=== PATIENT | female | born 1975 | race African-American/Black ===

== ENCOUNTER 2016-07-14 22:16 | Emergency (ER) | payer MEDICAID ==
[~2016-07-14] VITALS: Ht 185.4 cm; Wt 113.4 kg
[2016-07-14 22:31] VITALS: BP 139/88
[2016-07-15] MEDS ORDERED: KETOROLAC TROMETH 60MG/2ML VIAL IM ONE (03:30)
== END 2016-07-15 05:18 | disposition home or self-care (01) ==
LOC: ER 22:21
DX: S33.5XXA Sprain of ligaments of lumbar spine, initial encounter (principal); M54.16 Radiculopathy, lumbar region; G89.29 Other chronic pain; M54.5 Low back pain; W18.39XA Other fall on same level, initial encounter; Y93.89 Activity, other specified; Y92.89 Other specified places as the place of occurrence of the external cause; Y99.8 Other external cause status
CPT/HCPCS: 72131; 96372; 99284; J1885

== ENCOUNTER 2016-07-30 15:13 | Emergency (ER) | payer MEDICAID ==
[~2016-07-30] VITALS: Ht 185.4 cm; Wt 113.4 kg
[2016-07-30 15:25] VITALS: BP 137/88
[2016-07-30 16:59] LABS: Urine Bilirubin Negative (Negative); Urine Color Yellow (Yellow); Urine Glucose Normal (Normal); Urine Ketone Negative (Negative); Urine Nitrite Negative (Negative); Urine RBC 6 /hpf (0 - 4); Urine Squamous Epithelial Cell MOD /hpf (<5); Urine WBC Clumps PRESENT /hpf (None Seen)
[2016-07-30 17:39] LABS: Urine Blood 2+ /uL (Negative)
== END 2016-07-30 18:13 | disposition left against medical advice (07) ==
LOC: ER 15:20
DX: M54.5 Low back pain (principal); Z53.21 Procedure and treatment not carried out due to patient leaving prior to being seen by health care provider
CPT/HCPCS: 81001; 81025

== ENCOUNTER 2019-08-08 11:20 | Inpatient (IN) | payer MEDICAID ==
[~2019-08-08] VITALS: Ht 180.3 cm; Wt 127.0 kg
[2019-08-08 11:59] LABS: Urine Bacteria FEW /hpf (None Seen); Urine Blood 2+ /uL (Negative); Urine Mucus FEW (None Seen); Urine Specific Gravity 1.019 (1.001-1.035); Urine WBC 18 /hpf (0 - 5)
[2019-08-08] MEDS ORDERED: SODIUM CHLORIDE 0.9% 1,000 ML IVB ONE (12:38)
[2019-08-08] MEDS ORDERED: ONDANSETRON HCL 4 MG/2 ML VIAL IV ONE (12:45)
[2019-08-08 13:27] LABS: Basophils # (auto) 0.1 10 ^3/uL (0-0.2); Eosinophils # (auto) 0 10 ^3/uL (0-0.8); Eosinophils % (auto) 0.5 % (0.0-7.0); Neutrophils # (auto) 5.7 10 ^3/uL (1.6-8.6)
[2019-08-08 13:29] LABS: Basophils % (auto) 0.7 % (0.0-2.0); Hematocrit 45.3 % (36.0-46.0); Hemoglobin 15.1 g/dL (12.2-16.2); Lymphocytes # (auto) 1.9 10 ^3/uL (0.4-5.4); Lymphocytes % (auto) 22.2 % (10.0-50.0); Mean Corpuscular Hemoglobin 27.2 pg (28.0-32.0); Mean Corpuscular Hgb Conc. 33.3 g/dL (32.0-36.0); Mean Corpuscular Volume 81.7 fL (80.0-100.0); Monocytes # (auto) 0.7 10 ^3/uL (0-1.3); Monocytes % (auto) 8.6 % (0.0-12.0); Nucleated Red Blood Cells % 0.1 %; Platelet Count (auto) 511 10^3/uL (140-450); Red Blood Cells 5.54 10^6/uL (4.0-5.20); Red Cell Distribution Width 14.7 % (11.8-14.3); White Blood Cell 8.4 10^3/uL (4.4-10.8)
[2019-08-08 13:45] LABS: Albumin 3.4 g/dL (3.4-5.0)
[2019-08-08] MEDS ORDERED: MORPHINE SULF INJ 2 MG/ML SYRINGE 1ML IV ONE (13:45)
[2019-08-08 13:49] LABS: Bilirubin, Total 0.5 mg/dL (0.2-1.0); Total Protein 8.2 g/dL (6.4-8.2)
[2019-08-08 13:56] LABS: Magnesium 2.5 mg/dL (1.6-2.6)
[2019-08-08 14:08] LABS: Potassium 2.2 mmol/L (3.5-5.1)
[2019-08-08] MEDS ORDERED: POTASSIUM CHL 20MEQ/100ML 100 ML IV SCH (14:30)
[2019-08-08] MEDS ORDERED: cefTRIAXone 1GM/50ML D5W 50 ML IV ONE ×2 (14:30→15:30)
[2019-08-08] MEDS ORDERED: MORPHINE SULF INJ 2 MG/ML SYRINGE 1ML IV PRN (15:30)
[2019-08-08] MEDS ORDERED: ACETAMINOPHEN 500 MG TAB PO PRN (15:30)
[2019-08-08] MEDS ORDERED: traMADol HCL 50 MG TAB PO PRN (15:30)
[2019-08-08] MEDS: FAMOTIDINE (10MG/ML) 2ML VL IV SCH (15:30)
[2019-08-08] MEDS ORDERED: NITROGLYCERIN 0.4 MG SL TAB SL PRN (15:30)
[2019-08-08] MEDS ORDERED: POTASSIUM EFFERVESENT TAB 25 MEQ PO ONE (15:30)
[2019-08-08] MEDS ORDERED: TEMAZEPAM 15 MG CAP PO PRN (15:30)
[2019-08-08 17:00] VITALS: BP 135/73
[2019-08-08] MEDS: PROMETHAZINE HCL 25 MG/ML 1ML IV PRN (17:12)
[2019-08-08] MEDS: SOD CHL 0.9%/ KCL 40MEQ 1,000 ML IV SCH (17:30)
[2019-08-08] MEDS: POTASSIUM CHL 20MEQ/100ML 100 ML IV SCH ×3 (17:30→22:34)
--- NOTE | 2019-08-08 17:30 | NUR ---
Telemetry admit from DIANA GUARDADO,MAY WERNER admitted to Telemetry unit after SBAR received. Patient oriented to Janay Lewis, primary RN, unit, room, bed, and unit policies regarding patient care and visiting hours. Patient now on continuous telemetry monitoring, tele box #4 and telemetry reading on arrival to unit is SR. Patient placed on bedside oxygen, weighed by bedscale and encouraged to call if they need something. All questions and concerns addressed, patient verbalized understanding. Patient is vomitting. Patient is c/o abdominal pain, rates it 9/10.
[2019-08-08] MEDS ORDERED: HCTZ25T PO (18:17)
[2019-08-08] MEDS: MORPHINE SULF INJ 2 MG/ML SYRINGE 1ML IV PRN (18:20)
--- NOTE | 2019-08-08 18:36 | NUR ---
PAIN Pain medication administered per MD orders.
--- NOTE | 2019-08-08 19:00 | NUR ---
closing note Patient comfortably resting, no s/s of distress noted. Bed at lowest locked position and call light within reach. Care endorsed to NOC RN.
--- NOTE | 2019-08-08 19:45 | NUR ---
Opening Shift Note Assumed care of patient, resting in bed with breaths even and unlabored. No S/S of distress/SOB or pain noted. Bed is in lowest locked position with bed rails up x2 and call light is within reach. Instructed on POC and to call for assist PRN.
[2019-08-08 22:00] VITALS: BP 111/48
[2019-08-09] MEDS: FAMOTIDINE (10MG/ML) 2ML VL IV SCH ×2 (04:24→15:03)
[2019-08-09] MEDS: SOD CHL 0.9%/ KCL 40MEQ 1,000 ML IV SCH ×4 (04:28→20:33)
[2019-08-09 05:00] VITALS: BP 102/62
[2019-08-09 05:38] LABS: Basophils # (auto) 0 10 ^3/uL (0-0.2); Basophils % (auto) 0.7 % (0.0-2.0); Eosinophils # (auto) 0.2 10 ^3/uL (0-0.8); Eosinophils % (auto) 2.5 % (0.0-7.0); Hematocrit 39.9 % (36.0-46.0); Hemoglobin 13.2 g/dL (12.2-16.2); Lymphocytes # (auto) 1.3 10 ^3/uL (0.4-5.4); Lymphocytes % (auto) 19.6 % (10.0-50.0); Mean Corpuscular Hemoglobin 27.3 pg (28.0-32.0); Mean Corpuscular Hgb Conc. 33.1 g/dL (32.0-36.0); Mean Corpuscular Volume 82.3 fL (80.0-100.0); Monocytes # (auto) 0.7 10 ^3/uL (0-1.3); Monocytes % (auto) 11.3 % (0.0-12.0); Neutrophils # (auto) 4.2 10 ^3/uL (1.6-8.6); Neutrophils % (auto) 65.9 % (37.0-80.0); Nucleated Red Blood Cells % 0.1 %; Platelet Count (auto) 395 10^3/uL (140-450); Red Blood Cells 4.85 10^6/uL (4.0-5.20); Red Cell Distribution Width 14.6 % (11.8-14.3); White Blood Cell 6.4 10^3/uL (4.4-10.8)
[2019-08-09 05:52] LABS: Albumin 2.7 g/dL (3.4-5.0); Calcium 8.2 mg/dL (8.5-10.1)
[2019-08-09 05:57] LABS: BUN/Creatinine Ratio 11.7; Bilirubin, Total 0.5 mg/dL (0.2-1.0); Total Protein 6.6 g/dL (6.4-8.2)
--- NOTE | 2019-08-09 06:13 | NUR ---
Critical lab, Hospitalist paged: Critical potassium level of 2.6 received. Paged hospitalist regarding critical potassium level. Waiting for call back.
[2019-08-09 06:14] LABS: Potassium 2.6 mmol/L (3.5-5.1)
--- NOTE | 2019-08-09 06:17 | NUR ---
Hospitalist called back: Hospitalist Elke called back. Notified of critical potassium level. New orders received, to place orders.
[2019-08-09] MEDS ORDERED: POTASSIUM CHL 20MEQ/100ML 100 ML IV ONE ×2 (06:30→09:00)
--- NOTE | 2019-08-09 07:45 | NUR ---
CALLED PHARMACY: Called pharmacy to clarify and fix K rider order. 40 meq potassium k rider was ordered by the MD. One bag of 20 meq potassium was given, need one more to be scheduled. Pharmacy to correct order and schedule last bag of potassium k rider for total of 40 meq.
--- NOTE | 2019-08-09 08:00 | NUR ---
Opening Shift Note Assumed care of patient, awake, alert, and oriented. No S/S of distress/SOB or pain. Bed in lowest/locked position, bed rails up x2, call light within reach. Instructed on POC and to call for assist PRN. Will continue to monitor for changes Q1hr and PRN.
[2019-08-09] MEDS: cefTRIAXone 1GM/50ML D5W 50 ML IV SCH (08:51)
[2019-08-09 09:08] VITALS: BP 125/80
[2019-08-09 12:33] VITALS: BP 112/71
--- NOTE | 2019-08-09 14:16 | NUR ---
CRITICAL LAB RECEIVED CRITICAL POTASSIUM 2.9. DR GARRISON MADE AWARE. NEW ORDERS RECEIVED/WILL CARRY OUT. WILL CONTINUE TO MONITOR
[2019-08-09] MEDS ORDERED: POTASSIUM CHL 20 Meq TABLET PO ONE (14:30)
[2019-08-09] MEDS ORDERED: POTASSIUM CHLORIDE 40 MEQ, LIDOCAINE 1% (LOCAL ANESTH.) 4 ML in SODIUM CHL 0.9% 100 ML IV ONE (14:30)
[2019-08-09] MEDS: metroNIDAZOLE 500MG/100ML 100 ML IV SCH ×2 (15:03→21:30)
[2019-08-09 17:13] VITALS: BP 101/75
[2019-08-09 23:23] VITALS: BP 124/79
--- NOTE | 2019-08-10 03:25 | NUR ---
OPENING SHIFT NOTE: ARRIVED ON SHIFT REPORT RECEIVED. PATIENT RESTING IN BED, NO SIGNS OF DISTRESS. RESPIRATIONS EVEN AND UNLABORED. WILL CONTINUE TO MONITOR.
[2019-08-10] MEDS: FAMOTIDINE (10MG/ML) 2ML VL IV SCH ×3 (04:29→21:08)
[2019-08-10 05:00] VITALS: BP 112/80
[2019-08-10 06:23] LABS: INR 1.03 (0.9-1.15); Partial Thromboplastin Time 28.6 sec (23.64-32.05)
[2019-08-10 06:27] LABS: Potassium 3.2 mmol/L (3.5-5.1)
[2019-08-10] MEDS: metroNIDAZOLE 500MG/100ML 100 ML IV SCH ×3 (06:33→21:09)
[2019-08-10 06:35] LABS: BUN/Creatinine Ratio 12.9; Calcium 8.1 mg/dL (8.5-10.1)
--- NOTE | 2019-08-10 08:06 | NUR ---
PATIENT TAKEN DOWN TO HIDA SCAN.
[2019-08-10 08:57] VITALS: BP 103/69
--- NOTE | 2019-08-10 12:02 | NUR ---
PATIENT TAKEN DOWN TO OR.
--- NOTE | 2019-08-10 12:45 | NUR ---
CALL FROM PACU: PATIENT ADMITTED TO SIPPING COFFEE LEFT FROM NEIGHBORS TRAY AFTER HIDA SCAN. PATIENT TO BE BROUGHT BACK UP TO THE FLOOR.
--- NOTE | 2019-08-10 12:50 | NUR ---
PATIENT BACK FROM OR. NO PROCEDURE DONE AT THIS TIME. PATIENT RE-SCHEDULED FOR TOMORROW.
[2019-08-10 13:00] VITALS: BP 118/73
--- NOTE | 2019-08-10 15:20 | NUR ---
PATIENT GIVEN SANDWICH AND SNACKS.
[2019-08-10] MEDS: SOD CHL 0.9%/ KCL 40MEQ 1,000 ML IV SCH (15:33)
[2019-08-10] MEDS: cefTRIAXone 1GM/50ML D5W 50 ML IV SCH (15:33)
[2019-08-10] MEDS: PROMETHAZINE HCL 25 MG/ML 1ML IV PRN ×2 (17:03→20:58)
[2019-08-10 18:18] VITALS: BP 125/73
--- NOTE | 2019-08-10 19:26 | NUR ---
CARE ENDORSED TO MELISSA PÉREZ.
[2019-08-10] MEDS: MORPHINE SULF INJ 2 MG/ML SYRINGE 1ML IV PRN (20:59)
[2019-08-10 22:00] VITALS: BP 137/89
[2019-08-11] MEDS: SOD CHL 0.9%/ KCL 40MEQ 1,000 ML IV SCH ×2 (04:25→17:12)
[2019-08-11 05:00] VITALS: BP 108/60
[2019-08-11] MEDS: metroNIDAZOLE 500MG/100ML 100 ML IV SCH ×3 (05:31→21:48)
[2019-08-11 07:00] LABS: Potassium 3.2 mmol/L (3.5-5.1)
[2019-08-11 07:06] LABS: BUN/Creatinine Ratio 11.3; Calcium 8.1 mg/dL (8.5-10.1)
[2019-08-11] MEDS ORDERED: ceFAZolin 1GM/50ML 50 ML IV ONE (07:17)
[2019-08-11] MEDS ORDERED: LIDOCAINE 1% (LOCAL ANESTH.) PF 5ml SDV ONE (07:36)
[2019-08-11] MEDS ORDERED: SUCCINYLCHOLINE CHLORIDE 20 MG/ML 10ML VIAL IV ONE (07:37)
[2019-08-11] MEDS ORDERED: MIDAZOLAM HCL 1MG/1ML-2 ML VIAL ONE (07:39)
[2019-08-11] MEDS ORDERED: METOCLOPRAMIDE HCL 5MG/ml INJ 2ml VIAL ONE (07:41)
[2019-08-11] MEDS ORDERED: ROCURONIUM 10MG/ML 10ML VIAL IV ONE (07:41)
[2019-08-11] MEDS ORDERED: PROPOFOL 10 MG/ML 20 ML IV ONE (07:41)
[2019-08-11] MEDS ORDERED: fentaNYL CITRATE 100 MCG/2 ML VL ONE (07:50)
[2019-08-11] MEDS ORDERED: NALOXONE HCL 0.4 MG/ML VIAL IV PRN (08:00)
[2019-08-11] MEDS ORDERED: HYDROmorphone HCL 2 MG/ML VL IV PRN ×2 (08:00)
[2019-08-11] MEDS ORDERED: ONDANSETRON HCL 4 MG/2 ML VIAL IV PRN (08:00)
[2019-08-11] MEDS ORDERED: KETOROLAC TROMETH 30 MG/ML 1ML VIAL ONE (08:06)
[2019-08-11] MEDS ORDERED: ESMOLOL HCL 10 ML IV ONE (08:09)
[2019-08-11] MEDS ORDERED: GLYCOPYRROLATE 0.2 MG/ML 1ML VIAL ONE (08:42)
[2019-08-11] MEDS ORDERED: NEOSTIGMINE 1 MG/ML INJ (10mg/10ML VIAL) ONE (08:42)
--- NOTE | 2019-08-11 09:00 | NUR ---
Unable to obtain 0900 vitals. Pt is downstairs in OR at this time .
--- NOTE | 2019-08-11 09:50 | NUR ---
PT IS BACK TO HER ROOM VIA HOSPITAL BED TO HER ROOM 215B, ALERT ORIENTED X4, SLEEPY, AND OCCASIONALLY MOANING FROM PAIN AT THE SURGICAL SITE, HEAD OF BED ELEVATED, OXYGEN 2 L NC, BED ALARM ACTIVATED
--- NOTE | 2019-08-11 09:51 | NUR ---
PT HAS ABDOMINAL BINDER, 3 SMALL INCISION NOTED WITH RT LOWER ADDY DRAINAGE WITH 3 ML RED DRAINAGE
[2019-08-11] MEDS: cefTRIAXone 1GM/50ML D5W 50 ML IV SCH (10:04)
[2019-08-11] MEDS: FAMOTIDINE (10MG/ML) 2ML VL IV SCH ×2 (10:05→21:48)
[2019-08-11] MEDS: MORPHINE SULF INJ 2 MG/ML SYRINGE 1ML IV PRN (10:20)
--- NOTE | 2019-08-11 10:30 | NUR ---
BED SIDE COMMODE ASSISTED PT TO BSC TO URINATE, KEPT CLEAN AND DRY, PT WAS ABLE TO GO BACK IN BED WITHOUT ANY ASSISTANCE
--- NOTE | 2019-08-11 11:00 | NUR ---
DR GARRISON AT BED SIDE FOLLOWING UP ON PT
[2019-08-11 13:00] VITALS: BP 141/76
--- NOTE | 2019-08-11 13:40 | NUR ---
PAIN AT SURGICAL SITE PT IS VERY INCONSOLABLE, VERY UNCOMFORTABLY, PAIN 10/10 AT SURGICAL SITE, NEW ORDERS OF DILAUDID OBTAIN
[2019-08-11] MEDS: HYDROmorphone HCL 2 MG/ML VL IV PRN ×3 (13:50→21:00)
--- NOTE | 2019-08-11 14:47 | NUR ---
Nutrition Assessment Notes Please refer to link for full assessment notes. Est Energy needs: 1777-8740 kcals (14-18 kcal/kgBW) Est Protein needs: 106-141 gms/day (1.5-2.0 gm/kgIBW) d/t pt adiposity Will continue to monitor and reassess prn. Addendum: 08/11/19 at [address] Amended: Links added.
[2019-08-11 17:00] VITALS: BP 148/68
--- NOTE | 2019-08-11 18:25 | NUR ---
PT CONTINUE STABLE, TOLERATING DILAUDID WELL, ABLE TO USE BSC NEEDED, CONTINUE MONITORING
--- NOTE | 2019-08-11 20:00 | NUR ---
OPENING NOTE RECEIVED REPORT FROM BHARTI RN. ASSUMING ROLE OF CARE OF PATIENT AT THIS TIME. PATIENT SHOWING NO SIGNS OF PAIN, SHORTNESS OF BREATH, OR DISTRESS AT THIS TIME. DRESSING INSPECTED. DRIED BLOOD NOTED AROUND INCISION SITES. WILL CONTINUE TO MONITOR. PATIENT EDUCATED ON PLAN OF CARE FOR THE NIGHT AND PATIENT VERBALIZED UNDERSTANDING. BED LOWERED, CALL LIGHT WITHIN REACH AND PATIENT WILL BE ROUNDED ON EVERY HOUR AND NEEDED.
[2019-08-11 22:00] VITALS: BP 132/81
[2019-08-12] MEDS: HYDROmorphone HCL 2 MG/ML VL IV PRN ×5 (01:42→21:58)
[2019-08-12] MEDS: SOD CHL 0.9%/ KCL 40MEQ 1,000 ML IV SCH (03:15)
[2019-08-12 05:00] VITALS: BP 119/70
--- NOTE | 2019-08-12 05:20 | NUR ---
ADDY DRAIN EMPTIED OF APPROXIMATELY 50 ML OF SANGUINEOUS FLUID.
[2019-08-12] MEDS: metroNIDAZOLE 500MG/100ML 100 ML IV SCH ×3 (05:38→21:58)
[2019-08-12 07:42] LABS: BUN/Creatinine Ratio 9.9; Calcium 8.3 mg/dL (8.5-10.1); Potassium 3.5 mmol/L (3.5-5.1)
[2019-08-12 09:00] VITALS: BP 109/76
[2019-08-12] MEDS: cefTRIAXone 1GM/50ML D5W 50 ML IV SCH (11:15)
[2019-08-12 13:00] VITALS: BP 123/76
[2019-08-12 17:00] VITALS: BP 129/77
--- NOTE | 2019-08-12 19:54 | NUR ---
RECEIVED PATIENT FROM DAY SHIFT RN. PATIENT RESTING IN BED. NO S/S OF DISTRESS NOTED. C/O PAIN @ 5/10 AFTER PAIN MEDICATION GIVEN EARLIER. REINFORCED SCHEDULE OF PAIN MANAGEMENT. WILL COME BACK FOR PAIN MEDICATION LATER WHEN THE TIME IS DUE AND PER PATIENT REQUESTS. DRESSING ON ABD D/I WITH ABD BINDER ON. ADDY DRAIN IN PLACE. POC INSTRUCTED AND ENCOURAGED PATIENT TO CALL FOR YARDER OPERATOR IF NEEDED. BED IN LOWEST POSITION WITH SIDE RAILS UP X 2. CALL TATUM WITHIN REACH. CONTINUE TO MONITOR FOR CHANGES Q1H AND PRN.
[2019-08-12] MEDS: FAMOTIDINE 20 MG TAB PO SCH (21:58)
[2019-08-12 22:00] VITALS: BP 127/77
--- NOTE | 2019-08-12 22:10 | NUR ---
PATIENT C/O PAIN @ 09/19. MEDICATED PATIENT ORDERED. CONTINUE TO MONITOR.
--- NOTE | 2019-08-12 22:25 | NUR ---
REASSESSED PAIN 08/19. CONTINUE TO MONITOR.
[2019-08-13] MEDS: HYDROmorphone HCL 2 MG/ML VL IV PRN ×3 (01:17→09:22)
--- NOTE | 2019-08-13 01:18 | NUR ---
PATIENT C/O PAIN @ 10/20. MEDICATED PATIENT ORDERED. CONTINUE TO MONITOR.
--- NOTE | 2019-08-13 01:45 | NUR ---
REASSESSED PAIN 06/19. CONTINUE TO MONITOR.
--- NOTE | 2019-08-13 02:57 | NUR ---
PATIENT SLEEPING. NO S/S OF DISTRESS AND PAIN NOTED. CONTINUE TO MONITOR.
[2019-08-13 05:00] VITALS: BP_SYST 106; BP_SYST 122; BP_DIAS 52; BP_DIAS 67
[2019-08-13] MEDS: metroNIDAZOLE 500MG/100ML 100 ML IV SCH (06:13)
--- NOTE | 2019-08-13 06:14 | NUR ---
PATIENT C/O PAIN @ 09/19. MEDICATED PATIENT ORDERED. CONTINUE TO MONITOR.
[2019-08-13 07:18] LABS: Calcium 8.2 mg/dL (8.5-10.1); Potassium 3.3 mmol/L (3.5-5.1)
[2019-08-13] MEDS ORDERED: POTASSIUM CHL 20 Meq TABLET PO ONE (08:00)
--- NOTE | 2019-08-13 08:00 | NUR ---
ASSESSMENT NOTE PT IS ALERT ORIENTED X4, RESTING IN BED COMFORTABLY IN LOW BLANCHARD POSITION, DENIES PAIN AT THIS TIME 0/10, ABLE TO SELF REPOSITION AND VERBALIS HER NEEDS, AMBULATE NEEDED, PT CONTINUE TO HAVE ADDY DRAINAGE AT RT LOWER ABDOMEN, NO OUTPUT YET, 3 SMALL DRY DRESSING NOTED, ABDOMEN BINDER, CALL LIGHT WITHIN REACH
[2019-08-13] MEDS: cefTRIAXone 1GM/50ML D5W 50 ML IV SCH (08:48)
[2019-08-13] MEDS: FAMOTIDINE 20 MG TAB PO SCH (08:48)
[2019-08-13 09:00] VITALS: BP 109/63
--- NOTE | 2019-08-13 09:30 | NUR ---
DR GARRISON AT BED SIDE FOLLOWING UP ON PT, INFORM PT THAT SHE WILL ADVANCE HER DIET TO SOFT, AND PLANING TO DISCHARGE HOME TODAY AFTER LUNCH, IF TOLERATED DIET WELL
[2019-08-13] MEDS ORDERED: DOCUSATE SOD 100 MG CAP PO SCH (10:00)
[2019-08-13] MEDS ORDERED: levoFLOXacin 500 MG TAB PO SCH (10:00)
[2019-08-13] MEDS ORDERED: POTA-220 PO (11:55)
[2019-08-13] MEDS ORDERED: LEVO-28 PO (11:55)
[2019-08-13] MEDS ORDERED: FAMO20TA10 PO (11:55)
[2019-08-13] MEDS ORDERED: MET500T PO (11:55)
[2019-08-13 13:00] VITALS: BP 110/59
[2019-08-13] MEDS ORDERED: metroNIDAZOLE 500 MG TAB PO SCH (14:00)
--- NOTE | 2019-08-13 14:03 | NUR ---
PT TOLERATED DIET WELL, DR GARRISON MADE AWARE
--- NOTE | 2019-08-13 15:30 | NUR ---
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
--- NOTE | 2019-08-13 15:50 | NUR ---
SPOKE WITH DR GARRISON REGARDING RX OF [facility], RX IN THE CHART, GIVEN TO PT, SIGN RX COPY ON RECIEVING
--- NOTE | 2019-08-13 15:52 | NUR ---
[facility] HOME PT IS WAITING FOR HER MOM TO PICK HER UP, A NEW ABDOMINAL BINDER GIVEN TO PT
--- NOTE | 2019-08-13 16:31 | NUR ---
Discharge instructions given as ordered. Encourage to follow up with PMD as instructed. All questions and concerns addressed. Patient verbalized understanding. Medication reconciliation form completed and copy given to patient . IV removed with catheter intact, pressure dressing applied. Patient taken to vehicle via wheelchair with all personal belongings, accompanied by staff and family member. No distress noted at time of departure.
== END 2019-08-13 16:30 | disposition home or self-care (01) | DRG 263 ==
LOC: EDBD 11:20 → ER 11:20 → TELE 11:21 → TELE-CENTR 17:25 → CENTRAL 08-12 10:34
PROVIDERS: ADMIT Internal Medicine; ATTEND Internal Medicine
PROC: 0DNU4ZZ Release Omentum, Percutaneous Endoscopic Approach (ICD-10-PCS; 2019-08-11)
PROC: 3E013GC Introduction of Other Therapeutic Substance into Subcutaneous Tissue, Percutaneous Approach (ICD-10-PCS; 2019-08-11)
PROC: 0FT44ZZ Resection of Gallbladder, Percutaneous Endoscopic Approach (ICD-10-PCS; principal; 2019-08-11 07:36)
DX: K80.12 Calculus of gallbladder with acute and chronic cholecystitis without obstruction (principal); E66.01 Morbid (severe) obesity due to excess calories; N10 Acute pyelonephritis; N20.1 Calculus of ureter; E87.1 Hypo-osmolality and hyponatremia; E87.6 Hypokalemia; K66.0 Peritoneal adhesions (postprocedural) (postinfection); I10 Essential (primary) hypertension; Z82.49 Family history of ischemic heart disease and other diseases of the circulatory system; Z83.3 Family history of diabetes mellitus; Z68.39 Body mass index [BMI] 39.0-39.9, adult; D47.3 Essential (hemorrhagic) thrombocythemia
CPT/HCPCS: 36415; 71045; 74176; 76705; 78226; 80048; 80053; 81001; 81025; 82150; 82247; 83690; 83735; 84132; 85025; 85610; 85730; 86850; 86900; 86901; 87070; 87075; 87086; 87205; 96361; 96365; 96375; G0378; J0330; J0690; J0696; J1885; J2001; J2250; J2405; J2704; J3480; J3490

== ENCOUNTER 2021-06-20 23:21 | Emergency (ER) | payer MEDICAID ==
[~2021-06-20] VITALS: Ht 185.4 cm; Wt 122.0 kg
[~2021-06-20 23:21] MED LIST: FAMO20TA10 PO; HYDR25TA5 PO; LEVO-28 PO; MET500T PO; POTA-220 PO
[2021-06-21] MEDS ORDERED: SODIUM CHLORIDE 0.9% 1,000 ML IVB ONE (01:00)
[2021-06-21] MEDS ORDERED: MORPHINE SULFATE 4 MG/ML SYR/VIAL IV ONE (01:00)
[2021-06-21] MEDS ORDERED: DONNATAL 5ml ORAL Elix (BELLADONNA ALK-PHENOBARB) PO ONE (01:00)
[2021-06-21] MEDS ORDERED: ALUM & MAG HYDROX-SIMETH LIQ(MAALOX) 30 ML PO ONE (01:00)
[2021-06-21] MEDS ORDERED: IOHEXOL 300 MG/ML 100ML BOTTLE IJ ONE (01:01)
[2021-06-21 01:43] LABS: Basophils # (auto) 0.1 10 ^3/uL (0-0.2); Basophils % (auto) 1.1 % (0.0-2.0); Eosinophils # (auto) 0.2 10 ^3/uL (0-0.8); Eosinophils % (auto) 2.2 % (0.0-7.0); Hematocrit 40.4 % (36.0-46.0); Hemoglobin 13.6 g/dL (12.2-16.2); Lymphocytes # (auto) 2.1 10 ^3/uL (0.4-5.4); Lymphocytes % (auto) 23.8 % (10.0-50.0); Mean Corpuscular Hemoglobin 28.3 pg (28.0-32.0); Mean Corpuscular Hgb Conc. 33.6 g/dL (32.0-36.0); Mean Corpuscular Volume 84.2 fL (80.0-100.0); Monocytes # (auto) 0.7 10 ^3/uL (0-1.3); Monocytes % (auto) 7.5 % (0.0-12.0); Neutrophils # (auto) 5.8 10 ^3/uL (1.6-8.6); Neutrophils % (auto) 65.4 % (37.0-80.0); Red Blood Cells 4.79 10^6/uL (4.0-5.20); Red Cell Distribution Width 14.7 % (11.8-14.3); White Blood Cell 8.8 10^3/uL (4.4-10.8)
[2021-06-21 02:09] LABS: Albumin 3.4 g/dL (3.4-5.0); Calcium 8.8 mg/dL (8.5-10.1)
[2021-06-21 02:14] LABS: BUN/Creatinine Ratio 8.8; Bilirubin, Total 0.3 mg/dL (0.2-1.0); Total Protein 7.3 g/dL (6.4-8.2)
[2021-06-21 04:04] VITALS: BP 117/68
== END 2021-06-21 04:05 | disposition home or self-care (01) ==
LOC: ER 23:21
DX: D17.5 Benign lipomatous neoplasm of intra-abdominal organs (principal); I10 Essential (primary) hypertension; Z79.2 Long term (current) use of antibiotics; Z79.899 Other long term (current) drug therapy
CPT/HCPCS: 36415; 74177; 80053; 83605; 83690; 84484; 85025; 96361; 96374; 99285; J2270; J7030; Q9967; 93005

== ENCOUNTER 2023-04-20 15:27 | Emergency (ER) | payer MEDICAID ==
[~2023-04-20] VITALS: Ht 185.4 cm; Wt 128.8 kg
[~2023-04-20 15:27] MED LIST changes: +CEPH500C PO; -LEVO-28 PO; +LEVO500T91 PO
[2023-04-20] MEDS ORDERED: METOCLOPRAMIDE HCL 10 MG TAB PO ONE (15:45)
[2023-04-20] MEDS: METOCLOPRAMIDE HCL 5MG/ml INJ 2ml VIAL IV ONE (15:45)
[2023-04-20] MEDS: ENALAPRIL MALEATE 10 MG TAB PO ONE (15:55)
[2023-04-20 15:57] LABS: Basophils # (auto) 0 10 ^3/uL (0-0.2); Basophils % (auto) 0.7 % (0.0-2.0); Eosinophils # (auto) 0.2 10 ^3/uL (0-0.8); Eosinophils % (auto) 2.9 % (0.0-7.0); Hematocrit 46.1 % (36.0-46.0); Hemoglobin 14.8 g/dL (12.2-16.2); Lymphocytes # (auto) 2.1 10 ^3/uL (0.4-5.4); Lymphocytes % (auto) 34.2 % (10.0-50.0); Mean Corpuscular Hemoglobin 27.2 pg (28.0-32.0); Mean Corpuscular Hgb Conc. 32.1 g/dL (32.0-36.0); Mean Corpuscular Volume 84.8 fL (80.0-100.0); Monocytes # (auto) 0.4 10 ^3/uL (0-1.3); Monocytes % (auto) 6.1 % (0.0-12.0); Neutrophils # (auto) 3.5 10 ^3/uL (1.6-8.6); Neutrophils % (auto) 56.1 % (37.0-80.0); Nucleated Red Blood Cells % 0.3 %; Red Blood Cells 5.44 10^6/uL (4.0-5.20); White Blood Cell 6.3 10^3/uL (4.4-10.8)
[2023-04-20 16:12] LABS: Alanine Aminotransferase 17 U/L (7-40); Alkaline Phosphatase 127 U/L (46-116); Anion Gap 7 (5-15); Aspartate Aminotransferase 17 U/L (13-40); BUN/Creatinine Ratio 7.5 (10.0-20.0); Bilirubin, Total 0.2 mg/dL (0.2-1.0); Blood Urea Nitrogen 8 mg/dL (9-23); Calcium 9.6 mg/dL (8.7-10.4); Carbon Dioxide 26 mmol/L (20-30); Chloride 107 mmol/L (98-107); Glucose 103 mg/dL (74-106); Lipase 46 U/L (12-53); Potassium 3.5 mmol/L (3.5-5.1); Sodium 140 mmol/L (136-145); Total Protein 6.9 g/dL (5.7-8.2)
[2023-04-20 16:45] LABS: Bilirubin, Direct < 0.1 mg/dL (<0.3)
[2023-04-20] MEDS: IOHEXOL 300 MG/ML 100ML BOTTLE IJ ONE (17:15)
[2023-04-20] MEDS ORDERED: PANT40TA2 PO (18:11)
[2023-04-20 19:25] VITALS: BP 186/106; PULSE 75; RESP 16; TEMP 98.3; O2SAT 100
== END 2023-04-20 19:35 | disposition home or self-care (01) ==
LOC: ER 15:27
DX: K21.9 Gastro-esophageal reflux disease without esophagitis (principal); I10 Essential (primary) hypertension; F17.210 Nicotine dependence, cigarettes, uncomplicated
CPT/HCPCS: 36415; 71045; 74177; 76705; 80048; 80076; 83690; 84484; 85025; 99285; Q9967

== ENCOUNTER 2023-05-06 13:26 | Emergency (ER) | payer MEDICAID ==
[~2023-05-06] VITALS: Ht 185.4 cm; Wt 124.6 kg
[~2023-05-06 13:26] MED LIST changes: -CEPH500C PO; -FAMO20TA10 PO; -LEVO500T91 PO; -MET500T PO; +PANT40TA2 PO
[2023-05-06 16:25] LABS: Basophils # (auto) 0 10 ^3/uL (0-0.2); Basophils % (auto) 0.7 % (0.0-2.0); Eosinophils # (auto) 0.2 10 ^3/uL (0-0.8); Eosinophils % (auto) 2.7 % (0.0-7.0); Hematocrit 48.3 % (36.0-46.0); Hemoglobin 15.8 g/dL (12.2-16.2); Lymphocytes # (auto) 1.9 10 ^3/uL (0.4-5.4); Lymphocytes % (auto) 28.4 % (10.0-50.0); Mean Corpuscular Hemoglobin 27.4 pg (28.0-32.0); Mean Corpuscular Hgb Conc. 32.7 g/dL (32.0-36.0); Mean Corpuscular Volume 83.8 fL (80.0-100.0); Monocytes # (auto) 0.4 10 ^3/uL (0-1.3); Monocytes % (auto) 6.7 % (0.0-12.0); Neutrophils # (auto) 4.1 10 ^3/uL (1.6-8.6); Neutrophils % (auto) 61.5 % (37.0-80.0); Nucleated Red Blood Cells % 0.1 %; Red Blood Cells 5.76 10^6/uL (4.0-5.20); Red Cell Distribution Width 14.5 % (11.8-14.3); White Blood Cell 6.6 10^3/uL (4.4-10.8)
[2023-05-06 16:49] LABS: Urine Bacteria MANY /hpf (None Seen); Urine Blood 2+ /uL (Negative); Urine Budding Yeast OCCASIONAL /hpf (None Seen); Urine Clarity HAZY (Clear); Urine Color Yellow (Yellow); Urine Mucus FEW (None Seen); Urine Protein, UAD 1+ (Negative); Urine Specific Gravity 1.024 (1.001-1.035); Urine Urobilinogen Normal (Negative); Urine WBC 10 /hpf (0 - 5); Urine pH 6.5 (5.0-8.0)
[2023-05-06 17:28] LABS: Alanine Aminotransferase 17 U/L (7-40); Albumin 4.3 g/dL (3.2-4.8); Alkaline Phosphatase 131 U/L (46-116); Anion Gap 4 (5-15); Aspartate Aminotransferase 16 U/L (13-40); BUN/Creatinine Ratio 8.1 (10.0-20.0); Bilirubin, Total 0.3 mg/dL (0.2-1.0); Blood Urea Nitrogen 9 mg/dL (9-23); Calcium 9.8 mg/dL (8.7-10.4); Carbon Dioxide 28 mmol/L (20-30); Chloride 108 mmol/L (98-107); Glucose 103 mg/dL (74-106); Potassium 3.3 mmol/L (3.5-5.1); Sodium 140 mmol/L (136-145); Total Protein 7.6 g/dL (5.7-8.2)
[2023-05-06] MEDS ORDERED: TAMS0.4C36 PO (18:14)
[2023-05-06] MEDS ORDERED: HYDR-4798 PO (18:14)
[2023-05-06] MEDS ORDERED: BACDST PO (18:14)
[2023-05-06] MEDS: PROCHLORPERAZINE EDISYLATE 5 MG/ML 2ML VIAL IM ONE (18:58)
[2023-05-06] MEDS: DexAMETHasone SOD PHOS 10MG/1ML VIAL INJ IM ONE (18:58)
[2023-05-06] MEDS: diphenhdrAMINE HCL 50 MG/1 ML VL IM ONE (18:58)
[2023-05-06] MEDS: KETOROLAC TROMETH 60MG/2ML VIAL IM ONE (18:59)
[2023-05-06 19:05] VITALS: BP 173/105; PULSE 76; RESP 20; TEMP 98.9; O2SAT 98
== END 2023-05-06 19:06 | disposition home or self-care (01) ==
LOC: ER 13:26
DX: N20.0 Calculus of kidney (principal); N39.0 Urinary tract infection, site not specified; R42 Dizziness and giddiness; R51.9 Headache, unspecified; I10 Essential (primary) hypertension; Z90.49 Acquired absence of other specified parts of digestive tract; F17.210 Nicotine dependence, cigarettes, uncomplicated
CPT/HCPCS: 36415; 76775; 80053; 81001; 85025; 96372; 99284; J0780; J1100; J1200; J1885

== ENCOUNTER 2023-06-30 07:11 | Emergency (ER) | payer MEDICAID ==
[~2023-06-30] VITALS: Ht 185.4 cm; Wt 126.6 kg
[~2023-06-30 07:11] MED LIST changes: +BACDST PO; +HYDR-4798 PO; +TAMS0.4C36 PO
[2023-06-30 07:52] LABS: Urine Bacteria FEW /hpf (None Seen); Urine Blood 2+ /uL (Negative); Urine Clarity Clear (Clear); Urine Color Light-Yellow (Yellow); Urine Protein, UAD Negative (Negative); Urine Specific Gravity 1.017 (1.001-1.035); Urine Urobilinogen Normal (Negative); Urine WBC 5 /hpf (0 - 5); Urine pH 6.5 (5.0-9.0)
[2023-06-30] MEDS ORDERED: TRAM50TA2 PO (08:40)
[2023-06-30] MEDS ORDERED: CIPR-173 PO (08:41)
[2023-06-30 09:01] VITALS: BP 165/103; PULSE 77; RESP 16; TEMP 98.8; O2SAT 100
[2023-06-30] MEDS ORDERED: HYDR-4902 PO (10:07)
== END 2023-06-30 09:08 | disposition home or self-care (01) ==
LOC: ER 07:11
DX: N39.0 Urinary tract infection, site not specified (principal); I10 Essential (primary) hypertension; F17.210 Nicotine dependence, cigarettes, uncomplicated; F12.10 Cannabis abuse, uncomplicated
CPT/HCPCS: 74176; 81001

== ENCOUNTER 2023-10-08 12:59 | Emergency (ER) | payer MEDICAID ==
[~2023-10-08] VITALS: Ht 185.4 cm; Wt 124.6 kg
[~2023-10-08 12:59] MED LIST changes: +CIPR-173 PO; +HYDR-4902 PO; -TAMS0.4C36 PO; +TAMS0.4C39 PO; +TRAM50TA2 PO
[2023-10-08 13:38] LABS: Basophils # (auto) 0.1 10 ^3/uL (0-0.2); Basophils % (auto) 0.8 % (0.0-2.0); Eosinophils # (auto) 0.3 10 ^3/uL (0-0.8); Eosinophils % (auto) 4.5 % (0.0-7.0); Hematocrit 48.7 % (36.0-46.0); Hemoglobin 16.1 g/dL (12.2-16.2); Lymphocytes % (auto) 32.7 % (10.0-50.0); Mean Corpuscular Hgb Conc. 33.1 g/dL (32.0-36.0); Mean Corpuscular Volume 84.7 fL (80.0-100.0); Monocytes # (auto) 0.3 10 ^3/uL (0-1.3); Monocytes % (auto) 4.8 % (0.0-12.0); Neutrophils # (auto) 3.5 10 ^3/uL (1.6-8.6); Neutrophils % (auto) 57.2 % (37.0-80.0); Nucleated Red Blood Cells % 0.1 %; Platelet Count (auto) 266 10^3/uL (140-450); Red Blood Cells 5.75 10^6/uL (4.0-5.20); Red Cell Distribution Width 15.1 % (11.8-14.3); White Blood Cell 6.1 10^3/uL (4.4-10.8)
[2023-10-08 14:05] LABS: Alanine Aminotransferase 16 U/L (7-40); Albumin 3.8 g/dL (3.2-4.8); Alkaline Phosphatase 134 U/L (46-116); Anion Gap 5 (5-15); Aspartate Aminotransferase 14 U/L (13-40); BUN/Creatinine Ratio 7.5 (10.0-20.0); Blood Urea Nitrogen 8 mg/dL (9-23); Calcium 9.6 mg/dL (8.7-10.4); Carbon Dioxide 29 mmol/L (20-30); Chloride 106 mmol/L (98-107); Glucose 148 mg/dL (74-106); Potassium 3.3 mmol/L (3.5-5.1); Sodium 140 mmol/L (136-145)
[2023-10-08 14:06] LABS: Bilirubin, Total 0.3 mg/dL (0.2-1.0); Total Protein 6.6 g/dL (5.7-8.2)
[2023-10-08 15:54] LABS: Urine Bacteria MANY /hpf (None Seen); Urine Blood 2+ /uL (Negative); Urine Clarity Ex.Turbid (Clear); Urine Color Light-Orange (Yellow); Urine Mucus FEW (None Seen); Urine Protein, UAD 1+ (Negative); Urine Specific Gravity 1.024 (1.001-1.035); Urine Urobilinogen 2 mg/dL (Negative); Urine WBC 372 /hpf (0 - 5); Urine WBC Clumps PRESENT /hpf (None Seen); Urine pH 6.5 (5.0-9.0)
[2023-10-08 16:00] LABS: Lactic Acid w/Reflex 2.2 mmol/L (0.4-2.0)
[2023-10-08 16:02] VITALS: PULSE 89; RESP 16; TEMP 98.3; O2SAT 97
[2023-10-08 16:08] LABS: Amphetamine Screen, Urine Pos (NEGATIVE); Barbiturate Scree,Urine Neg (NEGATIVE); Benzodiazephine Screen, Urine Pos (NEGATIVE); Cocaine Screen, Urine Neg (NEGATIVE); Opiate Scree,Urine Neg (NEGATIVE)
[2023-10-08 16:09] LABS: Cannabinoid Screen, Urine Pos (NEGATIVE); Phencyclidine Screen, Urine Neg (NEGATIVE)
[2023-10-08] MEDS: NITROGLYCERIN 0.4 MG SL TAB SL ONE (16:17)
[2023-10-08] MEDS: SODIUM CHLORIDE 0.9% 1,000 ML IV ONE (16:18)
[2023-10-08] MEDS: HYDROcodone-ACET 5/325MG TAB PO ONE (16:28)
[2023-10-08 18:30] VITALS: BP 146/88; PULSE 83; RESP 16; O2SAT 97
[2023-10-08] MEDS: POTASSIUM CHL 20 Meq TABLET PO ONE (19:59)
[2023-10-08] MEDS ORDERED: ENAL1TAB48 PO (20:57)
[2023-10-08] MEDS ORDERED: TAMS0.4C39 PO (20:57)
== END 2023-10-08 20:18 | disposition home or self-care (01) ==
LOC: ER 12:59
DX: R07.89 Other chest pain (principal); M79.661 Pain in right lower leg; G89.29 Other chronic pain; R22.41 Localized swelling, mass and lump, right lower limb; I10 Essential (primary) hypertension; F17.210 Nicotine dependence, cigarettes, uncomplicated; F15.90 Other stimulant use, unspecified, uncomplicated; Z76.0 Encounter for issue of repeat prescription; Z98.890 Other specified postprocedural states; Z88.8 Allergy status to other drugs, medicaments and biological substances; Z79.899 Other long term (current) drug therapy
CPT/HCPCS: 36415; 71045; 80053; 80307; 81001; 83605; 83735; 83880; 84484; 85025; 93005; 93971; 96360; 99285; J7030

== ENCOUNTER 2024-07-10 14:45 | Inpatient (IN) | payer MEDICAID ==
[~2024-07-10] VITALS: Ht 185.4 cm; Wt 117.7 kg
[~2024-07-10 14:45] MED LIST changes: +ENAL1TAB48 PO
[2024-07-10 16:22] LABS: Basophils % (auto) 0.2 % (0.0-2.0); Eosinophils # (auto) 0 10 ^3/uL (0-0.8); Lymphocytes # (auto) 1.2 10 ^3/uL (0.4-5.4); Mean Corpuscular Hemoglobin 26.9 pg (28.0-32.0)
[2024-07-10 16:24] LABS: Basophils # (auto) 0 10 ^3/uL (0-0.2); Hematocrit 46.1 % (36.0-46.0); Hemoglobin 14.6 g/dL (12.2-16.2); Lymphocytes % (auto) 5.1 % (10.0-50.0); Mean Corpuscular Hgb Conc. 31.7 g/dL (32.0-36.0); Mean Corpuscular Volume 84.9 fL (80.0-100.0); Monocytes # (auto) 0.9 10 ^3/uL (0-1.3); Monocytes % (auto) 3.8 % (0.0-12.0); Neutrophils # (auto) 21.6 10 ^3/uL (1.6-8.6); Neutrophils % (auto) 90.9 % (37.0-80.0); Nucleated Red Blood Cells % 0.1 %; Platelet Count (auto) 333 10^3/uL (140-450); Red Blood Cells 5.43 10^6/uL (4.0-5.20); Red Cell Distribution Width 15.2 % (11.8-14.3); White Blood Cell 23.8 10^3/uL (4.4-10.8)
[2024-07-10 16:31] LABS: Chloride 106 mmol/L (98-107); Potassium 3.6 mmol/L (3.5-5.1); Sodium 142 mmol/L (136-145)
[2024-07-10 16:32] LABS: Anion Gap 10 (5-15); Carbon Dioxide 26 mmol/L (20-31)
[2024-07-10 16:33] LABS: Calcium 9.6 mg/dL (8.7-10.4)
[2024-07-10 16:38] LABS: BUN/Creatinine Ratio 7.7 (10.0-20.0); Blood Urea Nitrogen 11 mg/dL (9-23); Lipase 31 U/L (12-53); Magnesium 1.8 mg/dL (1.6-2.6)
[2024-07-10 16:39] LABS: Glucose 118 mg/dL (74-106)
--- NOTE | 2024-07-10 16:49 | ED.PDOC ---
GI ASSESSMENT HPI Comments 49F presents to the ER w/ prior MHx of HTN, DM, MA, Kidney Stones, Kidney Cyst;SHx of Cholecystectomy and the c/c of ABD pain. Pt reports on having upper ABD pain which started this morning and is associated w/ N/V as well as right flank pain. Pt notes that she had a UTI which subsided last week.Social Hx of tobacco use, rare alcohol use, and marijuana use. Denies chills, fever, N/V/D, SOB, CP. Denies any other associated symptom's, modifiers, or recent injuries or sick contact at this time. Chief Complaint: Abdominal Pain Time Seen by MD: 15:30 Primary Care Provider: MICHELLE Reviewed Notes: Nurses Notes, Medications, Allergies Allergies: Coded Allergies: Amlodipine (Verified Allergy, Severe, 10/08/23) Gabapentin (Verified Allergy, Severe, 10/08/23) Tramadol (Verified Allergy, Severe, 10/08/23) Home Meds Active Scripts Tamsulosin Hcl (Tamsulosin Hcl) 0.4 Mg Cap, 1 CAP PO DAILY, #30 CAP 5 Refills Prov:GABO BUNDY DO 10/08/23 Enalapril Maleate (Enalapril Maleate) 20 Mg Tab, 1 TAB PO DAILY, #30 TAB 1 Refill Prov:GABO BUNDY DO 10/08/23 Hydrocodone-Acetaminophen (Hydrocodone Bitartrate/AC 5-325 mg) 1 Tab Tab, 1 TAB PO Q8HP PRN for 7 Days, #21 TAB Prov:MARLEN DEWEY MD 06/30/23 Ciprofloxacin Hcl (Cipro) 500 Mg Tab, 1 TAB PO BID, #14 TAB Prov:MARLEN DEWEY MD 06/30/23 Tramadol Hcl (Tramadol Hcl) 50 Mg Tab, 50 MG PO Q8HP PRN for 5 Days, #15 TAB Prov:MARLEN DEWEY MD 06/30/23 Tamsulosin Hcl (Tamsulosin Hcl) 0.4 Mg Cap, 1 CAP PO DAILY, #30 CAP 5 Refills Prov:CARMELLA GARRISON 05/06/23 Hydrocodone-Acetaminophen (Hydrocodone Bitartrate/AC 10-325 mg) 1 Tab Tab, 1 TAB PO Q6HPRN PRN, #15 TAB Prov:CARMELLA GARRISON 05/06/23 Sulfamethoxazole W/Trimethopri (Bactrim Ds Tablet) 1 Tab Tb, 1 TAB PO BID for 5 Days, #10 TAB Prov:CARMELLA GARRISON [facility] 05/06/23 Pantoprazole Sodium Sesquihydr (Protonix) 40 Mg Tab, 40 MG PO DAILY for 20 Days, #20 TAB Prov:MARK FIGUEROA MD 04/20/23 Potassium Chloride (Klor-Con M20) 20 Meq Tab, 20 MEQ PO DAILY for 30 Days, #30 TAB 0 Refills Prov:TOREY GARRISON MD 08/13/19 Reported Medications Hctz (Hydrochlorothiazide) 25 Mg Tab, 25 MG PO DAILY, TAB 08/08/19 Information Source: Patient Mode of Arrival: Ambulatory Timing: Hours Duration: Since onset, Hours Prehospital treatment: None Quality: Aching Vomitus: Bilious Stool: Other (constipated) Severity: Moderate Recent: None Recent Hx of: Diabetes Pain Location: Epigastric Associated sign and symptoms: Nausea, Vomiting, Abdominal Pain Past Medical History PAST MEDICAL HISTORY: DM, HTN, Kidney Stones, MA Past Medical History (Other): Kidney cyst Surgical History: Cholecystectomy DIGITAL MEDIA SPECIALIST History: No Pertinent DIGITAL MEDIA SPECIALIST History, Other Family History Family History: Reviewed,noncontributory to illness, Unknown Social History Smoker: Cigarettes Alcohol: Rarely Drugs: Marijuana Lives In: Home Constitutional: denies: chills, diaphoresis, fatigue, fever, malaise, sweats, w eakness, others EENTM: denies: blurred vision, double vision, ear bleeding, ear discharge, ear drainage, ear pain, ear ringing, eye pain, eye redness, hearing loss, mouth pain, mouth swelling, nasal discharge, nose bleeding, nose congestion, nose pain, photophobia, tearing, throat pain, throat swelling, voice changes, others Respiratory: denies: cough, hemoptysis, orthopnea, SOB at rest, shortness of breath, SOB with excertion, stridor, wheezing, others Cardiovascular: denies: chest pain, dizzy spells, diaphoresis, Dyspnea on exertion, edema, irregular heart beat, left arm pain, lightheadedness, palpitations, PND, syncope, others Gastrointestinal: reports: abdominal pain, nausea, vomiting; denies: abdomen distended, blood streaked bowels, constipated, diarrhea, dysphagia, difficulty swallowing, hematemesis, melena, poor appetite, poor fluid intake, rectal bleed ing, rectal pain, others Genitourinary: reports: flank pain; denies: abnormal vagina bleeding, burning, dyspareunia, dysuria, frequency, hematuria, incontinence, pain, , vagina discharge, urgency, others Neurological: denies: dizziness, fainting, headache, left sided numbness, left sided weakness, numbness, paresthesia, pre-existing deficit, right sided numbness, right sided weakness, seizure, speech problems, tingling, tremors, weakness, others Musculoskeletal: denies: back pain, gout, joint pain, joint swelling, muscle pain, muscle stiffness, neck pain, others Integumetry: denies: bruises, change in color, change in hair/nails, dryness, laceration, lesions, lumps, rash, wounds, others Allergic/Immunocompromised: denies: Difficulty Healing, Frequent Infections, Hives, Itching, others Hematologic/Lymphatic: denies: anemia, blood clots, easy bleeding, easy bruising, swollen glands, others Endocrine: denies: excessive hunger, excessive sweating, excessive thirst, excessive urination, flushing, intolerance to cold, intolerance to heat, unexplained weight gain, unexplained weight loss, others Psychiatric: denies: anxiety, bipolar disorder, depression, hopeless, panic disorder, schizophrenia, sleepless, suicidal, others All Other Systems: Reviewed and Negative Physical Exam General Appearance: Moderate Distress, Obese HEENT: Normal ENT Inspection, PERRL/EOMI, Pharynx Normal, TMs Normal Neck: Full Range of Motion, Non-Tender, Normal, Normal Inspection Respiratory: Chest Non-Tender, Lungs Clear, No Accessory Muscle Use, No Respiratory Distress, Normal Breath Sounds Cardiovascular: No Edema, No JVD, No Murmur, No Gallop, Normal Peripheral Pulses, Regular Rate/Rhythm Breast Exam: Deferred Gastrointestinal: Diffuse, Epigastric, No Organomegaly, Non Tender, No Pul satile Mass, Normal Bowel Sounds, Soft, Tenderness Genitalia: Deferred Pelvic: Deferred Rectal: Deferred Extremities: No calf tenderness, Normal capillary refill, Normal inspection, Normal range of motion, Non-tender, No pedal edema Musculoskeletal : Apperance: Normal Neurologic: Alert, stitch bonding machine tender helper II-XII nml as Tested, No Motor Deficits, Normal Affect, Normal Mood, No Sensory Deficits Cerebellar Function: Normal Reflexes: Normal Skin: Dry, Normal Color, Warm Peripheral Pulses: 1+ carotid (R), 1+ carotid (L) Lymphatic: No Adenopathy Was a procedure done? Was a procedure done?: No GI differential Dx Differential Diagnosis: Gastritis/PUD, Gastroenteritis, Inflammatory BD, Pancreatitis, Dehydration, Electrolyte Imbalance X-Ray, Labs, Meds, VS Vital Signs Date Time Temp Pulse Resp B/P (MAP) Pulse Ox O2 Delivery O2 Flow Rate FiO2 07/10/24 18:09 98.2 78 20 184/90 (121) 96 98.2 07/10/24 17:14 97.7 90 14 147/91 (109) 99 97.7 07/10/24 17:14 Room Air* 0 21 Lab Test 07/10/24 17:15 07/10/24 16:10 Range/Units Urine Color Light-yellow Yellow Urine Clarity Clear Clear Urine pH 6.0 5.0-9.0 Urine Specific [place] 1.013 1.001-1.035 Urine Protein 1+ H Negative Urine Ketones Negative Negative Urine Blood 2+ H Negative /uL Urine Nitrite Negative Negative Urine Bilirubin Negative Negative Urine Urobilinogen Normal Negative mg/dL Urine Leukocyte Esterase 3+ Negative /uL Urine RBC 8 0 - 4 /hpf Urine Microscopic WBC 123 H 0-5 /HPF Urine Squamous Epithelial Cells Few <5 /hpf Urine Bacteria Few H None Seen /hpf Urine Glucose 4+ H Normal mg/dL White Blood Count 23.8 H 4.4-10.8 10^3/uL Red Blood Count 5.43 H 4.0-5.20 10^6/uL Hemoglobin 14.6 12.2-16.2 g/dL Hematocrit 46.1 H 36.0-46.0 % Mean Corpuscular Volume 84.9 80.0-100.0 fL Mean Corpuscular Hemoglobin 26.9 L 28.0-32.0 pg Mean Corpuscular Hemoglobin Concent 31.7 L 32.0-36.0 g/dL Red Cell Distribution Width 15.2 H 11.8-14.3 % Platelet Count 333 140-450 10^3/uL Mean Platelet Volume 8.1 6.9-10.8 fL Neutrophils (%) (Auto) 90.9 H 37.0-80.0 % Lymphocytes (%) (Auto) 5.1 L 10.0-50.0 % Monocytes (%) (Auto) 3.8 0.0-12.0 % Eosinophils (%) (Auto) 0.0 0.0-7.0 % Basophils (%) (Auto) 0.2 0.0-2.0 % Neutrophils # (Auto) 21.6 H 1.6-8.6 10 ^3/uL Lymphocytes # (Auto) 1.2 0.4-5.4 10 ^3/uL Monocytes # (Auto) 0.9 0-1.3 10 ^3/uL Eosinophils # (Auto) 0 0-0.8 10 ^3/uL Basophils # (Auto) 0 0-0.2 10 ^3/uL Nucleated Red Blood Cells 0.1 % Sodium Level 142 136-145 mmol/L Potassium Level 3.6 3.5-5.1 mmol/L Chloride Level 106 98-107 mmol/L Carbon Dioxide Level 26 20-31 mmol/L Anion Gap 10 5-15 Blood Urea Nitrogen 11 9-23 mg/dL Creatinine 1.43 H 0.550-1.02 mg/dL Glomerular Filtration Rate Calc 44 >90 mL/min BUN/Creatinine Ratio 7.7 L 10.0-20.0 Serum Glucose 118 H 74-106 mg/dL Calcium Level 9.6 8.7-10.4 mg/dL Magnesium Level 1.8 1.6-2.6 mg/dL Lipase 31 12-53 U/L Current Medications Medications (Trade) Dose Ordered Sig/Yarelis Route Start Time Stop Time Status Last Admin Sodium Chloride 1,000 ml @ 1,000 mls/hr Q1H ONCE IVB 07/10/24 16:00 07/10/24 16:59 DC 07/10/24 17:14 Ketorolac Tromethamine (Toradol Injection) 30 mg ONCE ONCE IV 07/10/24 18:15 07/10/24 18:16 DC 07/10/24 18:23 X-Ray, Labs, Meds, VS Comment Course in the emergency department patient came in complaining of abdominal pain diffuse and vomiting patient has a history of kidney stones and diabetes and [place] [address] 90.9% neutrophils and normal H&H CMP negative Magnesium 1.[address] abdomen and pelvis pending Chest x-ray normal dr carrington to follow Time of 1ST Reevaluation: 16:00 Reevaluation 1ST: Unchanged Time of 2ND Reevaluation: 19:12 Reevaluation 2ND: Improved Patient Education/Counseling: Diagnosis, Treatment, Prognosis, Need For Follow Up Family Education/Counseling: Diagnosis, Treatment, Prognosis, Need For Follow Up, No Family Present Assigned to Dr. DR CARRINGTON Change of Shift?: Yes Departure 1 Departure Time of Disposition: 19:12 Impression: Primary Impression: Gastroenteritis Additional Impressions: Cannabinoid hyperemesis syndrome Nonspecific abdominal pain Disposition: 30 STILL A PATIENT Condition: Fair Discharged With: Self Critical Care Note Critical Care Time?: No Stability Stability form required: No Heart Score Heart Score: Heart Score Response (Comments) Value History N/A 0 EKG N/A 0 Age 45-64 1 Risk Factors 1 or 2 risk factors 1 Troponin N/A 0 Total 2 I personally scribed for GEO COWART MD ([email or web address]) on 07/10/24 at 16:49. Electronically submitted by Jose Thomas ([email or web address]). GEO COWART MD July 10, 2024 16:49
[2024-07-10] MEDS: METOCLOPRAMIDE HCL 5MG/ml INJ 2ml VIAL IV ONE (17:10)
[2024-07-10] MEDS: SODIUM CHLORIDE 0.9% 1,000 ML IVB ONE (17:14)
[2024-07-10 17:40] LABS: Urine Bacteria FEW /hpf (None Seen); Urine Blood 2+ /uL (Negative); Urine Clarity Clear (Clear); Urine Color Light-Yellow (Yellow); Urine Protein, UAD 1+ (Negative); Urine Specific Gravity 1.013 (1.001-1.035); Urine Squamous Epithelial Cell FEW /hpf (<5); Urine Urobilinogen Normal (Negative); Urine WBC 123 /HPF (0-5)
--- NOTE | 2024-07-10 18:19 | DVH ---
CHEST RADIOGRAPH Indication: Diffuse abdominal pain Technique: Frontal and lateral view of the chest was obtained Comparison: None FINDINGS: Lines and Tubes: None Lungs: Clear Pleura: No effusion. No pneumothorax. Cardiomediastinal contours: Unremarkable Bones: Unremarkable IMPRESSION: No evidence of acute disease.
[2024-07-10] MEDS: KETOROLAC TROMETH 30 MG/ML 1ML VIAL IV ONE (18:23)
[2024-07-10] MEDS: IOHEXOL 300 MG/ML 100ML BOTTLE IJ ONE (20:51)
[2024-07-10] MEDS: SODIUM CHLORIDE 0.9% 1,000 ML IV ONE ×2 (21:45→22:00)
[2024-07-10] MEDS: VANCOMYCIN 1GM/200ML PM 200 ML IV ONE (21:46)
--- NOTE | 2024-07-10 21:56 | DVH ---
Exam: CT CT AB PEL WITH IV CON ONLY History: Reason for exam abdominal pain high white count and vomiting Comparison Study: CT CT AB PEL WITH IV CON ONLY on DOS: 04/20/23, CT AB PEL WITH IV CON ONLY on DOS: Contrast: Type of contrast: Omni 300: 80 mL Contrast injected:80 mL Contrast wasted: 0 TECHNIQUE: A digital hearing officer image was obtained. During the uneventful, intravenous administration of c ontrast material, multislice data acquisition was obtained through the abdomen and pelvis. The data s et was subsequently reconstructed into axial images. Images were reviewed on a work station using a c ombination of axial and multiplanar using a variety of window levels and settings. Radiation Dose Information: CT Dose: CTDI volume is 27.42 mGy. Dose-length product is 1439.03 mGy*cm FINDINGS: Lung Bases: No acute or significant lung base finding. Normal heart size. No pleural or pericardial effusion. Liver: The liver is normal in size. No focal lesions. Normal hepatic vascular enhancement. Gallbladder and Biliary Tree: Unremarkable Spleen: Unremarkable Pancreas: The pancreas is normal in appearance without focal lesions or abnormal enhancement. Adrenal Glands: Unremarkable Kidneys: There is a 7-8 mm calculus in the proximal right ureter with hydronephrosis of the right kid nadine Bladder: Unremarkable Bowel: The stomach is grossly normal in appearance. Small bowel and colon are normal in caliber and d istribution. The appendix is not visualized; however, no secondary findings of acute appendicitis fredis ntified. Ascites: Absent Lymphadenopathy: No mesenteric, retroperitoneal or periportal lymphadenopathy. Abdominal Wall and Mesentery: Unremarkable. Vasculature: The visualized abdominal aorta is normal in size and caliber. Abdominal and pelvic vess els demonstrate normal enhancement. Pelvic Organs: Unremarkable Musculoskeletal: No aggressive focal bony lesions, acute fractures or dislocation. Soft tissues: Unremarkable. IMPRESSION: 1. 7 mm calculus in the proximal right ureter with right hydronephrosis. 2. All CT scans at this medical facility are performed using dose modulation techniques as appropriat e to a performed exam including the following: Automated exposure control was utilized; adjustment of the MA and/or KV according to patient size; and use of iterative reconstruction technique.
[2024-07-10] MEDS: ONDANSETRON HCL 4 MG/2 ML VIAL IV ONE (22:02)
[2024-07-10] MEDS: MORPHINE SULFATE 4 MG/ML SYR/VIAL IV ONE (22:03)
--- NOTE | 2024-07-10 22:12 | ED.PDOC ---
Departure 1 Departure Time of Disposition: 22:11 (Patient presented with abdominal pain that was concerning for possible appendicits, gastritis, cholecystitis, colitis, gastroenteritis, sbo, or orther possible surgical emergency. Data: 1. I ordered and reviewed the result of at least 3 labs including a CBC, BMP, and Urinalysis. 2. I independently interpreted the following tests: CT Abdoment and Pelvis is concerning for infected kidney stone .Risk:This patient has a high risk of morbidity due to further diagnostic testing or treatment and may suffer from an acute abdominal process disorder. Workup reveals right ureteral colic and infection and patient should be admitted for further workup. and possible expert consultation. ) Impression: Primary Impression: Renal colic on right side Additional Impressions: Gastroenteritis Nonspecific abdominal pain Cannabinoid hyperemesis syndrome Disposition: 09 ADMITTED INPATIENT Admit to: Med Surg Condition: Guarded Discharged With: Self Critical Care Note Critical Care Time?: Yes Critical care comment: Intractable abdominal pain Authorized and Performed by: Bridget Barlow MD Total critical care time: Approximately 38 minutes Due to a high probability of clinically significant, life threatening deterioration, the patient required my highest level of preparedness to intervene emergently and I personally spent this critical care time directly and personally managing the patient. This critical care time included obtaining a history; examining the patient; pulse oximetry; ordering and review of studies; arranging urgent treatment with development of a management plan; evaluation of patient's response to treatment; frequent reassessment; and, discussions with other providers. This critical care time was performed to assess and manage the high probability of imminent, life-threatening deterioration that could result in multi-organ failure. It was exclusive of separately billable procedures and treating other patients and teaching time. Please see my other sections and the rest of the note for further information on patient assessment and treatment. BRIDGET BARLOW MD July 10, 2024 22:12
[2024-07-10 23:05] VITALS: O2SAT 98
[2024-07-10] MEDS ORDERED: NITROGLYCERIN 0.4 MG SL TAB SL PRN (23:15)
[2024-07-10] MEDS ORDERED: ONDANSETRON HCL 4 MG/2 ML VIAL IV PRN (23:15)
[2024-07-10] MEDS ORDERED: DOCUSATE SOD 100 MG CAP PO PRN (23:15)
[2024-07-10] MEDS ORDERED: MORPHINE SULFATE INJ 2 MG/ml SYRG IV PRN ×2 (23:15)
[2024-07-10] MEDS ORDERED: DEXTROSE (50%) 50ML SYRG IV PRN (23:15)
[2024-07-10] MEDS ORDERED: VANCOMYCIN PER PHARMACY 0 MG IV SCH (23:15)
--- NOTE | 2024-07-10 23:15 | DVHHP2 ---
History of Present Illness Reason for Visit: Gastroenteritis History of Present Illness The patient is a 49-year-old female with past medical history of DM, kidney stones, OH, kidney cysts, and hypertension who presented to [facility] ED with complaint of abdominal pain. Patient reports she has been experiencing upper abdominal pain rating 7/10 numeric scale, associated nausea, vomiting, right flank pain, getting worse that prompted this visit. Patient was seen and evaluated in the ED, laboratory data shows elevated WBC 23.8, platelets 333, sodium 142, potassium 3.6, BUN 11, creatinine 1.43, glucose 118, lipase 31, urinalysis positive for urinary tract infection. Abdomen/pelvis CT revealing 7 mm calculus in the proximal right ureter with right hydronephrosis. Patient was started on IV antibiotic regimen vancomycin, please see medication orders section in the computer. On my assessment, patient denied chest pain, no headache, no dizziness, no shortness of breath, no abdominal pain, no nausea, no vomiting at this moment, no fever, no chills. Past Medical History DM, HTN, Kidney Stones, OH, Kidney cyst Past Surgical History Cholecystectomy Family History Reviewed, noncontributory to the management of this case. Past Social History The patient lives at home, smokes cigarettes, drinks alcohol rarely, uses marijuana. Review of Systems Constitutional: Yes: Weakness; No: Fever, Chills, Sweats, Malaise, Other Eyes: No: Pain, Vision change, Conjunctivae inflammation, Eyelid inflammation, Other, Redness ENT: No: Ear pain, Ear discharge, Nose pain, Nose discharge, Nose congestion, Mouth pain, Mouth swelling, Throat pain, Throat swelling, Other Respiratory: No: Cough, Dry, Shortness of breath, SOB with excertion, Wheezing, Hemoptysis, Pleuritic Pain, Sputum, Wheezing, Other Cardiovascular: No: Chest Pain, Palpitations, Orthopnea, Paroxysmal Noc. Dyspnea, Edema, Lt Headedness, Other Gastrointestinal: Nausea, Vomiting, Abdominal Pain; No: Diarrhea, Constipation, Melena, Hematochezia, Other Genitourinary: No Dysuria, No Frequency, No Incontinence, No Hematuria, No Retention; Other (Right flank pain) Musculoskeletal: No: other, neck pain, shoulder pain, arm pain, back pain, hand pain, leg pain, foot pain Skin: No: Rash, Lesions, Jaundice, Bruising, Other Neurological: No: Weakness, Numbness, Incoordination, Change in speech, Confusion, Seizures, Other Allergies: Coded Allergies: Amlodipine (Verified Allergy, Severe, 10/08/23) Gabapentin (Verified Allergy, Severe, 10/08/23) Tramadol (Verified Allergy, Severe, 10/08/23) Exam Vital Signs Vital Signs Date Time Temp Pulse Resp B/P (MAP) Pulse Ox O2 Delivery O2 Flow Rate FiO2 07/10/24 22:59 90 16 162/80 07/10/24 20:22 99.2 99 99.2 07/10/24 17:14 Room Air* 0 21 General Appearance: Alert, Oriented X3, Cooperative, No acute distress HEENT: Atraumatic, PERRLA, EOMI, Mucous membr. moist/pink Respiratory: Clear to auscultation, Normal air movement Cardiovascular: Regular rate, Normal S1, Normal S2, No murmurs Abdominal: Normal bowel sounds, Soft, No tenderness, No hepatospenomegaly, No masses Extremities: No clubbing, No cyanosis, No edema, Normal pulses, No tenderness/swelling Skin: No rashes, No breakdown, No significant lesion Neuro: Normal speech, Normal tone, Sensation intact, Cranial nerves 3-12 NL, Reflexes 2+, Other (Generalized weakness) Psych/Mental Status: Mental status NL, Mood NL Labs/Xrays Labs Test 07/10/24 17:15 07/10/24 16:10 Range/Units Urine Color Light-yellow Yellow Urine Clarity Clear Clear Urine pH 6.0 5.0-9.0 Urine Specific [place] 1.013 1.001-1.035 Urine Protein 1+ H Negative Urine Ketones Negative Negative Urine Blood 2+ H Negative /uL Urine Nitrite Negative Negative Urine Bilirubin Negative Negative Urine Urobilinogen Normal Negative mg/dL Urine Leukocyte Esterase 3+ Negative /uL Urine RBC 8 0 - 4 /hpf Urine Microscopic WBC 123 H 0-5 /HPF Urine Squamous Epithelial Cells Few <5 /hpf Urine Bacteria Few H None Seen /hpf Urine Glucose 4+ H Normal mg/dL White Blood Count 23.8 H 4.4-10.8 10^3/uL Red Blood Count 5.43 H 4.0-5.20 10^6/uL Hemoglobin 14.6 12.2-16.2 g/dL Hematocrit 46.1 H 36.0-46.0 % Mean Corpuscular Volume 84.9 80.0-100.0 fL Mean Corpuscular Hemoglobin 26.9 L 28.0-32.0 pg Mean Corpuscular Hemoglobin Concent 31.7 L 32.0-36.0 g/dL Red Cell Distribution Width 15.2 H 11.8-14.3 % Platelet Count 333 140-450 10^3/uL Mean Platelet Volume 8.1 6.9-10.8 fL Neutrophils (%) (Auto) 90.9 H 37.0-80.0 % Lymphocytes (%) (Auto) 5.1 L 10.0-50.0 % Monocytes (%) (Auto) 3.8 0.0-12.0 % Eosinophils (%) (Auto) 0.0 0.0-7.0 % Basophils (%) (Auto) 0.2 0.0-2.0 % Neutrophils # (Auto) 21.6 H 1.6-8.6 10 ^3/uL Lymphocytes # (Auto) 1.2 0.4-5.4 10 ^3/uL Monocytes # (Auto) 0.9 0-1.3 10 ^3/uL Eosinophils # (Auto) 0 0-0.8 10 ^3/uL Basophils # (Auto) 0 0-0.2 10 ^3/uL Nucleated Red Blood Cells 0.1 % Sodium Level 142 136-145 mmol/L Potassium Level 3.6 3.5-5.1 mmol/L Chloride Level 106 98-107 mmol/L Carbon Dioxide Level 26 20-31 mmol/L Anion Gap 10 5-15 Blood Urea Nitrogen 11 9-23 mg/dL Creatinine 1.43 H 0.550-1.02 mg/dL Glomerular Filtration Rate Calc 44 >90 mL/min BUN/Creatinine Ratio 7.7 L 10.0-20.0 Serum Glucose 118 H 74-106 mg/dL Calcium Level 9.6 8.7-10.4 mg/dL Magnesium Level 1.8 1.6-2.6 mg/dL Lipase 31 12-53 U/L PATIENT: GEO ACCT: [id number] UNIT: [id number] : 1975 LOC: ER ROOM / BED: / AGE / SEX: 49 / F ADM STATUS: REG ER SERVICE 11 ORDERING PHYSICIAN: GEO COWART MD PROCEDURE(s): ABPLIV - CT AB PEL WITH IV CON ONLY REASON: Reason for exam abdominal pain high white count and vomiting ORDER NUMBER(s): [id number], ACCESSION NUMBER(s): [id number] Exam: CT CT AB PEL WITH IV CON ONLY History: Reason for exam abdominal pain high white count and vomiting Comparison Study: CT CT AB PEL WITH IV CON ONLY on DOS: 04/20/23, CT AB PEL WITH IV CON ONLY on DOS: 06/21/21 Contrast: Type of contrast: Omni 300: 80 mL Contrast injected:80 mL Contrast wasted: 0 TECHNIQUE: A digital sliver former image was obtained. During the uneventful, intravenous administration of contrast material, multislice data acquisition was obtained through the abdomen and pelvis. The data set was subsequently reconstructed into axial images. Images were reviewed on a work station using a combination of axial and multiplanar using a variety of window levels and settings. Radiation Dose Information: CT Dose: CTDI volume is 27.42 mGy. Dose-length product is 1439.03 mGy*cm FINDINGS: Lung Bases: No acute or significant lung base finding. Normal heart size. No pleural or pericardial effusion. Liver: The liver is normal in size. No focal lesions. Normal hepatic vascular enhancement. Gallbladder and Biliary Tree: Unremarkable Spleen: Unremarkable Pancreas: The pancreas is normal in appearance without focal lesions or abnormal enhancement. Adrenal Glands: Unremarkable Kidneys: There is a 7-8 mm calculus in the proximal right ureter with hydronephrosis of the right kidney Bladder: Unremarkable Bowel: The stomach is grossly normal in appearance. Small bowel and colon are normal in caliber and distribution. The appendix is not visualized; however, no secondary findings of acute appendicitis identified. Ascites: Absent Lymphadenopathy: No mesenteric, retroperitoneal or periportal lymphadenopathy. Abdominal Wall and Mesentery: Unremarkable. Vasculature: The visualized abdominal aorta is normal in size and caliber. Abdominal and pelvic vessels demonstrate normal enhancement. Pelvic Organs: Unremarkable Musculoskeletal: No aggressive focal bony lesions, acute fractures or dislocation. Soft tissues: Unremarkable. IMPRESSION: 1. 7 mm calculus in the proximal right ureter with right hydronephrosis. ORDERING PHYSICIAN: GEO COWART MD PROCEDURE(s): CXR2 - CHEST TWO VIEWS ROUTINE REASON: Diffuse abdominal pain ORDER NUMBER(s): [id number], ACCESSION NUMBER(s): [id number] CHEST RADIOGRAPH Indication: Diffuse abdominal pain Technique: Frontal and lateral view of the chest was obtained Comparison: None FINDINGS: Lines and Tubes: None Lungs: Clear Pleura: No effusion. No pneumothorax. Cardiomediastinal contours: Unremarkable Bones: Unremarkable IMPRESSION: No evidence of acute disease. Assessment/Plan Assessment/Plan Gastroenteritis Hydronephrosis Leukocytosis, unspecified Urinary tract infection Nonspecific abdominal pain Kidney stones Generalized weakness Plan 1. Admit to med surge unit 2. Breathing treatment 3. Pain control management 4. IV antibiotic management 5. Management of fluids and electrolytes 6. Consultation for hospitalist 7. Diagnostic test abdomen/pelvis CT 8. DVT prophylaxis-on SCDs 9. Repeat labs CBC, CMP in a.m. 10. Home medication reviewed and reconciled 11. Continue with current medical management 12. Treatment plan discussed with patient and RN. Patient verbalized understanding. Plan discussed with: Patient, Other (RN) My Orders Orders - RAND BRYAN DNP Procedure Category Date Status Time Urine Bacterial JUSTIN 07/10/24 Transmitted Culture 23:05 Ceftriaxone Ivpb PHA 07/11/24 Transmitted Rocephin 09:00 Consistent DIET 07/11/24 Transmitted Carb(Ccho)Diabetes Breakfast Hydralazine Injection PHA 07/10/24 Transmitted (Apresoline Inject 23:15 Pantoprazole PHA 07/10/24 Transmitted (Protonix) 23:15 Pantoprazole PHA 07/11/24 Transmitted (Protonix) 10:00 Hydrochlorothiazide PHA 07/11/24 Transmitted Tablet (Hydrochlorot 10:00 Vancomycin Per PHA 07/10/24 Transmitted Pharmacy 23:15 Glucose Blood PHA 07/11/24 Transmitted (Accu-Chek Comfort 07:00 Mild Sliding Scale PHA 07/11/24 Transmitted 07:00 Dextrose 50% Syringe PHA 07/10/24 Transmitted 23:15 Admit ADMIT 07/10/24 Transmitted 23:05 Allergies LILY 07/10/24 Transmitted 23:05 Code Status CODE 07/10/24 Transmitted 23:05 Sodium Chloride Lock PHA 07/11/24 Transmitted (Saline Lock Ns) 06:00 Oxygen Per Hour RT 07/10/24 Transmitted 23:05 Hydrocodone-Acet PHA 07/10/24 Transmitted 5/325mg Tab (Whiteside 23:15 Ondansetron Hcl PHA 07/10/24 Transmitted (Zofran) 23:15 Docusate Sodium PHA 07/10/24 Transmitted Capsule (Colace 23:15 Complete Blood Count LAB 07/11/24 Verified 04:00 Comprehensive LAB 07/11/24 Verified Metabolic Panel 04:00 Condition: Serious [facility] 07/10/24 Transmitted 23:05 Acetaminophen Tablet [facility] 07/10/24 Transmitted (Tylenol Tablet) 23:15 Clear Liq Diet DIET 07/11/24 Transmitted Breakfast Bedrest With Bathroom [facility] 07/10/24 Transmitted Privileg 23:05 Morphine Sulfate [facility] 07/10/24 Transmitted Injection 23:15 Sequential [facility] 07/10/24 Transmitted Compression Device Nitroglycerin [facility] 07/10/24 Transmitted Sublingual (Ntrostat 23:15 Morphine Sulfate PHA 07/10/24 Transmitted Injection 23:15 Notify Md Of Changes [facility] 07/10/24 Transmitted From Base 23:05 Emergency Dysrhythmia [facility] 07/10/24 Transmitted Protocol 23:05 Oxygen By Nasal 07/10/24 Transmitted Cannula 23:05 Problem List: (1) Gastroenteritis (2) Leukocytosis, unspecified (3) Urinary tract infection (4) Nonspecific abdominal pain (5) Hydronephrosis (6) Kidney stones (7) Generalized weakness Date of Service: July 10, 2024 Billing Provider: RAND BRYAN DNP Common Visit Codes: [id number] INP/OBS CARE (HIGH) RAND BRYAN DNP July 10, 2024 23:15
[2024-07-11] VITALS (8 sets, daily range): BP systolic 107–163; BP diastolic 61–102; PULSE 94–119; RESP 14–20; TEMP 97–101.8; O2SAT 94–98
[2024-07-11] MEDS: VANCOMYCIN 1GM/200ML PM 200 ML IV ONE (00:40)
[2024-07-11] MEDS: PANTOPRAZOLE 40 MG/10 ML VIAL INJ IV ONE (00:41)
[2024-07-11] MEDS: hydrALAZINE HCL 20 MG/ML VL IV PRN (01:52)
[2024-07-11] MEDS: CEFEPIME 2GM/50ML NS 50 ML IV ONE (02:34)
[2024-07-11] MEDS: ACETAMINOPHEN 325 MG TAB PO PRN (04:35)
[2024-07-11] MEDS: ACCU-CHEK COMFORT CURVE STRIP VI SCH (06:30)
[2024-07-11] MEDS: SODIUM CHLOR 0.9% PF (SALINE LOCK) 10ML VIAL/SYR IV SCH (06:30)
[2024-07-11] MEDS: InsuLIN REG 1unit/0.01ml Soln (100units/ml) SC SCH (06:35)
[2024-07-11] MEDS: metroNIDAZOLE 500MG/100ML 100 ML IV SCH (06:39)
[2024-07-11] MEDS ORDERED: cefTRIAXone 1GM/50ML D5W 50 ML IV SCH (09:00)
[2024-07-11 09:07] LABS: Basophils # (auto) 0 10 ^3/uL (0-0.2); Basophils % (auto) 0.1 % (0.0-2.0); Eosinophils # (auto) 0 10 ^3/uL (0-0.8); Eosinophils % (auto) 0.1 % (0.0-7.0)
[2024-07-11 09:10] LABS: Hematocrit 39.7 % (36.0-46.0); Hemoglobin 13.1 g/dL (12.2-16.2); Lymphocytes # (auto) 1.5 10 ^3/uL (0.4-5.4); Lymphocytes % (auto) 7.1 % (10.0-50.0); Mean Corpuscular Hemoglobin 27.4 pg (28.0-32.0); Mean Corpuscular Volume 82.9 fL (80.0-100.0); Monocytes # (auto) 0.9 10 ^3/uL (0-1.3); Monocytes % (auto) 4.3 % (0.0-12.0); Neutrophils % (auto) 88.4 % (37.0-80.0); Platelet Count (auto) 262 10^3/uL (140-450); Red Blood Cells 4.79 10^6/uL (4.0-5.20); White Blood Cell 21.5 10^3/uL (4.4-10.8)
[2024-07-11 09:25] LABS: Alanine Aminotransferase 24 U/L (7-40); Albumin 3.5 g/dL (3.2-4.8); Anion Gap 9 (5-15); Aspartate Aminotransferase 25 U/L (13-40); BUN/Creatinine Ratio 7.9 (10.0-20.0); Blood Urea Nitrogen 11 mg/dL (9-23); Carbon Dioxide 23 mmol/L (20-31); Glucose 98 mg/dL (74-106); Sodium 143 mmol/L (136-145)
[2024-07-11 09:26] LABS: Bilirubin, Total 0.6 mg/dL (0.2-1.0)
[2024-07-11 09:28] LABS: Alkaline Phosphatase 125 U/L (46-116); Chloride 111 mmol/L (98-107); Potassium 3.3 mmol/L (3.5-5.1)
--- NOTE | 2024-07-11 09:43 | DVHINCON2 ---
Date of service: Jul 11, 2024 Referring Physician Hospitalist Reason for Consultation ureteral stone History of Present Illness History Source: Patient, RN Notes, MD Notes, Old Records Exam Limitations: No limitations HPI 49F presents to the ER w/ prior MHx of HTN, DM, OR, Kidney Stones, Kidney Cyst;SHx of Cholecystectomy and the c/c of ABD pain. Pt reports on having upper ABD pain which started this morning and is associated w/ N/V as well as right flank pain. Pt notes that she had a UTI which subsided last week.Social Hx of tobacco use, rare alcohol use, and marijuana use. Denies chills, fever, N/V/D, SOB, CP. Denies any other associated symptom's, modifiers, or recent injuries or sick contact at this time. CT shows a 7 mm stone in the right proximal ureter with hydronephrosis. She is tachycardic, febrile and has elevated WBC. MEWS RR: 1 HR: 2 SBP: 0 TEMP: 2 LOC: 0 = 5 Meets SIRS criteria Home Meds Active Scripts Tamsulosin Hcl (Tamsulosin Hcl) 0.4 Mg Cap, 1 CAP PO DAILY, #30 CAP 5 Refills Prov:GABO BUNDY DO 10/08/23 Enalapril Maleate (Enalapril Maleate) 20 Mg Tab, 1 TAB PO DAILY, #30 TAB 1 Refill Prov:GABO BUNDY DO 10/08/23 Hydrocodone-Acetaminophen (Hydrocodone Bitartrate/AC 5-325 mg) 1 Tab Tab, 1 TAB PO Q8HP PRN for 7 Days, #21 TAB Prov:MARLEN DEWEY MD 06/30/23 Ciprofloxacin Hcl (Cipro) 500 Mg Tab, 1 TAB PO BID, #14 TAB Prov:MARLEN DEWEY MD 06/30/23 Tramadol Hcl (Tramadol Hcl) 50 Mg Tab, 50 MG PO Q8HP PRN for 5 Days, #15 TAB Prov:MARLEN DEWEY MD 06/30/23 Tamsulosin Hcl (Tamsulosin Hcl) 0.4 Mg Cap, 1 CAP PO DAILY, #30 CAP 5 Refills Prov:CARMELLA GARRISON PAC 05/06/23 Hydrocodone-Acetaminophen (Hydrocodone Bitartrate/AC 10-325 mg) 1 Tab Tab, 1 TAB PO Q6HPRN PRN, #15 TAB Prov:CARMELLA GARRISON PAC 05/06/23 Sulfamethoxazole W/Trimethopri (Bactrim Ds Tablet) 1 Tab Tb, 1 TAB PO BID for 5 Days, #10 TAB Prov:CARMELLA GARRISON PAC 05/06/23 Pantoprazole Sodium Sesquihydr (Protonix) 40 Mg Tab, 40 MG PO DAILY for 20 Days, #20 TAB Prov:MARK FIGUEROA MD 04/20/23 Potassium Chloride (Klor-Con M20) 20 Meq Tab, 20 MEQ PO DAILY for 30 Days, #30 TAB 0 Refills Prov:TOREY GARRISON MD 08/13/19 Reported Medications Hctz (Hydrochlorothiazide) 25 Mg Tab, 25 MG PO DAILY, TAB 08/08/19 Past Medical History Renal/: UTI, Other (kidney stone) Endocrine: NIDDM Patient Family History: Diabetes mellitus G8 MOTHER G8 FATHER Smoker: Positive Alocohol: Occassional Drugs: Marijuana Domestic Violence: Neg Review of Systems Constitutional: Fever Gastrointestinal: Abdominal Pain H&P Exam Vital Signs Vital Signs Date Time Temp Pulse Resp B/P (MAP) Pulse Ox O2 Delivery O2 Flow Rate FiO2 07/11/24 09:04 97.0 108 14 107/64 (78) 96 97.0 07/11/24 00:59 Room Air* 0 21 General Appeara: Well developed, Well nourished, Normal Appearance, Obese Neuro/Mental St: Alert, Oriented Appearance: Appropriate appearance, Appropriate insight Skin Exam: Normal inspection, Normal color, Warm/dry Labs/Xrays [place] [id number] Ph: [phone] DIAGNOSTIC IMAGING Diagnostic Imaging Report : [id number] Signed PATIENT: GEO ACCT: [id number] UNIT: [id number] : 1975 LOC: ER ROOM / BED: / AGE / SEX: 49 / F ADM STATUS: REG ER SERVICE 11 ORDERING PHYSICIAN: GEO COWART MD PROCEDURE(s): ABPLIV - CT AB PEL WITH IV CON ONLY REASON: Reason for exam abdominal pain high white count and vomiting ORDER NUMBER(s): [id number], ACCESSION NUMBER(s): [id number] Exam: CT CT AB PEL WITH IV CON ONLY History: Reason for exam abdominal pain high white count and vomiting Comparison Study: CT CT AB PEL WITH IV CON ONLY on DOS: 04/20/23, CT AB PEL WITH IV CON ONLY on DOS: 06/21/21 Contrast: Type of contrast: Omni 300: 80 mL Contrast injected:80 mL Contrast wasted: 0 TECHNIQUE: A digital machine tool dresser image was obtained. During the uneventful, intravenous administration of contrast material, multislice data acquisition was obtained through the abdomen and pelvis. The data set was subsequently reconstructed into axial images. Images were reviewed on a work station using a combination of axial and multiplanar using a variety of window levels and settings. Radiation Dose Information: CT Dose: CTDI volume is 27.42 mGy. Dose-length product is 1439.03 mGy*cm FINDINGS: Lung Bases: No acute or significant lung base finding. Normal heart size. No pleural or pericardial effusion. Liver: The liver is normal in size. No focal lesions. Normal hepatic vascular enhancement. Gallbladder and Biliary Tree: Unremarkable Spleen: Unremarkable Pancreas: The pancreas is normal in appearance without focal lesions or abnormal enhancement. Adrenal Glands: Unremarkable Kidneys: There is a 7-8 mm calculus in the proximal right ureter with hydronephrosis of the right kidney Bladder: Unremarkable Bowel: The stomach is grossly normal in appearance. Small bowel and colon are normal in caliber and distribution. The appendix is not visualized; however, no secondary findings of acute appendicitis identified. Ascites: Absent Lymphadenopathy: No mesenteric, retroperitoneal or periportal lymphadenopathy. Abdominal Wall and Mesentery: Unremarkable. Vasculature: The visualized abdominal aorta is normal in size and caliber. Abdominal and pelvic vessels demonstrate normal enhancement. Pelvic Organs: Unremarkable Musculoskeletal: No aggressive focal bony lesions, acute fractures or dislocation. Soft tissues: Unremarkable. IMPRESSION: 1. 7 mm calculus in the proximal right ureter with right hydronephrosis. 2. All CT scans at this medical facility are performed using dose modulation techniques as appropriate to a performed exam including the following: Automated exposure control was utilized; adjustment of the MA and/or KV according to patient size; and use of iterative reconstruction technique. ATED BY: GELA MULTANI Jr., DO DICTATED DATE/TIME: 07/10/242153 SIGNED BY: GELA MULTANI Jr., DO SIGNED DATE/TIME: 07/10/242153 CC: Labs Test 07/11/24 08:41 07/11/24 06:32 07/10/24 17:15 07/10/24 16:10 Range/Units White Blood Count 21.5 H 4.4-10.8 10^3/uL Red Blood Count 4.79 4.0-5.20 10^6/uL Hemoglobin 13.1 12.2-16.2 g/dL Hematocrit 39.7 # 36.0-46.0 % Mean Corpuscular Volume 82.9 80.0-100.0 fL Mean Corpuscular Hemoglobin 27.4 L 28.0-32.0 pg Mean Corpuscular Hemoglobin Concent 33.0 32.0-36.0 g/dL Red Cell Distribution Width 15.0 H 11.8-14.3 % Platelet Count 262 140-450 10^3/uL Mean Platelet Volume 8.4 6.9-10.8 fL Neutrophils (%) (Auto) 88.4 H 37.0-80.0 % Lymphocytes (%) (Auto) 7.1 L 10.0-50.0 % Monocytes (%) (Auto) 4.3 0.0-12.0 % Eosinophils (%) (Auto) 0.1 0.0-7.0 % Basophils (%) (Auto) 0.1 0.0-2.0 % Neutrophils # (Auto) 19.0 H 1.6-8.6 10 ^3/uL Lymphocytes # (Auto) 1.5 0.4-5.4 10 ^3/uL Monocytes # (Auto) 0.9 0-1.3 10 ^3/uL Eosinophils # (Auto) 0 0-0.8 10 ^3/uL Basophils # (Auto) 0 0-0.2 10 ^3/uL Nucleated Red Blood Cells 0.0 % POC Glucose 109 H 70-106 mg/dl Urine Color Light-yellow Yellow Urine Clarity Clear Clear Urine pH 6.0 5.0-9.0 Urine Specific [place] 1.013 1.001-1.035 Urine Protein 1+ H Negative Urine Ketones Negative Negative Urine Blood 2+ H Negative /uL Urine Nitrite Negative Negative Urine Bilirubin Negative Negative Urine Urobilinogen Normal Negative mg/dL Urine Leukocyte Esterase 3+ Negative /uL Urine RBC 8 0 - 4 /hpf Urine Microscopic WBC 123 H 0-5 /HPF Urine Squamous Epithelial Cells Few <5 /hpf Urine Bacteria Few H None Seen /hpf Urine Glucose 4+ H Normal mg/dL Magnesium Level 1.8 1.6-2.6 mg/dL Lipase 31 12-53 U/L Assessment/Plan Problem List: (1) Hydronephrosis concurrent with and due to calculi of kidney and ureter (2) Sepsis (3) UTI (urinary tract infection) (4) Kidney stones Plan 49 yo female with obstructive right proximal stone with signs of sepsis. Pt needs urgent decompression of right collecting system with nephrostomy placement. Eventually (after resolution of sepsis) pt will require right URSLL and stent placement TBA outpt vs inpt. Recommend pro placement to promote clearance of UTI/pyelonephritis. broad spectrum abx pending culture results. continue with cefepime. vanco d/c aggressive fluids pain meds prn medical management per primary team. Plan discussed with: Patient, Other KEATON FAJARDO NP Jul 11, 2024 09:43
[2024-07-11] MEDS ORDERED: MORPHINE SULFATE 4 MG/ML SYR/VIAL IV PRN (09:45)
[2024-07-11 09:47] LABS: INR 1.21 (0.9-1.15); Prothrombin Time 12.6 sec (9.3-11.8)
[2024-07-11] MEDS: PANTOPRAZOLE 40 MG/10 ML VIAL INJ IV SCH (10:00)
[2024-07-11] MEDS: HYDROcodone-ACET 5/325MG TAB PO PRN (11:12)
[2024-07-11] MEDS: hydroCHLOROthiazide 25 MG TAB PO SCH (11:12)
[2024-07-11] MEDS: SODIUM CHLORIDE 0.9% 1,000 ML IV SCH (12:00)
[2024-07-11] MEDS: POTASSIUM CHL 20 Meq TABLET PO ONE (14:00)
[2024-07-11] MEDS: CEFEPIME 2GM/50ML NS 50 ML IV SCH (14:00)
--- NOTE | 2024-07-11 17:36 | DVHPN2 ---
Subjective in bed resting Reviewed: H&P, Labs Changes from previous H/P or p: No Changes Eyes: No Pain, No Vision change, No Conjunctivae inflammation, No Eyelid inflammation, No Other, No Redness ENT: No Ear pain, No Ear discharge, No Nose pain, No Nose discharge, No Nose congestion, No Mouth pain, No Mouth swelling, No Throat pain, No Throat swelling, No Other Cardiovascular: No Chest Pain, No Palpitations, No Orthopnea, No Paroxysmal Noc. Dyspnea, No Edema, No Lt Headedness, No Other Respiratory: No Cough, No Dry, No Shortness of breath, No SOB with excertion, No Wheezing, No Hemoptysis, No Pleuritic Pain, No Sputum, No Other Gastrointestinal: Nausea, Vomiting, Abdominal Pain; No Diarrhea, No Constipation, No Melena, No Hematochezia, No Other Genitourinary: No Dysuria, No Frequency, No Incontinence, No Hematuria, No Retention; Other (Right flank pain) Musculoskeletal: No other, No neck pain, No shoulder pain, No arm pain, No back pain, No hand pain, No leg pain, No foot pain Skin: No Rash, No Lesions, No Jaundice, No Bruising, No Other Objective Vitals Vital Signs Date Time Temp Pulse Resp B/P (MAP) Pulse Ox O2 Delivery O2 Flow Rate FiO2 07/11/24 16:30 98.0 95 14 139/90 (106) 97 98.0 07/11/24 08:00 Room Air* 0 21 Intake/Output Intake and Output 07/11/24 07:00 Intake Total 1550 ml Balance 1550 ml Intake Oral 100 ml IV Total 1450 ml # Voids 1 General Appearance: Alert, Oriented X3 HEENT: Atraumatic Cardiovascular: Regular rate, Normal S1, Normal S2 Abdomen: Normal bowel sounds Medications Current Medications Medications Dose Ordered Sig/Yarelis Route Start Time Stop Time Status Last Admin Dose Admin Hydralazine HCl 10 mg Q6HP PRN IV 07/10/24 23:15 07/11/24 01:52 10 MG Pantoprazole Sodium 40 mg DAILY IV 07/11/24 10:00 07/11/24 10:00 40 MG Hydrochlorothiazide 25 mg DAILY PO 07/11/24 10:00 07/11/24 11:12 25 MG Diagnostic Test (Pha) 1 strip ACHS 07/11/24 07:00 07/11/24 11:50 1 STRIP Insulin Human Regular ACHS SC 07/11/24 07:00 07/11/24 11:30 2 UNITS Dextrose 50 ml UD PRN IV 07/10/24 23:15 Sodium Chloride 10 ml Q8HR IV 07/11/24 06:00 07/11/24 14:00 10 ML Acetaminophen/ Hydrocodone Bitart 1 tab Q4HP PRN PO 07/10/24 23:15 07/11/24 11:12 1 TAB Ondansetron HCl 4 mg Q4HP PRN IV 07/10/24 23:15 Docusate Sodium 100 mg BIDPRN PRN PO 07/10/24 23:15 Acetaminophen 650 mg Q6HP PRN PO 07/10/24 23:15 07/11/24 04:35 650 MG Morphine Sulfate 2 mg Q4HPRN PRN IV 07/10/24 23:15 Cancel Nitroglycerin 0.4 mg Q5MINP PRN SL 07/10/24 23:15 Morphine Sulfate 2 mg Q30M PRN IV 07/10/24 23:15 Cancel Morphine Sulfate 2 mg Q4HPRN PRN IV 07/11/24 09:45 Morphine Sulfate 2 mg Q30M PRN IV 07/11/24 09:45 Cefepime HCl 50 ml @ 12.5 mls/hr Q8HR IV 07/11/24 14:00 07/11/24 14:00 12.5 MLS/HR Sodium Chloride 1,000 ml @ 125 mls/hr Q8H IV 07/11/24 12:00 07/11/24 12:00 125 MLS/HR Laboratory Results Laboratory Tests 07/11/24 08:41 Chemistry Test 07/11/24 08:41 Albumin 3.5 g/dL (3.2-4.8) Calcium Level 9.0 mg/dL (8.7-10.4) Total Protein 6.0 g/dL (5.7-8.2) Coagulation Test 07/11/24 08:41 Prothrombin Time 12.6 sec (9.3-11.8) H Prothrombin Time INR 1.21 (0.9-1.15) H LFT Test 07/11/24 08:41 Alanine Aminotransferase (ALT) 24 U/L (7-40) Alkaline Phosphatase 125 U/L (46-116) H Aspartate Amino Transferase (AST) 25 U/L (13-40) Total Bilirubin 0.6 mg/dL (0.2-1.0) Urinalysis Test 07/10/24 17:15 Urine Color Light-yellow (Yellow) Urine Clarity Clear (Clear) Urine pH 6.0 (5.0-9.0) Urine Specific [place] 1.013 (1.001-1.035) Urine Protein 1+ (Negative) H Urine Ketones Negative (Negative) Urine Blood 2+ /uL (Negative) H Urine Nitrite Negative (Negative) Urine Bilirubin Negative (Negative) Urine Urobilinogen Normal mg/dL (Negative) Urine Leukocyte Esterase 3+ /uL (Negative) Urine RBC 8 /hpf (0 - 4) Urine Microscopic WBC 123 /HPF (0-5) H Urine Squamous Epithelial Cells Few /hpf (<5) Urine Bacteria Few /hpf (None Seen) H Urine Glucose 4+ mg/dL (Normal) H Assessment/Plan Assessment/Plan Gastroenteritis Hydronephrosis sepsis due to UTI Urinary tract infection Nonspecific abdominal pain Kidney stones Generalized weakness Acute kidney injury due to ATN Continue IV abx cefepime IVF Per urology needs nephrostomy tube once sepsis controlled Monitor daily BMP Plan discussed with: Patient My Orders Orders - DEMETRIUS HUI MD Procedure Category Date Status Time Sodium Chloride 0.9% PHA 07/11/24 In Process 12:00 Date of Service: Jul 11, 2024 Billing Provider: DEMETRIUS HUI MD Common Visit Codes: [id number] INP/OBS CARE(HIGH) DEMETRIUS HUI MD Jul 11, 2024 17:36
[2024-07-11] MEDS: KETOROLAC TROMETH 30 MG/ML 1ML VIAL IM ONE (18:59)
[2024-07-12] VITALS (12 sets, daily range): BP systolic 119–172; BP diastolic 72–99; PULSE 76–101; RESP 14–24; TEMP 99.2–101.3; O2SAT 93–97
[2024-07-12] MEDS: IODIXANOL 320MG/ML 100ML BTL IV ONE (10:53)
[2024-07-12] MEDS: MIDAZOLAM HCL 2MG/2ML 2ml VIAL (1mg/ml) ONE (11:04)
[2024-07-12] MEDS: fentaNYL CITRATE 100 MCG/2 ML VL ONE (11:04)
[2024-07-12] MEDS: LIDOCAINE 2%HCL (LOCAL ANESTH.) INJ 20ML MDV ONE (11:04)
[2024-07-12] MEDS ORDERED: VANCOMYCIN PER PHARMACY 0 MG IV SCH (12:15)
--- NOTE | 2024-07-12 12:23 | DVHPN2 ---
Progress Note Date Seen: Jul 12, 2024 Medical Necessity Reason Pt with a Central, PICC or Fol: Yes The following are medically ne: Pro Catheter Reason for pro catheter: Strict I&O Subjective Patient reports: No new complaints Review of Systems: HEENT:Normal, CVS:Normal, RESPIRATORY:Normal, GI:Normal, :Normal, MSK:Normal, NEURO:Normal Objective vital signs Vital Sign Date Time Temp Pulse Resp B/P (MAP) Pulse Ox O2 Delivery O2 Flow Rate FiO2 07/12/24 09:36 137/87 07/12/24 08:28 99.2 100 16 97 99.2 07/12/24 08:00 Room Air* 0 21 Total Intake and Output 07/11/24 07/11/24 07/12/24 15:00 23:00 07:00 Intake Total 1700 ml 610 ml Output Total 1075 ml 1375 ml Balance 625 ml -765 ml medications Current Medications Medications Dose Ordered Sig/Yarelis Route Start Time Stop Time Status Last Admin Dose Admin Hydralazine HCl 10 mg Q6HP PRN IV 07/10/24 23:15 07/11/24 01:52 10 MG Pantoprazole Sodium 40 mg DAILY IV 07/11/24 10:00 07/11/24 10:00 40 MG Diagnostic Test (Pha) 1 strip ACHS 07/11/24 07:00 07/12/24 06:34 1 STRIP Insulin Human Regular ACHS SC 07/11/24 07:00 07/11/24 11:30 2 UNITS Dextrose 50 ml UD PRN IV 07/10/24 23:15 Sodium Chloride 10 ml Q8HR IV 07/11/24 06:00 07/12/24 06:22 10 ML Acetaminophen/ Hydrocodone Bitart 1 tab Q4HP PRN PO 07/10/24 23:15 07/11/24 11:12 1 TAB Ondansetron HCl 4 mg Q4HP PRN IV 07/10/24 23:15 Docusate Sodium 100 mg BIDPRN PRN PO 07/10/24 23:15 Acetaminophen 650 mg Q6HP PRN PO 07/10/24 23:15 07/12/24 01:15 650 MG Morphine Sulfate 2 mg Q4HPRN PRN IV 07/10/24 23:15 Cancel Nitroglycerin 0.4 mg Q5MINP PRN SL 07/10/24 23:15 Morphine Sulfate 2 mg Q30M PRN IV 07/10/24 23:15 Cancel Morphine Sulfate 2 mg Q4HPRN PRN IV 07/11/24 09:45 Morphine Sulfate 2 mg Q30M PRN IV 07/11/24 09:45 Cefepime HCl 50 ml @ 12.5 mls/hr Q8HR IV 07/11/24 14:00 07/12/24 06:27 12.5 MLS/HR Sodium Chloride 1,000 ml @ 125 mls/hr Q8H IV 07/11/24 12:00 07/12/24 07:12 125 MLS/HR Vancomycin HCl 0 ml @ 0 mls/hr UD IV 07/12/24 12:15 UNV Examination: GENERAL:Normal, HEENT:Normal, NECK:Normal, LUNGS:Normal, CVS:Normal, ABDOMEN:Normal, MSK:Normal, SKIN:Normal, NEURO:Normal, :Normal laboratory and microbiology Laboratory Tests 07/11/24 08:41 Test 07/11/24 08:41 Range/Units Serum Glucose 98 74-106 mg/dL Microbiology Date/Time Source Procedure Growth Status 07/10/24 17:15 Voided Urine Urine Culture - Preliminary Resulted Problem List/Assessment/Plan Problem List/Assessment/Plan #1 sepsis with uti: add vanc, cultures #2 right renal stone with hydronephrosis: nephrostomy tube today #3 dm: ssi #4 htn #5 obesity #6 acute renal failure ?vasomotor nephropathy: ivf Plan discussed with: Other (rn) My Orders My Orders Orders - KAYKAY MARINA MD Procedure Category Date Status Time Blood Culture JUSTIN 07/12/24 Logged 12:11 Vancomycin Per PHA 07/12/24 Logged Pharmacy 12:15 Complete Blood Count LAB 07/12/24 Logged 12:11 Comprehensive LAB 07/12/24 Logged Metabolic Panel 12:11 Basic Metabolic Panel LAB 07/13/24 Verified 06:00 Complete Blood Count LAB 07/13/24 Verified 06:00 Hemoglobin A1c LAB 07/13/24 Verified 06:00 Date of Service: Jul 12, 2024 Billing Provider: KAYKAY MARINA MD Common Visit Codes: [id number] INP/OBS CARE(HIGH) KAYKAY MARINA MD Jul 12, 2024 12:23
--- NOTE | 2024-07-12 13:00 | DVHPN2 ---
Progress Note - Dictate Date Seen: Jul 12, 2024 Medical Necessity Reason Pt with a Central, PICC or Fol: Yes The following are medically ne: Pro Catheter Reason for pro catheter: Bladder Retention/Obstruc, Strict I&O vital signs Vital Sign Date Time Temp Pulse Resp B/P (MAP) Pulse Ox O2 Delivery O2 Flow Rate FiO2 07/12/24 09:36 137/87 07/12/24 08:28 99.2 100 16 97 99.2 07/12/24 08:00 Room Air* 0 21 Total Intake and Output 07/11/24 07/11/24 07/12/24 15:00 23:00 07:00 Intake Total 1700 ml 610 ml Output Total 1075 ml 1375 ml Balance 625 ml -765 ml medications Current Medications Medications Dose Ordered Sig/Yarelis Route Start Time Stop Time Status Last Admin Dose Admin Hydralazine HCl 10 mg Q6HP PRN IV 07/10/24 23:15 07/11/24 01:52 10 MG Pantoprazole Sodium 40 mg DAILY IV 07/11/24 10:00 07/11/24 10:00 40 MG Diagnostic Test (Pha) 1 strip ACHS 07/11/24 07:00 07/12/24 06:34 1 STRIP Insulin Human Regular ACHS SC 07/11/24 07:00 07/11/24 11:30 2 UNITS Dextrose 50 ml UD PRN IV 07/10/24 23:15 Sodium Chloride 10 ml Q8HR IV 07/11/24 06:00 07/12/24 06:22 10 ML Acetaminophen/ Hydrocodone Bitart 1 tab Q4HP PRN PO 07/10/24 23:15 07/11/24 11:12 1 TAB Ondansetron HCl 4 mg Q4HP PRN IV 07/10/24 23:15 Docusate Sodium 100 mg BIDPRN PRN PO 07/10/24 23:15 Acetaminophen 650 mg Q6HP PRN PO 07/10/24 23:15 07/12/24 01:15 650 MG Morphine Sulfate 2 mg Q4HPRN PRN IV 07/10/24 23:15 Cancel Nitroglycerin 0.4 mg Q5MINP PRN SL 07/10/24 23:15 Morphine Sulfate 2 mg Q30M PRN IV 07/10/24 23:15 Cancel Morphine Sulfate 2 mg Q4HPRN PRN IV 07/11/24 09:45 Morphine Sulfate 2 mg Q30M PRN IV 07/11/24 09:45 Cefepime HCl 50 ml @ 12.5 mls/hr Q8HR IV 07/11/24 14:00 07/12/24 06:27 12.5 MLS/HR Sodium Chloride 1,000 ml @ 125 mls/hr Q8H IV 07/11/24 12:00 07/12/24 07:12 125 MLS/HR Vancomycin HCl 0 ml @ 0 mls/hr UD IV 07/12/24 12:15 UNV laboratory and microbiology Laboratory Tests 07/11/24 08:41 Test 07/11/24 08:41 Range/Units Serum Glucose 98 74-106 mg/dL Assessment/Plan pt off unit for PCN placement Problems(with codes): (1) Hydronephrosis concurrent with and due to calculi of kidney and ureter (2) Sepsis Prognosis fair Plan discussed with: KEATON Rock PLANE TABLEMAN Jul 12, 2024 13:00
--- NOTE | 2024-07-12 13:05 | DVH ---
XY PERCUTANEOUS NEPHROSTOMY, HISTORY: Septic right kidney stone with hydronephrosis. PROCEDURE: Informed consent was obtained. The patient was placed on the fluoroscopic table in a prone position and IV sedation administered. The right flank was prepped with chlorhexidine which was allo wed to dry and draped in the usual sterile fashion. Time out was performed. and the soft tissues infi ltrated with 1% lidocaine local anesthetic. Utilizing ultrasound guidance, a 21 gauge Accustick needl e was advanced from a posterolateral approach into an lower pole infundibulum, and a small amount of contrast was injected under fluoroscopy to confirm positioning. Over a mandril wire, exchange was mad e to a non-vascular access set, through which was advanced an 0.035 wire. Following serial dilation, an 8.5 M[place]ese multipurpose nephrostomy catheter was placed with tip pigtailed within the renal pelvis . Position was confirmed with antegrade nephrostogram. The catheter was secured in place and connecte d to gravity drainage. A sterile dressing was applied. No immediate complication was identified. DAP 1257 FLUOROSCOPY TIME: 6.1 minutes. CONTRAST USED: 20 mL . SEDATION: Dr. Vanessa Reyes was personally responsible for the administration of moderate sedation during the procedure performed, including the use of an independent trained observer who had no other duties during the procedure. The drugs utilized were IV fentanyl and versed (see nursing log for details). The total time of supervision by the attending physician was approximately 60 minutes. FINDINGS: Mildly dilated right renal collecting system involving the calyces/renal pelvis/ureter to t he level of the mid ureter. New 8.5 [place] nephrostomy tube via a posterior lower pole infundib ulum access, with loop coiled within the renal pelvis. IMPRESSION: Right hydronephrosis due to septic right kidney stone at the proximal ureter, status post successful placement of 8.5 Maltese right percutaneous nephrostomy catheter. PLAN: Routine catheter care.
--- NOTE | 2024-07-12 13:09 | DVH ---
US US GUIDANCE FOR NEEDLE PLACEME, HISTORY: Septic right kidney stone with hydronephrosis. PROCEDURE: Informed consent was obtained. The patient was placed on the fluoroscopic table in a prone position and IV sedation administered. The right flank was prepped with chlorhexidine which was allo wed to dry and draped in the usual sterile fashion. Time out was performed. and the soft tissues infi ltrated with 1% lidocaine local anesthetic. Utilizing ultrasound guidance, a 21 gauge Accustick needl e was advanced from a posterolateral approach into an lower pole infundibulum, and a small amount of contrast was injected under fluoroscopy to confirm positioning. Over a mandril wire, exchange was mad e to a non-vascular access set, through which was advanced an 0.035 wire. Following serial dilation, an 8.5 [place] multipurpose nephrostomy catheter was placed with tip pigtailed within the renal pelvis . Position was confirmed with antegrade nephrostogram. The catheter was secured in place and connecte d to gravity drainage. A sterile dressing was applied. No immediate complication was identified. DAP 1257 FLUOROSCOPY TIME: 6.1 minutes. CONTRAST USED: 20 mL . SEDATION: Dr. Vanessa Reyes was personally responsible for the administration of moderate sedation during the procedure performed, including the use of an independent trained observer who had no other duties during the procedure. The drugs utilized were IV fentanyl and versed (see nursing log for details). The total time of supervision by the attending physician was approximately 60 minutes. FINDINGS: Mildly dilated right renal collecting system involving the calyces/renal pelvis/ureter to t he level of the mid ureter. New 8.5 new [place] nephrostomy tube via a posterior lower pole infundibulum a ccess, with loop coiled within the renal pelvis. IMPRESSION: Right hydronephrosis due to septic right kidney stone at the proximal ureter, status post successful placement of 8.5 [place] right percutaneous nephrostomy catheter. PLAN: Routine catheter care.
--- NOTE | 2024-07-12 14:39 | ECG ---
[facility] Test Date: 2024-07-12 Test Time: 10:52:28 Pat Name: VIET GUARDADO Department: Room: [address] [place] [address] 2 Gender: F General Education Instructor: GIOVANNA : 1975 Requested By: ORLANDO MEJIA Order Number: [id number] Reading MD: Jack Silva Measurements Intervals [place] Rate: 79 P: 65 MN: 144 QRS: 42 QRSD: 92 T: 47 QT: 348 QTc: 399 Interpretive Statements Normal sinus rhythm Nonspecific ST and T wave abnormality Electronically Signed On 07-14-2024 14:40:15 PDT by Jack Silva Please click the below link to view image of tracing.
[2024-07-12 15:17] LABS: Basophils # (auto) 0 10 ^3/uL (0-0.2); Basophils % (auto) 0.2 % (0.0-2.0); Eosinophils # (auto) 0.1 10 ^3/uL (0-0.8); Eosinophils % (auto) 0.6 % (0.0-7.0); Hematocrit 42.3 % (36.0-46.0); Hemoglobin 13.9 g/dL (12.2-16.2); Lymphocytes # (auto) 0.9 10 ^3/uL (0.4-5.4); Lymphocytes % (auto) 6.4 % (10.0-50.0); Mean Corpuscular Hgb Conc. 32.9 g/dL (32.0-36.0); Mean Corpuscular Volume 82.1 fL (80.0-100.0); Monocytes # (auto) 0.7 10 ^3/uL (0-1.3); Monocytes % (auto) 5.3 % (0.0-12.0); Neutrophils # (auto) 11.7 10 ^3/uL (1.6-8.6); Neutrophils % (auto) 87.5 % (37.0-80.0); Platelet Count (auto) 257 10^3/uL (140-450); Red Blood Cells 5.15 10^6/uL (4.0-5.20); Red Cell Distribution Width 15.2 % (11.8-14.3); White Blood Cell 13.3 10^3/uL (4.4-10.8)
[2024-07-12 15:32] LABS: Alanine Aminotransferase 35 U/L (7-40); Albumin 3.7 g/dL (3.2-4.8); Anion Gap 8 (5-15); Aspartate Aminotransferase 35 U/L (13-40); BUN/Creatinine Ratio 10.5 (10.0-20.0); Bilirubin, Total 0.7 mg/dL (0.2-1.0); Blood Urea Nitrogen 14 mg/dL (9-23); Calcium 9.5 mg/dL (8.7-10.4); Carbon Dioxide 25 mmol/L (20-31); Glucose 85 mg/dL (74-106); Sodium 141 mmol/L (136-145); Total Protein 6.7 g/dL (5.7-8.2)
[2024-07-12 15:33] LABS: Alkaline Phosphatase 181 U/L (46-116); Chloride 108 mmol/L (98-107); Potassium 3.1 mmol/L (3.5-5.1)
[2024-07-12] MEDS: VANCOMYCIN 1.5GM/300ML 300 ML IV SCH (18:00)
[2024-07-12] MEDS: MORPHINE SULFATE 4 MG/ML SYR/VIAL IV PRN (20:11)
[2024-07-12] MEDS: POTASSIUM EFFERVESENT TAB 25 MEQ PO ONE (22:46)
[2024-07-13] VITALS (8 sets, daily range): BP systolic 134–153; BP diastolic 74–107; PULSE 78–95; RESP 17–19; TEMP 97.4–101; O2SAT 94–98
[2024-07-13 06:07] LABS: Basophils # (auto) 0 10 ^3/uL (0-0.2); Basophils % (auto) 0.3 % (0.0-2.0); Eosinophils # (auto) 0.2 10 ^3/uL (0-0.8); Eosinophils % (auto) 1.7 % (0.0-7.0); Hematocrit 38.3 % (36.0-46.0); Lymphocytes # (auto) 1.3 10 ^3/uL (0.4-5.4); Mean Corpuscular Hemoglobin 27.5 pg (28.0-32.0); Mean Corpuscular Hgb Conc. 33.9 g/dL (32.0-36.0); Mean Corpuscular Volume 81.1 fL (80.0-100.0); Monocytes # (auto) 0.9 10 ^3/uL (0-1.3); Monocytes % (auto) 8.5 % (0.0-12.0); Neutrophils # (auto) 7.9 10 ^3/uL (1.6-8.6); Neutrophils % (auto) 76.5 % (37.0-80.0); Platelet Count (auto) 254 10^3/uL (140-450); Red Blood Cells 4.72 10^6/uL (4.0-5.20); Red Cell Distribution Width 14.6 % (11.8-14.3); White Blood Cell 10.3 10^3/uL (4.4-10.8)
[2024-07-13 06:08] LABS: Sodium 140 mmol/L (136-145)
[2024-07-13 06:09] LABS: Anion Gap 10 (5-15); Carbon Dioxide 23 mmol/L (20-31)
[2024-07-13 06:14] LABS: Glucose 98 mg/dL (74-106)
[2024-07-13 06:15] LABS: BUN/Creatinine Ratio 10.5 (10.0-20.0); Blood Urea Nitrogen 12 mg/dL (9-23)
[2024-07-13 06:19] LABS: Calcium 8.5 mg/dL (8.7-10.4); Chloride 107 mmol/L (98-107)
--- NOTE | 2024-07-13 11:33 | DVHPN2 ---
Progress Note Date Seen: Jul 13, 2024 Medical Necessity Reason Pt with a Central, PICC or Fol: Yes The following are medically ne: Pro Catheter Reason for pro catheter: Bladder Retention/Obstruc, Strict I&O Subjective Patient reports: No new complaints Review of Systems: HEENT:Normal, CVS:Normal, RESPIRATORY:Normal, GI:Normal, :Normal, MSK:Normal, NEURO:Normal Objective vital signs Vital Sign Date Time Temp Pulse Resp B/P (MAP) Pulse Ox O2 Delivery O2 Flow Rate FiO2 07/13/24 09:00 98.5 82 18 135/86 (102) 98 98.5 07/13/24 08:00 Room Air* 0 21 Total Intake and Output 07/12/24 07/12/24 07/13/24 15:00 23:00 07:00 Intake Total 50 ml 1350 ml Output Total 1050 ml 1690 ml Balance 50 ml -1050 ml -340 ml medications Current Medications Medications Dose Ordered Sig/Yarelis Route Start Time Stop Time Status Last Admin Dose Admin Hydralazine HCl 10 mg Q6HP PRN IV 07/10/24 23:15 07/12/24 13:59 10 MG Pantoprazole Sodium 40 mg DAILY IV 07/11/24 10:00 07/11/24 10:00 40 MG Diagnostic Test (Pha) 1 strip ACHS 07/11/24 07:00 07/13/24 06:40 1 STRIP Insulin Human Regular ACHS SC 07/11/24 07:00 07/11/24 11:30 2 UNITS Dextrose 50 ml UD PRN IV 07/10/24 23:15 Sodium Chloride 10 ml Q8HR IV 07/11/24 06:00 07/13/24 05:31 10 ML Acetaminophen/ Hydrocodone Bitart 1 tab Q4HP PRN PO 07/10/24 23:15 07/13/24 03:06 1 TAB Ondansetron HCl 4 mg Q4HP PRN IV 07/10/24 23:15 Docusate Sodium 100 mg BIDPRN PRN PO 07/10/24 23:15 Acetaminophen 650 mg Q6HP PRN PO 07/10/24 23:15 07/12/24 16:12 650 MG Morphine Sulfate 2 mg Q4HPRN PRN IV 07/10/24 23:15 Cancel Nitroglycerin 0.4 mg Q5MINP PRN SL 07/10/24 23:15 Morphine Sulfate 2 mg Q30M PRN IV 07/10/24 23:15 Cancel Morphine Sulfate 2 mg Q4HPRN PRN IV 07/11/24 09:45 07/13/24 04:10 2 MG Morphine Sulfate 2 mg Q30M PRN IV 07/11/24 09:45 Cefepime HCl 50 ml @ 12.5 mls/hr Q8HR IV 07/11/24 14:00 07/13/24 05:31 12.5 MLS/HR Sodium Chloride 1,000 ml @ 125 mls/hr Q8H IV 07/11/24 12:00 07/13/24 00:00 125 MLS/HR Vancomycin HCl 0 ml @ 0 mls/hr UD IV 07/12/24 12:15 Vancomycin HCl 300 ml @ 200 mls/hr Q16H IV 07/12/24 18:00 Examination: GENERAL:Normal, HEENT:Normal, NECK:Normal, LUNGS:Normal, CVS:Normal, ABDOMEN:Normal, MSK:Normal, SKIN:Normal, NEURO:Normal, :Normal, :Abnormal (nephrostomy+) laboratory and microbiology Laboratory Tests 07/13/24 05:28 Test 07/13/24 05:28 Range/Units Serum Glucose 98 74-106 mg/dL Microbiology Date/Time Source Procedure Growth Status 07/10/24 17:15 Voided Urine Urine Culture - Final Complete Problem List/Assessment/Plan Problem List/Assessment/Plan #1 sepsis with uti: add vanc, cultures #2 right renal stone with hydronephrosis: s/p nephrostomy tube #3 dm: ssi #4 htn #5 obesity #6 acute renal failure ?vasomotor nephropathy: ivf #7 hypokalemia: replace Plan discussed with: Patient My Orders My Orders Orders - KAYKAY MARINA MD Procedure Category Date Status Time Blood Culture JUSTIN 07/12/24 In Process 12:11 Vancomycin Per PHA 07/12/24 In Process Pharmacy 12:15 Percutaneous XY 07/12/24 Resulted Nephrostomy 12:47 Vancomycin 1.5gm/300ml PHA 07/12/24 In Process 18:00 Vancomycin,Trough LAB 07/14/24 Verified 17:00 Vancomycin Per LILY 07/12/24 In Process Pharmacy Protoc 14:18 Consistent DIET 07/12/24 Transmitted Carb([facility])Diabetes Dinner Date of Service: Jul 13, 2024 Billing Provider: KAYKAY MARINA MD Common Visit Codes: [id number] INP/OBS CARE(HIGH) KAYKAY MARINA MD Jul 13, 2024 11:33
[2024-07-13] MEDS: POTASSIUM CHLORIDE 40 MEQ, LIDOCAINE 1% (LOCAL ANESTH.) 4 ML in SODIUM CHL 0.9% 250 ML IV ONE (11:45)
--- NOTE | 2024-07-13 12:33 | DVHPN2 ---
Progress Note - Dictate Date Seen: Jul 13, 2024 Medical Necessity Reason Pt with a Central, PICC or Fol: Yes The following are medically ne: Pro Catheter Reason for pro catheter: Bladder Retention/Obstruc, Strict I&O vital signs Vital Sign Date Time Temp Pulse Resp B/P (MAP) Pulse Ox O2 Delivery O2 Flow Rate FiO2 07/13/24 09:00 98.5 82 18 135/86 (102) 98 98.5 07/13/24 08:00 Room Air* 0 21 Total Intake and Output 07/12/24 07/12/24 07/13/24 15:00 23:00 07:00 Intake Total 50 ml 1350 ml Output Total 1050 ml 1690 ml Balance 50 ml -1050 ml -340 ml medications Current Medications Medications Dose Ordered Sig/Yarelis Route Start Time Stop Time Status Last Admin Dose Admin Hydralazine HCl 10 mg Q6HP PRN IV 07/10/24 23:15 07/12/24 13:59 10 MG Pantoprazole Sodium 40 mg DAILY IV 07/11/24 10:00 07/13/24 10:00 40 MG Diagnostic Test (Pha) 1 strip ACHS 07/11/24 07:00 07/13/24 11:30 1 STRIP Insulin Human Regular ACHS SC 07/11/24 07:00 07/11/24 11:30 2 UNITS Dextrose 50 ml UD PRN IV 07/10/24 23:15 Sodium Chloride 10 ml Q8HR IV 07/11/24 06:00 07/13/24 05:31 10 ML Acetaminophen/ Hydrocodone Bitart 1 tab Q4HP PRN PO 07/10/24 23:15 07/13/24 03:06 1 TAB Ondansetron HCl 4 mg Q4HP PRN IV 07/10/24 23:15 Docusate Sodium 100 mg BIDPRN PRN PO 07/10/24 23:15 Acetaminophen 650 mg Q6HP PRN PO 07/10/24 23:15 07/12/24 16:12 650 MG Morphine Sulfate 2 mg Q4HPRN PRN IV 07/10/24 23:15 Cancel Nitroglycerin 0.4 mg Q5MINP PRN SL 07/10/24 23:15 Morphine Sulfate 2 mg Q30M PRN IV 07/10/24 23:15 Cancel Morphine Sulfate 2 mg Q4HPRN PRN IV 07/11/24 09:45 07/13/24 04:10 2 MG Morphine Sulfate 2 mg Q30M PRN IV 07/11/24 09:45 Sodium Chloride 1,000 ml @ 125 mls/hr Q8H IV 07/11/24 12:00 07/13/24 12:09 125 MLS/HR Vancomycin HCl 0 ml @ 0 mls/hr UD IV 07/12/24 12:15 Vancomycin HCl 300 ml @ 200 mls/hr Q16H IV 07/12/24 18:00 07/13/24 10:00 200 MLS/HR Ceftriaxone Sodium 50 ml @ 100 mls/hr DAILY@09 IV 07/14/24 09:00 laboratory and microbiology Laboratory Tests 07/13/24 05:28 Test 07/13/24 05:28 Range/Units Serum Glucose 98 74-106 mg/dL Assessment/Plan pt s/p PCN, good output. outpt lithotripsy TBA HHN for twice weekly dressing changes Problems(with codes): (1) Hydronephrosis concurrent with and due to calculi of kidney and ureter (2) Sepsis (3) UTI (urinary tract infection) (4) Kidney stones (5) Hydronephrosis Plan discussed with: Patient, Other KEATON FAJARDO NP Jul 13, 2024 12:33
[2024-07-14] VITALS (7 sets, daily range): BP systolic 149–161; BP diastolic 84–128; PULSE 67–84; RESP 17–18; TEMP 97.4–99.2; O2SAT 97–99
[2024-07-14 05:55] LABS: Basophils # (auto) 0 10 ^3/uL (0-0.2); Basophils % (auto) 0.4 % (0.0-2.0); Eosinophils # (auto) 0.3 10 ^3/uL (0-0.8); Eosinophils % (auto) 2.8 % (0.0-7.0); Hematocrit 39.1 % (36.0-46.0); Lymphocytes # (auto) 1.6 10 ^3/uL (0.4-5.4); Lymphocytes % (auto) 17.9 % (10.0-50.0); Mean Corpuscular Hgb Conc. 33.3 g/dL (32.0-36.0); Mean Corpuscular Volume 81.1 fL (80.0-100.0); Monocytes # (auto) 1.1 10 ^3/uL (0-1.3); Monocytes % (auto) 11.9 % (0.0-12.0); Neutrophils # (auto) 6.1 10 ^3/uL (1.6-8.6); Nucleated Red Blood Cells % 0.1 %; Platelet Count (auto) 302 10^3/uL (140-450); Red Blood Cells 4.82 10^6/uL (4.0-5.20); White Blood Cell 9.1 10^3/uL (4.4-10.8)
[2024-07-14 06:10] LABS: Anion Gap 11 (5-15); Carbon Dioxide 24 mmol/L (20-31); Sodium 143 mmol/L (136-145)
[2024-07-14 06:12] LABS: Calcium 8.9 mg/dL (8.7-10.4); Chloride 108 mmol/L (98-107); Potassium 2.9 mmol/L (3.5-5.1)
[2024-07-14 06:16] LABS: BUN/Creatinine Ratio 10.5 (10.0-20.0); Blood Urea Nitrogen 10 mg/dL (9-23); Glucose 87 mg/dL (74-106)
[2024-07-14 06:17] LABS: Magnesium 1.8 mg/dL (1.6-2.6)
[2024-07-14] MEDS: cefTRIAXone 1GM/50ML D5W 50 ML IV SCH (09:56)
[2024-07-14] MEDS: SODIUM CHLORIDE 0.9% 1,000 ML IV SCH (11:00)
[2024-07-14] MEDS: POTASSIUM CHLORIDE 40 MEQ, LIDOCAINE 1% (LOCAL ANESTH.) 4 ML in SODIUM CHL 0.9% 250 ML IV ONE (11:00)
--- NOTE | 2024-07-14 11:01 | DVHPN2 ---
Progress Note Date Seen: Jul 14, 2024 Medical Necessity Reason Pt with a Central, PICC or Fol: Yes Subjective Patient reports: No new complaints Review of Systems: HEENT:Normal, CVS:Normal, RESPIRATORY:Normal, GI:Normal, :Normal, MSK:Normal, NEURO:Normal Objective vital signs Vital Sign Date Time Temp Pulse Resp B/P (MAP) Pulse Ox O2 Delivery O2 Flow Rate FiO2 07/14/24 08:48 99.0 68 18 158/91 (113) 99 99.0 07/14/24 08:05 Room Air* 0 21 Total Intake and Output 07/13/24 07/13/24 07/14/24 15:00 23:00 07:00 Intake Total 950 ml 1160 ml 1500 ml Output Total 1050 ml 1375 ml Balance 950 ml 110 ml 125 ml medications Current Medications Medications Dose Ordered Sig/Yarelis Route Start Time Stop Time Status Last Admin Dose Admin Hydralazine HCl 10 mg Q6HP PRN IV 07/10/24 23:15 07/12/24 13:59 10 MG Pantoprazole Sodium 40 mg DAILY IV 07/11/24 10:00 07/14/24 09:55 40 MG Diagnostic Test (Pha) 1 strip ACHS 07/11/24 07:00 07/14/24 06:57 1 STRIP Insulin Human Regular ACHS SC 07/11/24 07:00 07/13/24 20:48 2 UNITS Dextrose 50 ml UD PRN IV 07/10/24 23:15 Sodium Chloride 10 ml Q8HR IV 07/11/24 06:00 07/14/24 05:12 10 ML Acetaminophen/ Hydrocodone Bitart 1 tab Q4HP PRN PO 07/10/24 23:15 07/13/24 23:27 1 TAB Ondansetron HCl 4 mg Q4HP PRN IV 07/10/24 23:15 Docusate Sodium 100 mg BIDPRN PRN PO 07/10/24 23:15 Acetaminophen 650 mg Q6HP PRN PO 07/10/24 23:15 07/12/24 16:12 650 MG Morphine Sulfate 2 mg Q4HPRN PRN IV 07/10/24 23:15 Cancel Nitroglycerin 0.4 mg Q5MINP PRN SL 07/10/24 23:15 Morphine Sulfate 2 mg Q30M PRN IV 07/10/24 23:15 Cancel Morphine Sulfate 2 mg Q4HPRN PRN IV 07/11/24 09:45 07/14/24 05:03 2 MG Morphine Sulfate 2 mg Q30M PRN IV 07/11/24 09:45 Sodium Chloride 1,000 ml @ 125 mls/hr Q8H IV 07/11/24 12:00 07/14/24 05:12 125 MLS/HR Vancomycin HCl 0 ml @ 0 mls/hr UD IV 07/12/24 12:15 Vancomycin HCl 300 ml @ 200 mls/hr Q16H IV 07/12/24 18:00 07/14/24 02:26 200 MLS/HR Ceftriaxone Sodium 50 ml @ 100 mls/hr DAILY@09 IV 07/14/24 09:00 07/14/24 09:56 100 MLS/HR Examination: GENERAL:Normal, HEENT:Normal, NECK:Normal, LUNGS:Normal, CVS:Normal, ABDOMEN:Normal, MSK:Normal, SKIN:Normal, NEURO:Normal, :Normal, :Abnormal (NEPHROSTOMY) laboratory and microbiology Laboratory Tests 07/14/24 05:07 Test 07/14/24 05:07 Range/Units Serum Glucose 87 74-106 mg/dL Microbiology Date/Time Source Procedure Growth Status 07/12/24 15:01 Blood Blood Culture - Preliminary NO GROWTH AFTER 24 HOURS OF INCUBATION. Resulted 07/10/24 17:15 Voided Urine Urine Culture - Final Complete Problem List/Assessment/Plan Problem List/Assessment/Plan #1 sepsis with uti: iv rocephin #2 right renal stone with hydronephrosis: s/p nephrostomy tube #3 dm: ssi #4 htn #5 obesity #6 acute renal failure ?vasomotor nephropathy: ivf #7 hypokalemia: replace Plan discussed with: Patient My Orders My Orders Orders - KAYKAY MARINA MD Procedure Category Date Status Time Ceftriaxone 1gm/50ml PHA 07/14/24 In Process D5w (Rocephin) 09:00 Vancomycin Per LILY 07/13/24 In Process Pharmacy Protoc 13:53 Date of Service: Jul 14, 2024 Billing Provider: KAYKAY MARINA MD Common Visit Codes: [id number] INP/OBS CARE(HIGH) KAYKAY MARINA MD Jul 14, 2024 11:00
[2024-07-14] MEDS: MAGNESIUM SULFATE 1GM/100ML 100 ML IV SCH (12:00)
[2024-07-14] MEDS: POTASSIUM CHL 20 Meq TABLET PO ONE (13:09)
[2024-07-15 01:00] VITALS: BP 131/79; PULSE 67; RESP 18; TEMP 97.9; O2SAT 97
[2024-07-15 05:00] VITALS: BP 156/96; PULSE 70; RESP 18; TEMP 97.5; O2SAT 99
[2024-07-15 06:18] LABS: Anion Gap 9 (5-15); Carbon Dioxide 25 mmol/L (20-31); Potassium 3.6 mmol/L (3.5-5.1); Sodium 144 mmol/L (136-145)
[2024-07-15 06:20] LABS: Calcium 9.6 mg/dL (8.7-10.4)
[2024-07-15 06:24] LABS: BUN/Creatinine Ratio 9.2 (10.0-20.0); Blood Urea Nitrogen 9 mg/dL (9-23); Chloride 110 mmol/L (98-107); Glucose 92 mg/dL (74-106)
[2024-07-15 06:25] LABS: Magnesium 2.1 mg/dL (1.6-2.6)
[2024-07-15 08:00] VITALS: PULSE 71; RESP 19; O2SAT 96
[2024-07-15 08:36] VITALS: BP 148/90; PULSE 71; RESP 19; TEMP 97.2; O2SAT 96
[2024-07-15 12:22] VITALS: BP 160/92; PULSE 59; RESP 21; TEMP 96.8; O2SAT 98
--- NOTE | 2024-07-15 15:22 | DVHDS2 ---
Discharge Summary Date of Admission July 10, 2024 at 23:05 Date of Discharge: Jul 15, 2024 Labs/Diagnostic Data: Laboratory Results Test 07/15/24 11:06 07/15/24 04:59 07/14/24 05:07 07/13/24 05:28 POC Glucose 105 mg/dl (70-106) Sodium Level 144 mmol/L (136-145) Potassium Level 3.6 mmol/L (3.5-5.1) Chloride Level 110 mmol/L (98-107) Carbon Dioxide Level 25 mmol/L (20-31) Anion Gap 9 (5-15) Blood Urea Nitrogen 9 mg/dL (9-23) Creatinine 0.98 mg/dL (0.550-1.02) Glomerular Filtration Rate Calc 70 mL/min (>90) BUN/Creatinine Ratio 9.2 (10.0-20.0) Serum Glucose 92 mg/dL (74-106) Calcium Level 9.6 mg/dL (8.7-10.4) Magnesium Level 2.1 mg/dL (1.6-2.6) White Blood Count 9.1 10^3/uL (4.4-10.8) Red Blood Count 4.82 10^6/uL (4.0-5.20) Hemoglobin 13.0 g/dL (12.2-16.2) Hematocrit 39.1 % (36.0-46.0) Mean Corpuscular Volume 81.1 fL (80.0-100.0) Mean Corpuscular Hemoglobin 27.0 pg (28.0-32.0) Mean Corpuscular Hemoglobin Concent 33.3 g/dL (32.0-36.0) Red Cell Distribution Width 15.0 % (11.8-14.3) Platelet Count 302 10^3/uL (140-450) Mean Platelet Volume 8.8 fL (6.9-10.8) Neutrophils (%) (Auto) 67.0 % (37.0-80.0) Lymphocytes (%) (Auto) 17.9 % (10.0-50.0) Monocytes (%) (Auto) 11.9 % (0.0-12.0) Eosinophils (%) (Auto) 2.8 % (0.0-7.0) Basophils (%) (Auto) 0.4 % (0.0-2.0) Neutrophils # (Auto) 6.1 10 ^3/uL (1.6-8.6) Lymphocytes # (Auto) 1.6 10 ^3/uL (0.4-5.4) Monocytes # (Auto) 1.1 10 ^3/uL (0-1.3) Eosinophils # (Auto) 0.3 10 ^3/uL (0-0.8) Basophils # (Auto) 0 10 ^3/uL (0-0.2) Nucleated Red Blood Cells 0.1 % Hemoglobin A1c 5.8 % A1C (<5.7) Test 07/12/24 15:01 07/11/24 10:06 07/11/24 08:41 07/10/24 17:15 Total Bilirubin 0.7 mg/dL (0.2-1.0) Aspartate Amino Transferase (AST) 35 U/L (13-40) Alanine Aminotransferase (ALT) 35 U/L (7-40) Alkaline Phosphatase 181 U/L (46-116) Total Protein 6.7 g/dL (5.7-8.2) Albumin 3.7 g/dL (3.2-4.8) Lactic Acid Level 1.9 mmol/L (0.4-2.0) Prothrombin Time 12.6 sec (9.3-11.8) Prothrombin Time INR 1.21 (0.9-1.15) Urine Color Light-yellow (Yellow) Urine Clarity Clear (Clear) Urine pH 6.0 (5.0-9.0) Urine Specific [place] 1.013 (1.001-1.035) Urine Protein 1+ (Negative) Urine Ketones Negative (Negative) Urine Blood 2+ /uL (Negative) Urine Nitrite Negative (Negative) Urine Bilirubin Negative (Negative) Urine Urobilinogen Normal mg/dL (Negative) Urine Leukocyte Esterase 3+ /uL (Negative) Urine RBC 8 /hpf (0 - 4) Urine Microscopic WBC 123 /HPF (0-5) Urine Squamous Epithelial Cells Few /hpf (<5) Urine Bacteria Few /hpf (None Seen) Urine Glucose 4+ mg/dL (Normal) Test 07/10/24 16:10 Lipase 31 U/L (12-53) Other Laboratory Tests 07/15/24 04:59 07/14/24 05:07 Brief Hx & Hospital Course: SEE DICTATED NOTE Condition at Discharge: Fair Final Diagnosis/Problems List RENAL STONE Discharge Disposition: Home Discharge Instruct/Medications Diet: Cardiac 2g Na,low cholest Activity: No Restrictions, As Tolerated Follow Up/Referral: [facility] Medications: RESUME HOME MEDS SCRIPT TO PHARMACY Discharge Statement: "Patient was advised to return to the ER or call 911 if any headaches, dizziness, shortness of breath, chest pain, abdominal pain, bleeding, fevers, or worsening of medical condition. Patient was counseled about treatment plan, medications, possible side effects, patientverbalized understanding. All questions were answered to the best of my ability. This discharge took greater then 30 minutes in planning, reviewing documentation, counseling the patient, and discussing with other team members." ASSESSMENT ASSESSMENT Assessment RENAL STONE Date of Service: Jul 15, 2024 Billing Provider: KAYKAY MARINA MD Common Visit Codes: [id number] DISCH DAY >30min KAYKAY MARINA MD Jul 15, 2024 15:22
[2024-07-15] MEDS ORDERED: HYDR1TAB97 PO (15:32)
[2024-07-15] MEDS ORDERED: CEFD300C2 PO (15:32)
[2024-07-15] MEDS ORDERED: DOCU-94 PO (15:32)
[2024-07-15 16:19] VITALS: BP 153/85; PULSE 67; RESP 20; TEMP 97.7; O2SAT 97
--- NOTE | 2024-07-15 17:04 | DVHDS ---
DATE OF DISCHARGE: 07/15/2024 HISTORY OF PRESENT ILLNESS: The patient is a 49-year-old lady who was admitted after she had upper abdominal pain and has previous history of kidney stones, diabetes, hypertension, and kidney cyst. HOSPITAL COURSE: The patient had CT of abdomen and pelvis that showed evidence of 7 mm calculus in the proximal right ureter with right hydronephrosis. The patient was septic with an elevated white count of 23,000. The patient was also in acute renal failure with a creatinine of 1.4. The patient was seen in Urology consult by Dr. Munoz. Blood cultures were negative. The patient had a nephrostomy tube placed by Interventional Radiology. The patient is now improved in her symptoms and has been cleared for discharge. She will be discharged with a nephrostomy tube with outpatient follow up for lithotripsy. The patient will be discharged to be on [place] p.r.n. for pain, Colace p.r.n. for constipation, and Ceftin 300 mg p.o. b.i.d. for seven days. FINAL DIAGNOSES: * Sepsis with UTI. * Right renal stone with hydronephrosis, status post nephrostomy tube placement. * Diabetes mellitus. * Hypertension. * Obesity. * Hypokalemia. * Acute renal failure, questionable vasomotor nephropathy. Time spent in discharge planning and review of plan with the patient and nursing was 39 minutes. MD VERONICA Granados/SCOTT/JOLENE TID: [id number] RECEIPT: [id number]
== END 2024-07-15 18:06 | disposition home health service (06) | DRG 720 ==
LOC: EDBD 14:45 → EDUNIT# 14:45 → ER 14:50 → OVERFLOW 23:05 → EAST 23:14
PROVIDERS: ADMIT Internal Medicine; ATTEND Internal Medicine
PROC: 0T9030Z Drainage of Right Kidney with Drainage Device, Percutaneous Approach (ICD-10-PCS; principal; 2024-07-12)
DX: A41.9 Sepsis, unspecified organism (principal); N17.0 Acute kidney failure with tubular necrosis; E11.9 Type 2 diabetes mellitus without complications; E66.9 Obesity, unspecified; Z68.35 Body mass index [BMI] 35.0-35.9, adult; E87.6 Hypokalemia; N13.6 Pyonephrosis; F12.90 Cannabis use, unspecified, uncomplicated; A04.9 Bacterial intestinal infection, unspecified; F17.210 Nicotine dependence, cigarettes, uncomplicated; I10 Essential (primary) hypertension; K59.00 Constipation, unspecified; Z79.84 Long term (current) use of oral hypoglycemic drugs; Z79.899 Other long term (current) drug therapy; Z87.442 Personal history of urinary calculi; Z93.6 Other artificial openings of urinary tract status; Z88.6 Allergy status to analgesic agent; Z88.8 Allergy status to other drugs, medicaments and biological substances; Z90.49 Acquired absence of other specified parts of digestive tract
CPT/HCPCS: 36415; 71046; 74177; 74425; 76942; 80048; 80053; 81001; 82962; 83036; 83605; 83690; 83735; 85025; 85610; 87040; 87086; 93005; 96365; 96375; 99152; G0378; J0692; J1815; J1885; J2003; J2250; J2405; J2470; J3490; Q9967

== ENCOUNTER 2024-07-23 22:43 | Emergency (ER) | payer MEDICAID ==
[~2024-07-23] VITALS: Ht 185.4 cm; Wt 114.2 kg
[~2024-07-23 22:43] MED LIST changes: +CEFD300C2 PO; +DOCU-94 PO; +HYDR1TAB97 PO
[2024-07-24] VITALS: BP 145/96; PULSE 88; RESP 18; TEMP 98.4; O2SAT 95
--- NOTE | 2024-07-24 01:04 | ED.PDOC ---
History of Present Illness(SKN HPI Comments Pt presents to the ER due to wound check. Pt reports nephrostomy tube placed on July 15 and states home health nurses have been coming to her home to do dressing changes. Pt states that yesterday home health nurse did dressing change and she nows feels a "pulling and burning sensation deep inside" Pt dressing noted to not be intact. Chief Complaint: Wound Check Time Seen by MD: 22:57 Primary Care Provider: Dr. Heart History of Present Illness: Nurses Notes, Medications, Allergies Allergies: Coded Allergies: Amlodipine (Verified Allergy, Severe, 10/08/23) Gabapentin (Verified Allergy, Severe, 10/08/23) Tramadol (Verified Allergy, Severe, 10/08/23) Home Meds Active Scripts Cefdinir (Cefdinir) 300 Mg Cap, 300 MG PO BID for 7 Days, #14 CAP Prov:KAYKAY MARINA MD 07/15/24 Docusate Sodium (Colace) 100 Mg Cap, 100 MG PO BIDPRN PRN for 30 Days, #50 CAP Prov:KAYKAY MARINA MD 07/15/24 Hydrocodone-Acetaminophen (Hydrocodone/Acetaminophen 5-325 mg) 1 Tab Tab, 1 TAB PO TIDP PRN for 8 Days, #24 TAB Prov:KAYKAY MARINA MD 07/15/24 Tamsulosin Hcl (Tamsulosin Hcl) 0.4 Mg Cap, 1 CAP PO DAILY, #30 CAP 5 Refills Prov:GABO BUNDY DO 10/08/23 Enalapril Maleate (Enalapril Maleate) 20 Mg Tab, 1 TAB PO DAILY, #30 TAB 1 Refill Prov:GABO BUNDY DO 10/08/23 Hydrocodone-Acetaminophen (Hydrocodone Bitartrate/AC 5-325 mg) 1 Tab Tab, 1 TAB PO Q8HP PRN for 7 Days, #21 TAB Prov:MARLEN DEWEY MD 06/30/23 Ciprofloxacin Hcl (Cipro) 500 Mg Tab, 1 TAB PO BID, #14 TAB Prov:MARLEN DEWEY MD 06/30/23 Tramadol Hcl (Tramadol Hcl) 50 Mg Tab, 50 MG PO Q8HP PRN for 5 Days, #15 TAB Prov:MARLEN DEWEY MD 06/30/23 Tamsulosin Hcl (Tamsulosin Hcl) 0.4 Mg Cap, 1 CAP PO DAILY, #30 CAP 5 Refills Prov:CARMELLA GARRISON 05/06/23 Hydrocodone-Acetaminophen (Hydrocodone Bitartrate/AC 10-325 mg) 1 Tab Tab, 1 TAB PO Q6HPRN PRN, #15 TAB Prov:CARMELLA GARRISON 05/06/23 Sulfamethoxazole W/Trimethopri (Bactrim Ds Tablet) 1 Tab Tb, 1 TAB PO BID for 5 Days, #10 TAB Prov:CARMELLA GARRISON 05/06/23 Pantoprazole Sodium Sesquihydr (Protonix) 40 Mg Tab, 40 MG PO DAILY for 20 Days, #20 TAB Prov:MARK FIGUEROA MD 04/20/23 Potassium Chloride (Klor-Con M20) 20 Meq Tab, 20 MEQ PO DAILY for 30 Days, #30 TAB 0 Refills Prov:TOREY GARRISON MD 08/13/19 Reported Medications Hctz (Hydrochlorothiazide) 25 Mg Tab, 25 MG PO DAILY, TAB 08/08/19 Mode of Arrival: Ambulatory Past Medical History PAST MEDICAL HISTORY: DM, HTN, Kidney Stones, MS Surgical History: Cholecystectomy AMPLIFIER MECHANIC History: No Pertinent AMPLIFIER MECHANIC History, Other Family History Family History: Reviewed,noncontributory to illness, Unknown Social History Smoker: Cigarettes Alcohol: Rarely Drugs: Marijuana Lives In: Home Constitutional: denies: chills, diaphoresis, fatigue, fever, malaise, sweats, weakness, others EENTM: denies: blurred vision, double vision, ear bleeding, ear discharge, ear drainage, ear pain, ear ringing, eye pain, eye redness, hearing loss, mouth p ain, mouth swelling, nasal discharge, nose bleeding, nose congestion, nose pain, photophobia, tearing, throat pain, throat swelling, voice changes, others Respiratory: denies: cough, hemoptysis, orthopnea, SOB at rest, shortness of br eath, SOB with excertion, stridor, wheezing, others Cardiovascular: denies: chest pain, dizzy spells, diaphoresis, Dyspnea on exertion, edema, irregular heart beat, left arm pain, lightheadedness, palpitations, PND, syncope, others Gastrointestinal: denies: abdomen distended, abdominal pain, blood streaked bowels, constipated, diarrhea, dysphagia, difficulty swallowing, hematemesis, melena, nausea, poor appetite, poor fluid intake, rectal bleeding, rectal pain, vomiting, others Genitourinary: reports: others (Nephrostomy tube concerns); denies: abnormal vagina bleeding, burning, dyspareunia, dysuria, flank pain, frequency, hematuria, incontinence, pain, , vagina discharge, urgency Neurological: denies: dizziness, fainting, headache, left sided numbness, left sided weakness, numbness, paresthesia, pre-existing deficit, right sided numbness, right sided weakness, seizure, speech problems, tingling, tremors, weakness, others Musculoskeletal: denies: back pain, gout, joint pain, joint swelling, muscle pain, muscle stiffness, neck pain, others Integumetry: denies: bruises, change in color, change in hair/nails, dryness, laceration, lesions, lumps, rash, wounds, others Allergic/Immunocompromised: denies: Difficulty Healing, Frequent Infections, Hives, Itching, others Hematologic/Lymphatic: denies: anemia, blood clots, easy bleeding, easy bruising, swollen glands, others Endocrine: denies: excessive hunger, excessive sweating, excessive thirst, excessive urination, flushing, intolerance to cold, intolerance to heat, unexplained weight gain, unexplained weight loss, others Psychiatric: denies: anxiety, bipolar disorder, depression, hopeless, panic dis order, schizophrenia, sleepless, suicidal, others Physical Exam General Appearance: No Apparent Distress, Normal HEENT: Pharynx Normal Neck: Full Range of Motion, Non-Tender Respiratory: Lungs Clear, No Respiratory Distress, Normal Breath Sounds Cardiovascular: No Murmur, Normal Peripheral Pulses, Regular Rate/Rhythm Breast Exam: Deferred Gastrointestinal: No Organomegaly, Non Tender, No Pulsatile Mass, Normal Bowel Sounds, Soft, Other (Nephrostomy tube in place no noted erythema edema or drainage around opening mild tenderness palpated) Genitalia: Deferred Pelvic: Deferred Rectal: Deferred Extremities: No calf tenderness, Normal range of motion Musculoskeletal : Apperance: Normal Neurologic: Alert, kitchen utility associate II-XII nml as Tested, No Motor Deficits, Normal Affect, Normal Mood, No Sensory Deficits Cerebellar Function: Normal Reflexes: Normal Skin: Dry, Normal Color, Warm Lymphatic: No Adenopathy Was a procedure done? Was a procedure done?: No Differential Diagnosis (INTG) Differential Diagnosis: Cellulitis, Hematoma X-Ray, Labs, Meds, VS Vital Signs Date Time Temp Pulse Resp B/P (MAP) Pulse Ox O2 Delivery O2 Flow Rate FiO2 07/24/24 00:00 98.4 88 18 145/96 (112) 95 98.4 X-Ray, Labs, Meds, VS Comment CT IMPRESSION: 1. A 4.8 mm calculus in the right proximal ureter causes mild right-sided hydronephrosis and proximal hydroureter. Percutaneous right nephrostomy is in place. A punctate nonobstructive calculus measuring about 2 to 3 mm is present in the left kidney interpolar and lower pole calyx. 2. Mild hepatomegaly with fatty infiltration of the liver is noted. Post cholecystectomy status is present. 3. Moderate fluid-filled distension of the stomach is seen. Moderate fecal residue is present in the large bowel loops, especially in the ascending and transverse colon. Scattered diverticulosis of the descending and sigmoid colon is present without diverticulitis. The appendix is normal measuring approximately 3 mm. 4. Degenerative changes are noted in the sacroiliac joints, superolateral hip joints, and there are [id number] degenerative changes in the lumbar spine at L5-S1 including a circumferential 5.5 mm disc osteophyte complex bulge with bilateral hypertrophic facet arthropathy and bqlzrwmn-[id number] narrowing of the neural foramina. Electronically Signed 07/24/2024 03:45 Sonya Murdock NEPHROSTOMY TUBE IN PLACE NO NOTED OBSTRUCTED RENAL CALCULI. PATIENT PAGED X3 IN THE LOBBY AND OUTSIDE NO ANSWER PATIENT ELOPED PRIOR TO CT RESULTS AND DRESSING CHANGE. Time of 1ST Reevaluation: 22:57 Reevaluation 1ST: Unchanged Patient Education/Counseling: Diagnosis, Treatment, Prognosis, Need For Follow Up Family Education/Counseling: No Family Present Departure 1 Departure Time of Disposition: 04:20 Impression: Primary Impression: Hydronephrosis concurrent with and due to calculi of kidney and ureter Additional Impression: H/O insertion of nephrostomy tube Disposition: 07 LEFT AWOL/ELOPED Condition: Stable Discharged With: Self Critical Care Note Critical Care Time?: No Stability Stability form required: CHADD Eller Jul 24, 2024 01:04
--- NOTE | 2024-07-24 03:46 | DVH ---
Examination: ABPL CLINICAL INDICATION: Nephrostomy tube complication/pain DIREAS;Reason for Exam: Ambulatory;Ambulatory ;Modes of Transportation DITRANS;How is patient transported? ;07/15/2024 ITS.LMP;Last menstrual perio d: N;No;Yes/No/Unknown ITS.PREG;? COMPARISON: None. CONTRAST USED: None. TECHNIQUE: A plain CT study of the abdomen and pelvis was performed using 5 mm thin slices. The exami nation was conducted according to ALARA (As Low as Reasonably Achievable) principles. Multiplanar rec onstructions were obtained. FINDINGS: CT Abdomen: Lung Base: The evaluation of lung bases demonstrates no focal infiltrates or pleural effusion. Unenhanced Liver: Mild hepatomegaly is noted with fatty infiltration of the liver. No discrete focal lesion is seen. Gallbladder: Post cholecystectomy status is noted. The common bile duct is not dilated. Unenhanced Pancreas: The pancreas is normal in size and shape. No focal lesion is seen within. The pe ripancreatic fat-planes are normal. Unenhanced Spleen: The spleen is normal in size and does not show any focal abnormality. Retroperitoneum: Both adrenal glands are normal in size and morphology on this unenhanced CT scan. Th ere is no significant retroperitoneal lymphadenopathy. Kidneys: The kidneys are normal in size. A punctate nonobstructive calculus measuring approximately 2 �3 mm is noted in the interpolar and lower pole calyx of the left kidney. There is a 4.8 mm calculu s in the right proximal ureter causing mild right-sided hydronephrosis and proximal hydroureter. Perc utaneous right nephrostomy is in place. Perinephric spaces are clear. Vessels: The aorta, inferior vena cava, and mesenteric vessels cannot be adequately assessed in this unenhanced CT scan. Stomach and Small Bowel: Moderate fluid-filled distension of the stomach is present. The small bowel loops appear unremarkable. No ascites is identified. Skeletal System: Degenerative changes are noted in the sacroiliac joints and superolateral hip joints . Ajqqumlt-kx-wivmlt degenerative changes are seen in the lumbar spine at the L5-S1 level with vacuum phenomena and subchondral sclerosis. There is a circumferential 5.5 mm disc osteophyte complex bulge with bilateral hypertrophic facet arthropathy. Qqftakre-nx-iezemo narrowing of the neural foramina i s present. CT Pelvis: Appendix: The appendix is visualized and appears unremarkable, measuring approximately 3 mm in diamet er. Colon and Large Bowel: Moderate amount of fecal residue is present in the large bowel loops, particul [place] within the ascending and transverse colon. Scattered diverticulosis of the descending and sigmoi d colon is noted without evidence of diverticulitis. Bladder: The urinary bladder is unremarkable. Uterus and Ovaries: The uterus and ovaries are unremarkable. No adnexal mass is identified. Lymph Nodes: No pelvic lymphadenopathy is identified. Fluid Collections: No abnormal fluid collection is seen. Hernia: An omental fat containing umbilical hernia measuring approximately 14 x 8 mm is present. IMPRESSION: 1. A 4.8 mm calculus in the right proximal ureter causes mild right-sided hydronephrosis and proxima l hydroureter. Percutaneous right nephrostomy is in place. A punctate nonobstructive calculus measuri ng about 2 to 3 mm is present in the left kidney interpolar and lower pole calyx. 2. Mild hepatomegaly with fatty infiltration of the liver is noted. Post cholecystectomy status is p resent. 3. Moderate fluid-filled distension of the stomach is seen. Moderate fecal residue is present in the large bowel loops, especially in the ascending and transverse colon. Scattered diverticulosis of the descending and sigmoid colon is present without diverticulitis. The appendix is normal measuring sharan roximately 3 mm. 4. Degenerative changes are noted in the sacroiliac joints, superolateral hip joints, and there are guleibkw-cz-apomke degenerative changes in the lumbar spine at L5-S1 including a circumferential 5.5 mm disc osteophyte complex bulge with bilateral hypertrophic facet arthropathy and mcgukmbp-mf-zzacbl narrowing of the neural foramina. Electronically Signed 07/24/2024 03:45 Sonya Murdock
== END 2024-07-24 04:13 | disposition left against medical advice (07) ==
LOC: ER 22:43
DX: N13.2 Hydronephrosis with renal and ureteral calculous obstruction (principal); E11.9 Type 2 diabetes mellitus without complications; I10 Essential (primary) hypertension; F17.210 Nicotine dependence, cigarettes, uncomplicated; Z93.6 Other artificial openings of urinary tract status; Z79.899 Other long term (current) drug therapy; Z90.49 Acquired absence of other specified parts of digestive tract; Z88.5 Allergy status to narcotic agent
CPT/HCPCS: 74176

== ENCOUNTER 2024-07-30 11:37 | Inpatient (IN) | payer MEDICAID ==
[~2024-07-30] VITALS: Ht 185.4 cm; Wt 111.0 kg
--- NOTE | 2024-07-30 12:11 | ED.PDOC ---
General HPI Comments FINAL DIAGNOSES from 07/15/24: * Sepsis with UTI. * Right renal stone with hydronephrosis, status post nephrostomy tube placement. * Diabetes mellitus. * Hypertension. * Obesity. * Hypokalemia. * Acute renal failure, questionable vasomotor nephropathy. HPI: 49-year-old female presents to the emergency department via EMS with a chief complaint of RT flank pain onset 2 days. Patient states she was discharged from [facility] on 07/15/[address] with neph[address] tube in place, was told she will have kidney stent placed on 08/06/24. She was discharged with Cromwell p.r.n. for pain, Colace p.r.n. for constipation, and Ceftin 300 mg p.o. b.i.d. for seven days.For the past 2 days, patient has been experiencing a pulling sensation around nephrostomy tube, concerned for possible infection. Denies fever, chills, nausea, vomiting, diarrhea, headache, dizziness. No other symptoms or modifying factors present at this time. Initial Vitals BP: 146/90 HR: 114 RR: 20 O2 Sat: 97% Temp: 98.4 F Past Medical history: DM, HTN, kidney stones, IN, GERD Past Surgical history: cholecystectomy, nephrostomy Medications: metformin, Ozempic, Enalapril Social History: Marijuana Allergies: NKDA HPI: Poor Historian. REVIEW OF SYSTEMS: CONSTITUTIONAL: Denies acute: fever, diaphoresis, chills, HEAD: Denies acute: headache, photophobia Eyes: Denies acute: Double vision, vision loss, eye pain, eye discharge. EARS: Denies acute: tinnitus, hearing loss, ear discharge, ear pain, THROAT: Denies acute: sore throat, swelling, difficulty swallowing , pain with swallowing, change in voice. NECK: Denies acute: neck pain, neck swelling, stiff neck. HEART: Denies acute : chest pain, palpitations, LUNGS: Denies acute: SOB, wheezing, cough, hemoptysis ABDOMEN: Denies acute: abdominal pain, Nausea, Vomiting, diarrhea, melena , hematemesis, hematochezia SKIN: Denies acute: rash, redness, lesions, itchiness. EXTREMITIES: Denies acute: calf pain, numbness, tingling, weakness, denies pain in extremity. Denies acute: Low back pain. Neuro: Denies acute: focal neurological deficit, motor or sensory focal neurological deficit, tremors, seizure like activity, confusion, dizziness, change in mental status, loss of bowel or bladder function, cauda equina like symptoms. : Denies acute: dysuria, hematuria, increase in urinary frequency. PSYCH: Denies acute: hallucination, suicidal ideation, homicidal ideation. FEMALE: Denies acute: abnormal vaginal bleeding, foul odor, unusual discharge. PHYSICAL EXAM: General: ---iirs-hy-azlbgelh----acute distress, awake and alert. Head: normocephalic, atraumatic. Neck: supple, trachea is midline, no swelling. Throat: Normal phonation. Eyes:, no erythema, no purulent discharge, no proptosis, no icterus. Heart: regular tachycardia, no significant murmur appreciated. Lungs: no apparent respiratory distress, Able to speak in full sentences. No wheezing, no rhonchi, no crackles. No stridors Clear to auscultation bilaterally. Abdomen: non tender to palpation, non distended, soft, no guarding, no rebound, + bowel sounds. Neuro: Awake, Alert, oriented to name, self, situation, follows commands GCS=15. Speech is normal. Skin: no petechia, no purpura, no cyanosis, non-pale, not jaundice. Lower extremities: --no - Pitting edema no deformity, no focal swelling, no calf TTP. Makes eye contact. moves all four extremities. Face: no apparent facial droop. Right CVA tenderness to percussion noted right nephrostomy tube in place. No erythema surrounding the insertion site. No swelling. Urine is normal in color in the nephrostomy bag. ED COURSE: DISCLAIMER: This medical document was created using an electronic medical record system with voice recognition software and computerized dictation system. Although this document has been carefully reviewed, there might still be some phonetic and typographical errors. Occasional wrong-word or "sound-alike" substitutions may have occurred due to the inherent limitations of voice recognition software. These areas are purely typographical due to imperfections of the software programs and do not reflect any compromise in the patient's medical care. Please read the chart carefully and recognize, using context, where these substitutions have occurred. Chief Complaint: Flank Pain Time Seen by MD: 11:20 Primary Care Provider: Dr. Heart Reviewed notes: Medications, Allergies Allergies: Coded Allergies: Amlodipine (Verified Allergy, Severe, 10/08/23) Gabapentin (Verified Allergy, Severe, 10/08/23) Tramadol (Verified Allergy, Severe, 10/08/23) Home Meds Active Scripts Cefdinir (Cefdinir) 300 Mg Cap, 300 MG PO BID for 7 Days, #14 CAP Prov:KAYKAY MARINA MD 07/15/24 Docusate Sodium (Colace) 100 Mg Cap, 100 MG PO BIDPRN PRN for 30 Days, #50 CAP Prov:KAYKAY MARINA MD 07/15/24 Hydrocodone-Acetaminophen (Hydrocodone/Acetaminophen 5-325 mg) 1 Tab Tab, 1 TAB PO TIDP PRN for 8 Days, #24 TAB Prov:KAYKAY MARINA MD 07/15/24 Tamsulosin Hcl (Tamsulosin Hcl) 0.4 Mg Cap, 1 CAP PO DAILY, #30 CAP 5 Refills Prov:GABO BUNDY DO 10/08/23 Enalapril Maleate (Enalapril Maleate) 20 Mg Tab, 1 TAB PO DAILY, #30 TAB 1 Refill Prov:GABO BUNDY DO 10/08/23 Hydrocodone-Acetaminophen (Hydrocodone Bitartrate/AC 5-325 mg) 1 Tab Tab, 1 TAB PO Q8HP PRN for 7 Days, #21 TAB Prov:MARLEN DEWEY MD 06/30/23 Ciprofloxacin Hcl (Cipro) 500 Mg Tab, 1 TAB PO BID, #14 TAB Prov:MARLEN DEWEY MD 06/30/23 Tramadol Hcl (Tramadol Hcl) 50 Mg Tab, 50 MG PO Q8HP PRN for 5 Days, #15 TAB Prov:MARLEN DEWEY MD 06/30/23 Tamsulosin Hcl (Tamsulosin Hcl) 0.4 Mg Cap, 1 CAP PO DAILY, #30 CAP 5 Refills Prov:CARMELLA GARRISON 05/06/23 Hydrocodone-Acetaminophen (Hydrocodone Bitartrate/AC 10-325 mg) 1 Tab Tab, 1 TAB PO Q6HPRN PRN, #15 TAB Prov:CARMELLA GARRISON JOÃO PAC 05/06/23 Sulfamethoxazole W/Trimethopri (Bactrim Ds Tablet) 1 Tab Tb, 1 TAB PO BID for 5 Days, #10 TAB Prov:CARMELLA GARRISON JOÃO PAC 05/06/23 Pantoprazole Sodium Sesquihydr (Protonix) 40 Mg Tab, 40 MG PO DAILY for 20 Days, #20 TAB Prov:MARK FIGUEROA MD 04/20/23 Potassium Chloride (Klor-Con M20) 20 Meq Tab, 20 MEQ PO DAILY for 30 Days, #30 TAB 0 Refills Prov:TOREY GARRISON MD 08/13/19 Reported Medications Empagliflozin (Jardiance) 25 Mg Tab, 1 TAB PO 07/30/24 Furosemide (Furosemide) 20 Mg Tab, 1 TAB PO DAILY 07/30/24 Hctz (Hydrochlorothiazide) 25 Mg Tab, 25 MG PO DAILY, TAB 08/08/19 Information Source: Patient, Emergency Med Personnel Mode of Arrival: EMS Severity: Moderate Timing: Days Duration: Since onset Prehospital treatment: None Onset: Spontaneous Symptoms: Other Location: (R) Flank Modifying factors: None associated signs and symptoms: Flank Pain Past Medical History PAST MEDICAL HISTORY: DM, GERD, HTN, Kidney Stones, IN Surgical History: Cholecystectomy HOSPITAL EDUCATOR History: No Pertinent HOSPITAL EDUCATOR History, Other Family History Family History: Reviewed,noncontributory to illness, Unknown Social History Smoker: Cigarettes Alcohol: Rarely Drugs: Marijuana Lives In: Home Was a procedure done? Was a procedure done?: No Differential Diagnosis Kidney stone (Female): Musculoskeletal pain, Pyelonephritis, Renal failure, Urolithiasis, Other (Flank Pain;DDX include Nephrolethiasis, obstructive uropathy, kidney cancer, renal infarct, intraabdominal neoplasm, lower lobe pneumonia, retroperitoneal hemorrhage, pancreatitis, aneurysm, dissection, musculoskeletal, rib contusion/trauma, hematoma, PYLONEPHRITIS, muscle strain, spinal disease. ), N/A X-Ray, Labs, Meds, VS Vital Signs Date Time Temp Pulse Resp B/P (MAP) Pulse Ox O2 Delivery O2 Flow Rate FiO2 07/30/24 12:45 104 18 98 Room Air 07/30/24 12:45 98.7 104 16 185/111 (135) 98 98.7 07/30/24 11:44 98.4 114 20 146/90 (108) 97 98.4 Lab Test 07/30/24 13:07 Range/Units White Blood Count 6.4 4.4-10.8 10^3/uL Red Blood Count 5.80 H 4.0-5.20 10^6/uL Hemoglobin 15.7 12.2-16.2 g/dL Hematocrit 47.2 H 36.0-46.0 % Mean Corpuscular Volume 81.4 80.0-100.0 fL Mean Corpuscular Hemoglobin 27.0 L 28.0-32.0 pg Mean Corpuscular Hemoglobin Concent 33.2 32.0-36.0 g/dL Red Cell Distribution Width 15.4 H 11.8-14.3 % Platelet Count 353 140-450 10^3/uL Mean Platelet Volume 9.2 6.9-10.8 fL Neutrophils (%) (Auto) 56.1 37.0-80.0 % Lymphocytes (%) (Auto) 33.7 10.0-50.0 % Monocytes (%) (Auto) 7.2 0.0-12.0 % Eosinophils (%) (Auto) 2.0 0.0-7.0 % Basophils (%) (Auto) 1.0 0.0-2.0 % Neutrophils # (Auto) 3.6 1.6-8.6 10 ^3/uL Lymphocytes # (Auto) 2.2 0.4-5.4 10 ^3/uL Monocytes # (Auto) 0.5 0-1.3 10 ^3/uL Eosinophils # (Auto) 0.1 0-0.8 10 ^3/uL Basophils # (Auto) 0.1 0-0.2 10 ^3/uL Nucleated Red Blood Cells 0.1 % Prothrombin Time 11.1 9.3-11.8 sec Prothrombin Time INR 1.05 0.9-1.15 Activated Partial Thromboplast Time 29.2 24.5-34.5 SEC Sodium Level 141 136-145 mmol/L Potassium Level 3.4 L 3.5-5.1 mmol/L Chloride Level 104 98-107 mmol/L Carbon Dioxide Level 26 20-31 mmol/L Anion Gap 11 5-15 Blood Urea Nitrogen 8 L 9-23 mg/dL Creatinine 1.11 H 0.550-1.02 mg/dL Glomerular Filtration Rate Calc 60 >90 mL/min BUN/Creatinine Ratio 7.2 L 10.0-20.0 Serum Glucose 108 H 74-106 mg/dL Lactic Acid Level 1.5 0.4-2.0 mmol/L Calcium Level 10.8 H 8.7-10.4 mg/dL Total Bilirubin 0.4 0.2-1.0 mg/dL Aspartate Amino Transferase (AST) 15 <34 U/L Alanine Aminotransferase (ALT) 14 7-40 U/L Alkaline Phosphatase 158 H 46-116 U/L Total Protein 8.3 H 5.7-8.2 g/dL Albumin 4.5 3.2-4.8 g/dL Current Medications Medications (Trade) Dose Ordered Sig/Yarelis Route Start Time Stop Time Status Last Admin Sodium Chloride 1,000 ml @ 1,000 mls/hr Q1H ONCE IV 07/30/24 12:00 07/30/24 12:59 DC 07/30/24 12:39 Ceftriaxone Sodium 50 ml @ 100 mls/hr ONCE ONCE IV 07/30/24 12:00 07/30/24 12:29 DC 07/30/24 12:49 Ondansetron HCl (Zofran) 8 mg ONCE ONCE IV 07/30/24 12:45 07/30/24 12:46 DC 07/30/24 12:49 [place] [id number] Ph: [phone] DIAGNOSTIC IMAGING Diagnostic Imaging Report : [id number] Signed PATIENT: GEO ACCT: [id number] UNIT: [id number] : 1975 LOC: ER ROOM / BED: / AGE / SEX: 49 / F ADM STATUS: REG ER SERVICE [id number] ORDERING PHYSICIAN: GABO BUNDY DO PROCEDURE(s): ABPL - CT AB PEL WO CON-NO ORAL OR IV REASON: FLANK PAIN, POSS SEPSIS, NEPHROSTOMY TUBE PROBLEM ORDER NUMBER(s): [id number], ACCESSION NUMBER(s): [id number] CT CT AB PEL WO CON-NO ORAL OR IV INDICATION: FLANK PAIN, POSS SEPSIS, NEPHROSTOMY TUBE PROBLEM EXAM DATE: 07/30/2024 11:59 AM COMPARISON: CT CT AB PEL WO CON-NO ORAL OR IV on DOS: 07/24/24, CT CT AB PEL WO CON-NO ORAL OR IV on DOS: 06/30/23, CT ABD PELVIS WO CONTRAST on DOS: 08/08/19 RADIATION DOSE: CTDIvol: 22.43 mGy, DLP: 1235.06 mGy*cm PROCEDURE: Helical CT images were obtained of the abdomen and pelvis without IV contrast Sagittal and coronal reconstructions are provided. ORAL CONTRAST: None. ADDITIONAL IMAGES / REFORMATS: None All CT scans at this medical facility are performed using dose modulation techniques as appropriate to a performed exam including the following: Automated exposure control was utilized; adjustment of the MA and/or KV according to patient size; and use of iterative reconstruction technique. FINDINGS: LUNG BASE: Normal. LIVER: Normal. GALLBLADDER AND BILIARY TREE: No calcified gallstones. Normal caliber wall. No intra- or extrahepatic biliary ductal dilation. PANCREAS: Normal. SPLEEN: Normal. BOWEL: Normal. Normal appendix. ADRENALS: Normal. KIDNEYS AND URETER: Right nephrostomy tube has been retracted and is partially out of the kidney. The right proximal ureteral stone is in the same position as prior CT. Punctate nonobstructive left kidney stones are seen. BLADDER: Normal. REPRODUCTIVE ORGANS: Normal. LYMPH NODES:No lymphadenopathy. PERITONEUM: No ascites or free air. No other fluid collection. VESSELS: Scattered atherosclerotic calcifications are noted. RETROPERITONEUM: Normal. ABDOMINAL WALL: Normal. BONES: Scattered osseous degenerative changes are noted. IMPRESSION: Right nephrostomy tube has been retracted and is partially out of the kidney. Consider repositioning. The right proximal ureteral stone is in the same position as prior CT. ATED BY: LUKAS REYES MD DICTATED DATE/TIME: 07/30/24 1245 SIGNED BY: LUKAS REYES MD SIGNED DATE/TIME: 07/30/24 1245 CC: Time of 1ST Reevaluation: 11:50 Reevaluation 1ST: Unchanged Patient Education/Counseling: Diagnosis, Treatment Family Education/Counseling: Other Comments Patient presented with the above HPI.----right flank pain/nephrostomy tube complication--workup was initiated. patient was found with the above mentioned diagnosis. the following medications were ordered: please refer to order lists of meds and tests obtained by myself Dr. Ana. Patient ED course and VS have been stabilized. Patient has been reassessed in the ED and remained in a stable condition. Pertinent incidental findings were discussed with the patient and/or family. Patient/family voices understanding and is agreeable with plan. Patient has been observed in the ED adequate length of time to insure improvement/stability. Escalation of care considered: Consideration of escalation to observation or admission Patient was tachycardic on initial presentation. I suspected sepsis in the patient. Fluids and antibiotics initiated. Patient was ADMITTED to the medicine team for further evaluation and treatment of their presentation. All the reports of any imaging studies that were ordered by myself were reviewed by myself. Departure 1 Departure Time of Disposition: 12:26 Impression: Primary Impression: Sepsis Additional Impression: Nephrostomy complication Disposition: ADMITTED INPATIENT Admit to: Tele Condition: Guarded Discharged With: Self Critical Care Note Critical Care Time?: No Heart Score Heart Score: Heart Score Response (Comments) Value History N/A 0 EKG N/A 0 Age N/A 0 Risk Factors N/A 0 Troponin N/A 0 Total 0 I personally scribed for GABO BUNDY DO ([email or web address]) on 07/30/24 at 12:11. Electronically submitted by Tamica Wray ([email or web address]). I personally scribed for GABO BUNDY DO ([email or web address]) on 07/30/24 at 12:23. Electronically submitted by Tamica Wray ([email or web address]). I personally scribed for GABO BUNDY DO ([email or web address]) on 07/30/24 at 13:32. Electronically submitted by Tamica Wray ([email or web address]). GABO BUNDY DO Jul 30, 2024 12:11
[2024-07-30] MEDS: SODIUM CHLORIDE 0.9% 1,000 ML IV ONE (12:39)
--- NOTE | 2024-07-30 12:47 | DVH ---
CT CT AB PEL WO CON-NO ORAL OR IV INDICATION: FLANK PAIN, POSS SEPSIS, NEPHROSTOMY TUBE PROBLEM EXAM DATE: 07/30/2024 11:59 AM COMPARISON: CT CT AB PEL WO CON-NO ORAL OR IV on DOS: 07/24/24, CT CT AB PEL WO CON-NO ORAL OR IV on D OS: 06/30/23, CT ABD PELVIS WO CONTRAST on DOS: 08/08/19 RADIATION DOSE: CTDIvol: 22.43 mGy, DLP: 1235.06 mGy*cm PROCEDURE: Helical CT images were obtained of the abdomen and pelvis without IV contrast Sagittal and coronal reconstructions are provided. ORAL CONTRAST: None. ADDITIONAL IMAGES / REFORMATS: None All C T scans at this medical facility are performed using dose modulation techniques as appropriate to a p erformed exam including the following: Automated exposure control was utilized; adjustment of the MA and/or KV according to patient size; and use of iterative reconstruction technique. FINDINGS: LUNG BASE: Normal. LIVER: Normal. GALLBLADDER AND BILIARY TREE: No calcified gallstones. Normal caliber wall. No intra- or extrahepatic biliary ductal dilation. PANCREAS: Normal. SPLEEN: Normal. BOWEL: Normal. Normal appendix. ADRENALS: Normal. KIDNEYS AND URETER: Right nephrostomy tube has been retracted and is partially out of the kidney. The right proximal ureteral stone is in the same position as prior CT. Punctate nonobstructive left kid nadine stones are seen. BLADDER: Normal. REPRODUCTIVE ORGANS: Normal. LYMPH NODES:No lymphadenopathy. PERITONEUM: No ascites or free air. No other fluid collection. VESSELS: Scattered atherosclerotic calcifications are noted. RETROPERITONEUM: Normal. ABDOMINAL WALL: Normal. BONES: Scattered osseous degenerative changes are noted. IMPRESSION: Right nephrostomy tube has been retracted and is partially out of the kidney. Consider repositioning. The right proximal ureteral stone is in the same position as prior CT.
[2024-07-30] MEDS: cefTRIAXone 1GM/50ML D5W 50 ML IV ONE (12:49)
[2024-07-30] MEDS: ONDANSETRON HCL 4 MG/2 ML VIAL IV ONE (12:49)
[2024-07-30 13:27] LABS: Basophils # (auto) 0.1 10 ^3/uL (0-0.2); Eosinophils # (auto) 0.1 10 ^3/uL (0-0.8); Hematocrit 47.2 % (36.0-46.0); Hemoglobin 15.7 g/dL (12.2-16.2); Lymphocytes # (auto) 2.2 10 ^3/uL (0.4-5.4); Lymphocytes % (auto) 33.7 % (10.0-50.0); Mean Corpuscular Hgb Conc. 33.2 g/dL (32.0-36.0); Mean Corpuscular Volume 81.4 fL (80.0-100.0); Monocytes # (auto) 0.5 10 ^3/uL (0-1.3); Monocytes % (auto) 7.2 % (0.0-12.0); Neutrophils # (auto) 3.6 10 ^3/uL (1.6-8.6); Neutrophils % (auto) 56.1 % (37.0-80.0); Nucleated Red Blood Cells % 0.1 %; Platelet Count (auto) 353 10^3/uL (140-450); Red Cell Distribution Width 15.4 % (11.8-14.3); White Blood Cell 6.4 10^3/uL (4.4-10.8)
[2024-07-30 13:39] LABS: Alanine Aminotransferase 14 U/L (7-40); Albumin 4.5 g/dL (3.2-4.8); Alkaline Phosphatase 158 U/L (46-116); Anion Gap 11 (5-15); Aspartate Aminotransferase 15 U/L (<34); BUN/Creatinine Ratio 7.2 (10.0-20.0); Bilirubin, Total 0.4 mg/dL (0.2-1.0); Blood Urea Nitrogen 8 mg/dL (9-23); Calcium 10.8 mg/dL (8.7-10.4); Carbon Dioxide 26 mmol/L (20-31); Chloride 104 mmol/L (98-107); Glucose 108 mg/dL (74-106); Potassium 3.4 mmol/L (3.5-5.1); Sodium 141 mmol/L (136-145); Total Protein 8.3 g/dL (5.7-8.2)
[2024-07-30] MEDS ORDERED: DEXTROSE (50%) 50ML SYRG IV PRN (15:00)
[2024-07-30] MEDS ORDERED: MORPHINE SULFATE INJ 2 MG/ml SYRG IV PRN (15:00)
[2024-07-30] MEDS ORDERED: ACETAMINOPHEN 325 MG TAB PO PRN (15:00)
[2024-07-30] MEDS ORDERED: EMPA1TAB3 PO (15:05)
[2024-07-30] MEDS ORDERED: FURO20TA4 PO (15:05)
--- NOTE | 2024-07-30 15:09 | DVHHP2 ---
History of Present Illness Reason for Visit: Right flank pain History of Present Illness Juanito May is a 49-year-old female with past medical history of hypertension, diabetes, [place], kidney stones, kidney cysts, cholecystectomy, and nephrostomy who presents to the ED with right flank pain and headache x2 days. Patient states that she was here had her nephrostomy placed for her kidney stones on July 15 in his supposed to come back on the 06 of August to have a kidney stent placed in. She states that the pain is 10/10 tearing like and constant. Patient states that there are no triggering or alleviating factors. She states that she lives at home with her mom. She also endorses that she smokes half a pack of cigarettes per day quit drinking, and uses marijuana. Patient denies any chest pain, shortness of breath, fever, chills, lightheadedness, weakness, dizziness, recent trauma or injury, recent sick contacts, recent travels, recent ingestion of spoiled food, abdominal pain, nausea or diarrhea. Cardiovascular: HTN, MO Endocrine: Diabetes Past Medical History Kidney stones Kidney cysts Past Surgical History: Cholecystectomy, Other (Nephrostomy) Family History: None Smoke: <1 pack per day ALCOHOL: rare (Quit) Drugs: Marijuana Lives: with Family Domestic Violence: Neg Review of Systems Constitutional: Yes: Other (Headache) Musculoskeletal: other (Right flank pain) Allergies: Coded Allergies: Amlodipine (Verified Allergy, Severe, 10/08/23) Gabapentin (Verified Allergy, Severe, 10/08/23) Tramadol (Verified Allergy, Severe, 10/08/23) Medications Current Medications Medications Dose Ordered Sig/Yarelis Route Start Time Stop Time Status Last Admin Dose Admin Acetaminophen/ Hydrocodone Bitart 1 tab Q4HP PRN PO 07/30/24 15:00 UNV Ondansetron HCl 4 mg Q4HP PRN IV 07/30/24 15:00 UNV Acetaminophen 650 mg Q6HP PRN PO 07/30/24 15:00 UNV Morphine Sulfate 2 mg Q4HPRN PRN IV 07/30/24 15:00 UNV Diagnostic Test (Pha) 1 strip ACHS 07/30/24 17:00 UNV Insulin Human Regular ACHS SC 07/30/24 17:00 UNV Dextrose 50 ml UD PRN IV 07/30/24 15:00 UNV Exam Vital Signs Vital Signs Date Time Temp Pulse Resp B/P (MAP) Pulse Ox O2 Delivery O2 Flow Rate FiO2 07/30/24 12:45 104 18 98 Room Air 07/30/24 12:45 98.7 185/111 (135) 98.7 General Appearance: Alert, Oriented X3, Cooperative, No acute distress HEENT: Atraumatic, PERRLA, EOMI, Mucous membr. moist/pink Respiratory: Clear to auscultation, Normal air movement Cardiovascular: Normal S1, Normal S2 Abdominal: Normal bowel sounds, Soft Extremities: No clubbing, No cyanosis, No edema, Normal pulses Skin: No significant lesion Neuro: Normal speech, Strength at 5/5 X4 ext, Normal tone, Sensation intact Psych/Mental Status: Mental status NL, Mood NL Labs/Xrays Labs Test 07/30/24 13:07 Range/Units White Blood Count 6.4 4.4-10.8 10^3/uL Red Blood Count 5.80 H 4.0-5.20 10^6/uL Hemoglobin 15.7 12.2-16.2 g/dL Hematocrit 47.2 H 36.0-46.0 % Mean Corpuscular Volume 81.4 80.0-100.0 fL Mean Corpuscular Hemoglobin 27.0 L 28.0-32.0 pg Mean Corpuscular Hemoglobin Concent 33.2 32.0-36.0 g/dL Red Cell Distribution Width 15.4 H 11.8-14.3 % Platelet Count 353 140-450 10^3/uL Mean Platelet Volume 9.2 6.9-10.8 fL Neutrophils (%) (Auto) 56.1 37.0-80.0 % Lymphocytes (%) (Auto) 33.7 10.0-50.0 % Monocytes (%) (Auto) 7.2 0.0-12.0 % Eosinophils (%) (Auto) 2.0 0.0-7.0 % Basophils (%) (Auto) 1.0 0.0-2.0 % Neutrophils # (Auto) 3.6 1.6-8.6 10 ^3/uL Lymphocytes # (Auto) 2.2 0.4-5.4 10 ^3/uL Monocytes # (Auto) 0.5 0-1.3 10 ^3/uL Eosinophils # (Auto) 0.1 0-0.8 10 ^3/uL Basophils # (Auto) 0.1 0-0.2 10 ^3/uL Nucleated Red Blood Cells 0.1 % Sodium Level 141 136-145 mmol/L Potassium Level 3.4 L 3.5-5.1 mmol/L Chloride Level 104 98-107 mmol/L Carbon Dioxide Level 26 20-31 mmol/L Anion Gap 11 5-15 Blood Urea Nitrogen 8 L 9-23 mg/dL Creatinine 1.11 H 0.550-1.02 mg/dL Glomerular Filtration Rate Calc 60 >90 mL/min BUN/Creatinine Ratio 7.2 L 10.0-20.0 Serum Glucose 108 H 74-106 mg/dL Lactic Acid Level 1.5 0.4-2.0 mmol/L Calcium Level 10.8 H 8.7-10.4 mg/dL Total Bilirubin 0.4 0.2-1.0 mg/dL Aspartate Amino Transferase (AST) 15 <34 U/L Alanine Aminotransferase (ALT) 14 7-40 U/L Alkaline Phosphatase 158 H 46-116 U/L Total Protein 8.3 H 5.7-8.2 g/dL Albumin 4.5 3.2-4.8 g/dL CT CT AB PEL WO CON-NO ORAL OR IV INDICATION: FLANK PAIN, POSS SEPSIS, NEPHROSTOMY TUBE PROBLEM EXAM DATE: 07/30/2024 11:59 AM COMPARISON: CT CT AB PEL WO CON-NO ORAL OR IV on DOS: 07/24/24, CT CT AB PEL WO CON-NO ORAL OR IV on DOS: 06/30/23, CT ABD PELVIS WO CONTRAST on DOS: 08/08/19 RADIATION DOSE: CTDIvol: 22.43 mGy, DLP: 1235.06 mGy*cm PROCEDURE: Helical CT images were obtained of the abdomen and pelvis without IV contrast Sagittal and coronal reconstructions are provided. ORAL CONTRAST: None. ADDITIONAL IMAGES / REFORMATS: None All CT scans at this medical facility are performed using dose modulation techniques as appropriate to a performed exam including the following: Automated exposure control was utilized; adjustment of the MA and/or KV according to patient size; and use of iterative reconstruction technique. FINDINGS: LUNG BASE: Normal. LIVER: Normal. GALLBLADDER AND BILIARY TREE: No calcified gallstones. Normal caliber wall. No intra- or extrahepatic biliary ductal dilation. PANCREAS: Normal. SPLEEN: Normal. BOWEL: Normal. Normal appendix. ADRENALS: Normal. KIDNEYS AND URETER: Right nephrostomy tube has been retracted and is partially out of the kidney. The right proximal ureteral stone is in the same position as prior CT. Punctate nonobstructive left kidney stones are seen. BLADDER: Normal. REPRODUCTIVE ORGANS: Normal. LYMPH NODES:No lymphadenopathy. PERITONEUM: No ascites or free air. No other fluid collection. VESSELS: Scattered atherosclerotic calcifications are noted. RETROPERITONEUM: Normal. ABDOMINAL WALL: Normal. BONES: Scattered osseous degenerative changes are noted. IMPRESSION: Right nephrostomy tube has been retracted and is partially out of the kidney. Consider repositioning. The right proximal ureteral stone is in the same position as prior CT. Assessment/Plan Assessment/Plan Assessment Intractable right flank pain likely due to retracted right nephrostomy Hypertensive urgency Hypokalemia JYOTSNA Intractable headache Obesity Tobacco use Marijuana use Ex alcohol use History of hypertension History of diabetes type 2 History of MO History of kidney stones status post right nephrostomy History of kidney cysts History of cholecystectomy Plan Admit to [facility] IV antibiotics-ceftriaxone Antiemetics Pain management Blood cultures CT abdomen and pelvis noted EKG UA Lactic level Hemoglobin A1c ISS and Accu-Cheks UDS Diet after radiology Home medications reconciled DVT prophylaxis-not indicated patient ambulating PUD prophylaxis-patient on PPIs Discussed plan of care with patient and nurse Radiology consult Counseled patient on lifestyle modifications, diet, and exercise Counseled patient on cessation of tobacco and marijuana use and continuance of cessation of alcohol use Plan discussed with: Patient My Orders Orders - KRYSTINA ZUNIGA REGULATORY SCIENTIST Procedure Category Date Status Time * Radiologist Consult CONS 07/30/24 Transmitted 14:59 Potassium Er Tablet PHA 07/30/24 Logged (Klor-Con Tablet) 15:00 Admit ADMIT 07/30/24 Transmitted 14:59 Allergies LILY 07/30/24 In Process 14:59 Code Status CODE 07/30/24 Transmitted 14:59 Hydrocodone-Acet PHA 07/30/24 Logged 5/325mg Tab ([place] 15:00 Ondansetron Hcl PHA 07/30/24 Logged (Zofran) 15:00 Complete Blood Count LAB 07/31/24 Verified 04:00 Comprehensive LAB 07/31/24 Verified Metabolic Panel 04:00 Acetaminophen Tablet PHA 07/30/24 Logged (Tylenol Tablet) 15:00 Morphine Sulfate PHA 07/30/24 Logged Injection 15:00 Sequential LILY 07/30/24 In Process Compression Device Glucose Blood PHA 07/30/24 Logged (Accu-Chek Comfort 17:00 Insulin R (Human) PHA 07/30/24 Logged (Insulin R) 17:00 Dextrose 50% Syringe PHA 07/30/24 Logged 15:00 Consistent DIET 07/31/24 Transmitted Carb(Ccho)Diabetes Breakfast Drug Screen LAB 07/30/24 Logged 15:04 Hydrochlorothiazide PHA 07/31/24 Verified Tablet (Hydrochlorot 10:00 Pantoprazole Tablet PHA 07/31/24 Verified (Protonix Tablet) 10:00 Tamsulosin PHA 07/31/24 Verified Hydrochloride (Flomax) 10:00 (Nf) Enalapril Maleate PHA 07/31/24 Verified 10:00 Date of Service: Jul 30, 2024 Billing Provider: KRYSTINA ZUNIGA Common Visit Codes: [id number] INP/OBS CARE (HIGH) KRYTSINA ZUNIGA Jul 30, 2024 15:09
[2024-07-30] MEDS: ONDANSETRON HCL 4 MG/2 ML VIAL IV PRN (15:14)
[2024-07-30] MEDS: POTASSIUM CHL 20 Meq TABLET PO ONE (15:14)
[2024-07-30] MEDS: MORPHINE SULFATE 4 MG/ML SYR/VIAL IV PRN (15:38)
[2024-07-30 15:52] LABS: INR 1.05 (0.9-1.15); Partial Thromboplastin Time 29.2 SEC (24.5-34.5); Prothrombin Time 11.1 sec (9.3-11.8)
[2024-07-30] MEDS: hydrALAZINE HCL 20 MG/ML VL IV ONE (16:06)
[2024-07-30] MEDS: cloNIDine HCL 0.1 MG TAB PO ONE (16:30)
[2024-07-30] MEDS: InsuLIN REG 1unit/0.01ml Soln (100units/ml) SC SCH (16:36)
[2024-07-30] MEDS: ACCU-CHEK COMFORT CURVE STRIP VI SCH (16:36)
[2024-07-30] MEDS ORDERED: hydrALAZINE HCL 20 MG/ML VL IV PRN (18:00)
[2024-07-30] MEDS: HYDROmorphone HCL 2 MG/ML VL/or syr IV ONE (18:01)
[2024-07-30] MEDS: HYDROmorphone HCL 2 MG/ML VL/or syr IV PRN (22:14)
[2024-07-31] VITALS (7 sets, daily range): BP systolic 109–176; BP diastolic 77–95; PULSE 52–87; RESP 14–20; TEMP 97.1–98.4; O2SAT 95–100
[2024-07-31 06:55] LABS: Alanine Aminotransferase 11 U/L (7-40); Anion Gap 10 (5-15); Aspartate Aminotransferase 13 U/L (<34); BUN/Creatinine Ratio 9.3 (10.0-20.0); Bilirubin, Total 0.3 mg/dL (0.2-1.0); Blood Urea Nitrogen 10 mg/dL (9-23); Calcium 10.1 mg/dL (8.7-10.4); Carbon Dioxide 29 mmol/L (20-31); Chloride 102 mmol/L (98-107); Glucose 99 mg/dL (74-106); Sodium 141 mmol/L (136-145); Total Protein 7.1 g/dL (5.7-8.2)
[2024-07-31 06:58] LABS: Basophils # (auto) 0 10 ^3/uL (0-0.2); Basophils % (auto) 0.4 % (0.0-2.0); Eosinophils # (auto) 0.1 10 ^3/uL (0-0.8); Eosinophils % (auto) 1.2 % (0.0-7.0); Hematocrit 41.4 % (36.0-46.0); Hemoglobin 13.8 g/dL (12.2-16.2); Lymphocytes % (auto) 22.9 % (10.0-50.0); Mean Corpuscular Hemoglobin 27.2 pg (28.0-32.0); Mean Corpuscular Hgb Conc. 33.4 g/dL (32.0-36.0); Mean Corpuscular Volume 81.6 fL (80.0-100.0); Monocytes # (auto) 0.8 10 ^3/uL (0-1.3); Monocytes % (auto) 9.1 % (0.0-12.0); Neutrophils # (auto) 5.8 10 ^3/uL (1.6-8.6); Neutrophils % (auto) 66.4 % (37.0-80.0); Platelet Count (auto) 327 10^3/uL (140-450); Red Blood Cells 5.08 10^6/uL (4.0-5.20); Red Cell Distribution Width 15.6 % (11.8-14.3); White Blood Cell 8.8 10^3/uL (4.4-10.8)
[2024-07-31 06:59] LABS: Alkaline Phosphatase 132 U/L (46-116)
[2024-07-31] MEDS: cefTRIAXone 1GM/50ML D5W 50 ML IV SCH (08:28)
[2024-07-31] MEDS: TAMSULOSIN HYDROCHLORIDE 0.4 MG CAP PO SCH (08:38)
[2024-07-31] MEDS: PANTOPRAZOLE 40 MG TAB PO SCH (08:38)
[2024-07-31] MEDS: hydroCHLOROthiazide 25 MG TAB PO SCH (08:38)
[2024-07-31] MEDS ORDERED: PATIENTS OWN MEDICATION (Enalapril Maleate 1 TAB) PO SCH (10:00)
[2024-07-31 11:11] LABS: Urine Bacteria MANY /hpf (None Seen); Urine Blood 2+ /uL (Negative); Urine Clarity Turbid (Clear); Urine Color Light-Orange (Yellow); Urine Mucus MODERATE (None Seen); Urine Protein, UAD 1+ (Negative); Urine Specific Gravity 1.019 (1.001-1.035); Urine Squamous Epithelial Cell FEW /hpf (<5); Urine Urobilinogen Normal (Negative); Urine WBC 390 /HPF (0-5)
[2024-07-31 11:16] LABS: Cannabinoid Screen, Urine Pos (NEGATIVE); Opiate Scree,Urine Neg (NEGATIVE)
[2024-07-31 11:18] LABS: Amphetamine Screen, Urine Pos (NEGATIVE); Barbiturate Scree,Urine Neg (NEGATIVE); Benzodiazephine Screen, Urine Neg (NEGATIVE); Cocaine Screen, Urine Neg (NEGATIVE); Phencyclidine Screen, Urine Neg (NEGATIVE)
--- NOTE | 2024-07-31 19:20 | DVHPN2 ---
Subjective I am assuming the care of the patient from today onwards who was under the care of the hospitalist team. Detailed sign out obtained. Reviewed: Care Plan Changes from previous H/P or p: No Changes Musculoskeletal: other (Right flank pain) Objective Vitals Vital Signs Date Time Temp Pulse Resp B/P (MAP) Pulse Ox O2 Delivery O2 Flow Rate FiO2 07/31/24 17:20 97.1 66 20 136/77 (96) 98 97.1 07/31/24 17:05 Room Air* 0 21 Intake/Output Intake and Output 07/31/24 07:00 Intake Total 100 ml Balance 100 ml Intake Oral 100 ml # Voids 1 Exam HEENT pupils are reactive Neck is supple CV is S1-S2 regular rate and rhythm Respiratory are clear GI positive bowel sound Extremity no edema TOOL/DIE MAKER no motor deficit Medications Current Medications Medications Dose Ordered Sig/Yarelis Route Start Time Stop Time Status Last Admin Dose Admin Acetaminophen/ Hydrocodone Bitart 1 tab Q4HP PRN PO 07/30/24 15:00 Ondansetron HCl 4 mg Q4HP PRN IV 07/30/24 15:00 07/30/24 15:14 4 MG Acetaminophen 650 mg Q6HP PRN PO 07/30/24 15:00 Morphine Sulfate 2 mg Q4HPRN PRN IV 07/30/24 15:00 UNV Diagnostic Test (Pha) 1 strip ACHS 07/30/24 17:00 07/31/24 17:00 1 STRIP Insulin Human Regular ACHS SC 07/30/24 17:00 Dextrose 50 ml UD PRN IV 07/30/24 15:00 Hydrochlorothiazide 25 mg DAILY PO 07/31/24 10:00 07/31/24 08:38 25 MG Pantoprazole Sodium 40 mg DAILY PO 07/31/24 10:00 07/31/24 08:38 40 MG Tamsulosin HCl 0.4 mg DAILY PO 07/31/24 10:00 07/31/24 08:38 0.4 MG Patient Own Medication 1 tab DAILY PO 07/31/24 10:00 UNV Ceftriaxone Sodium 50 ml @ 100 mls/hr DAILY@09 IV 07/31/24 09:00 07/31/24 08:28 100 MLS/HR Hydralazine HCl 10 mg Q6HP PRN IV 07/30/24 18:00 Hydromorphone HCl 0.5 mg Q4HPRN PRN IV 07/30/24 21:00 07/31/24 15:45 0.5 MG Laboratory Results Laboratory Tests 07/31/24 06:03 Chemistry Test 07/31/24 06:03 Albumin 4.0 g/dL (3.2-4.8) Calcium Level 10.1 mg/dL (8.7-10.4) Total Protein 7.1 g/dL (5.7-8.2) LFT Test 07/31/24 06:03 Alanine Aminotransferase (ALT) 11 U/L (7-40) Alkaline Phosphatase 132 U/L (46-116) H Aspartate Amino Transferase (AST) 13 U/L (<34) Total Bilirubin 0.3 mg/dL (0.2-1.0) Urinalysis Test 07/31/24 10:30 Urine Color Light-orange (Yellow) Urine Clarity Turbid (Clear) H Urine pH 6.0 (5.0-9.0) Urine Specific [place] 1.019 (1.001-1.035) Urine Protein 1+ (Negative) H Urine Ketones Trace (Negative) Urine Blood 2+ /uL (Negative) H Urine Nitrite Negative (Negative) Urine Bilirubin Negative (Negative) Urine Urobilinogen Normal mg/dL (Negative) Urine Leukocyte Esterase 3+ /uL (Negative) Urine RBC 23 /hpf (0 - 4) Urine Microscopic WBC 390 /HPF (0-5) H Urine Squamous Epithelial Cells Few /hpf (<5) Urine Bacteria Many /hpf (None Seen) H Urine Mucus Moderate (None Seen) Urine Glucose Normal mg/dL (Normal) Microbiology Microbiology Date/Time Source Procedure Growth Status 07/30/24 13:07 Blood Blood Culture - Preliminary NO GROWTH AFTER 24 HOURS OF INCUBATION. Resulted Assessment/Plan Assessment/Plan 49-year-old female with a known history of hypertension, chronic tobacco use disorder, chronic marijuana use, chronic alcoholism, diabetes mellitus type 2, history of recurrent kidney stone status post right nephrostomy tube placement presented to the hospital with a right flank pain found to have 1. Malfunctioning right nephrostomy tube 2. Right ureteric stone 3. Hypertension 4. Diabetes mellitus type 2 5. Chronic alcoholism 6. Chronic marijuana use 7. Chronic tobacco use disorder 8. Morbid obesity classI -pain meds as needed urology consultation m Plan discussed with: Patient My Orders Orders - TERELL FARAH MD Procedure Category Date Status Time * Urology Consult CONS 07/31/24 Transmitted 16:39 Date of Service: Jul 31, 2024 Billing Provider: TERELL FARAH MD Common Visit Codes: [id number] INP/OBS CARE(MOD) TERELL FARAH MD Jul 31, 2024 19:20
[2024-08-01] VITALS (7 sets, daily range): BP systolic 111–140; BP diastolic 68–84; PULSE 61–85; RESP 17–21; TEMP 96.5–98; O2SAT 92–98
--- NOTE | 2024-08-01 16:22 | DVHPN2 ---
Subjective Patient denies any complaints. Reviewed: Care Plan Changes from previous H/P or p: No Changes Musculoskeletal: other (Right flank pain) Objective Vitals Vital Signs Date Time Temp Pulse Resp B/P (MAP) Pulse Ox O2 Delivery O2 Flow Rate FiO2 08/01/24 12:36 98.0 66 21 135/84 (101) 97 98.0 08/01/24 08:00 Room Air* 0 21 Intake/Output Intake and Output 08/01/24 07:00 Intake Total 650 ml Output Total 225 ml Balance 425 ml Intake Oral 600 ml IV Total 50 ml Output Other 225 ml # Voids 2 Medications Current Medications Medications Dose Ordered Sig/Yarelis Route Start Time Stop Time Status Last Admin Dose Admin Acetaminophen/ Hydrocodone Bitart 1 tab Q4HP PRN PO 07/30/24 15:00 Ondansetron HCl 4 mg Q4HP PRN IV 07/30/24 15:00 07/30/24 15:14 4 MG Acetaminophen 650 mg Q6HP PRN PO 07/30/24 15:00 Morphine Sulfate 2 mg Q4HPRN PRN IV 07/30/24 15:00 UNV Diagnostic Test (Pha) 1 strip ACHS 07/30/24 17:00 08/01/24 11:46 1 STRIP Insulin Human Regular ACHS SC 07/30/24 17:00 Dextrose 50 ml UD PRN IV 07/30/24 15:00 Hydrochlorothiazide 25 mg DAILY PO 07/31/24 10:00 08/01/24 08:48 25 MG Pantoprazole Sodium 40 mg DAILY PO 07/31/24 10:00 08/01/24 08:47 40 MG Tamsulosin HCl 0.4 mg DAILY PO 07/31/24 10:00 08/01/24 08:47 0.4 MG Patient Own Medication 1 tab DAILY PO 07/31/24 10:00 UNV Ceftriaxone Sodium 50 ml @ 100 mls/hr DAILY@09 IV 07/31/24 09:00 08/01/24 08:47 100 MLS/HR Hydralazine HCl 10 mg Q6HP PRN IV 07/30/24 18:00 Hydromorphone HCl 0.5 mg Q4HPRN PRN IV 07/30/24 21:00 08/01/24 11:40 0.5 MG Laboratory Results Laboratory Tests 07/31/24 06:03 Urinalysis Test 07/31/24 10:30 Urine Color Light-orange (Yellow) Urine Clarity Turbid (Clear) H Urine pH 6.0 (5.0-9.0) Urine Specific [place] 1.019 (1.001-1.035) Urine Protein 1+ (Negative) H Urine Ketones Trace (Negative) Urine Blood 2+ /uL (Negative) H Urine Nitrite Negative (Negative) Urine Bilirubin Negative (Negative) Urine Urobilinogen Normal mg/dL (Negative) Urine Leukocyte Esterase 3+ /uL (Negative) Urine RBC 23 /hpf (0 - 4) Urine Microscopic WBC 390 /HPF (0-5) H Urine Squamous Epithelial Cells Few /hpf (<5) Urine Bacteria Many /hpf (None Seen) H Urine Mucus Moderate (None Seen) Urine Glucose Normal mg/dL (Normal) Microbiology Microbiology Date/Time Source Procedure Growth Status 07/30/24 13:07 Blood Blood Culture - Preliminary NO GROWTH AFTER 48 HOURS OF INCUBATION. Resulted Assessment/Plan Assessment/Plan 49-year-old female with a known history of hypertension, chronic tobacco use disorder, chronic marijuana use, chronic alcoholism, diabetes mellitus type 2, history of recurrent kidney stone status post right nephrostomy tube placement presented to the hospital with a right flank pain found to have 1. Malfunctioning right nephrostomy tube 2. Right ureteric stone 3. Hypertension 4. Diabetes mellitus type 2 5. Chronic alcoholism 6. Chronic marijuana use 7. Chronic tobacco use disorder 8. Morbid obesity classI -pain meds as needed urology consultation m, IR consultation for replacement of nephrostomy tube. Plan discussed with: Other My Orders Orders - TERELL FARAH MD Procedure Category Date Status Time * Urology Consult CONS 07/31/24 Transmitted 16:39 Date of Service: Aug 01, 2024 Billing Provider: TERELL FARAH MD Common Visit Codes: [id number] INP/OBS CARE(MOD) TERELL FARAH MD Aug 01, 2024 16:22
--- NOTE | 2024-08-01 22:28 | DVHINCON2 ---
Date of service: Aug 01, 2024 Referring Physician Hospitalist Reason for Consultation Right PNT in situ Right proximal ureteral stone 7 mm History of Present Illness 49-year-old female with past medical history of hypertension, diabetes, [place], kidney stones, kidney cysts, cholecystectomy, and nephrostomy who presents to the ED with right flank pain and headache x2 days. Patient states that she was here had her nephrostomy placed for her kidney stones on July 15 in his supposed to come back on the 06 of August to have a kidney stent placed in. She states that the pain is 10/10 tearing like and constant. Patient states that there are no triggering or alleviating factors. She states that she lives at home with her mom. She also endorses that she smokes half a pack of cigarettes per day quit drinking, and uses marijuana. Patient denies any chest pain, shortness of breath, fever, chills, lightheadedness, weakness, dizziness, recent trauma or injury, recent sick contacts, recent travels, recent ingestion of spoiled food, abdominal pain, nausea or diarrhea. Past Medical History Cardiovascular: HTN, [place] Endocrine: Diabetes Past Medical History Kidney stones Kidney cysts Past Surgical History Cholecystectomy, Other (Nephrostomy) Family History: Diabetes mellitus G8 MOTHER G8 FATHER Allergies: Coded Allergies: Amlodipine (Verified Allergy, Severe, 10/08/23) Gabapentin (Verified Allergy, Severe, 10/08/23) Tramadol (Verified Allergy, Severe, 10/08/23) Home Meds Active Scripts Cefdinir (Cefdinir) 300 Mg Cap, 300 MG PO BID for 7 Days, #14 CAP Prov:KAYKAY MARINA MD 07/15/24 Docusate Sodium (Colace) 100 Mg Cap, 100 MG PO BIDPRN PRN for 30 Days, #50 CAP Prov:KAYKAY MARINA MD 07/15/24 Hydrocodone-Acetaminophen (Hydrocodone/Acetaminophen 5-325 mg) 1 Tab Tab, 1 TAB PO TIDP PRN for 8 Days, #24 TAB Prov:KAYKAY MARINA MD 07/15/24 Tamsulosin Hcl (Tamsulosin Hcl) 0.4 Mg Cap, 1 CAP PO DAILY, #30 CAP 5 Refills Prov:GABO BUNDY DO 10/08/23 Enalapril Maleate (Enalapril Maleate) 20 Mg Tab, 1 TAB PO DAILY, #30 TAB 1 Refill Prov:GABO BUNDY 10/08/23 Hydrocodone-Acetaminophen (Hydrocodone Bitartrate/AC 5-325 mg) 1 Tab Tab, 1 TAB PO Q8HP PRN for 7 Days, #21 TAB Prov:MARLEN DEWEY MD 06/30/23 Ciprofloxacin Hcl (Cipro) 500 Mg Tab, 1 TAB PO BID, #14 TAB Prov:MARLEN DEWEY MD 06/30/23 Tramadol Hcl (Tramadol Hcl) 50 Mg Tab, 50 MG PO Q8HP PRN for 5 Days, #15 TAB Prov:MARLEN DEWEY MD 06/30/23 Tamsulosin Hcl (Tamsulosin Hcl) 0.4 Mg Cap, 1 CAP PO DAILY, #30 CAP 5 Refills Prov:CARMELLA GARRISON 05/06/23 Hydrocodone-Acetaminophen (Hydrocodone Bitartrate/AC 10-325 mg) 1 Tab Tab, 1 TAB PO Q6HPRN PRN, #15 TAB Prov:CARMELLA GARRISON 05/06/23 Sulfamethoxazole W/Trimethopri (Bactrim Ds Tablet) 1 Tab Tb, 1 TAB PO BID for 5 Days, #10 TAB Prov:CARMELLA GARRISON 05/06/23 Pantoprazole Sodium Sesquihydr (Protonix) 40 Mg Tab, 40 MG PO DAILY for 20 Days, #20 TAB Prov:MARK FIGUEROA MD 04/20/23 Potassium Chloride (Klor-Con M20) 20 Meq Tab, 20 MEQ PO DAILY for 30 Days, #30 TAB 0 Refills Prov:TOREY GARRISON MD 08/13/19 Reported Medications Empagliflozin (Jardiance) 25 Mg Tab, 1 TAB PO 07/30/24 Furosemide (Furosemide) 20 Mg Tab, 1 TAB PO DAILY 07/30/24 Hctz (Hydrochlorothiazide) 25 Mg Tab, 25 MG PO DAILY, TAB 08/08/19 Review of Systems Constitutional: Yes: Other (Headache) Musculoskeletal: other (Right flank pain) Allergies: Coded Allergies: Amlodipine (Verified Allergy, Severe, 10/08/23) Gabapentin (Verified Allergy, Severe, 10/08/23) Tramadol (Verified Allergy, Severe, 10/08/23) Medications Current Medications Medications Dose Ordered Sig/Yarelis Route Start Time Stop Time Status Last Admin Dose Admin Acetaminophen/ Hydrocodone Bitart 1 tab Q4HP PRN PO 07/30/24 15:00 UNV Ondansetron HCl 4 mg Q4HP PRN IV 07/30/24 15:00 UNV Acetaminophen 650 mg Q6HP PRN PO 07/30/24 15:00 UNV Morphine Sulfate 2 mg Q4HPRN PRN IV 07/30/24 15:00 UNV Diagnostic Test (Pha) 1 strip ACHS 07/30/24 17:00 UNV Insulin Human Regular ACHS SC 07/30/24 17:00 UNV Dextrose 50 ml UD PRN IV 07/30/24 15:00 UNV Vital Signs Vital Signs Date Time Temp Pulse Resp B/P (MAP) Pulse Ox O2 Delivery O2 Flow Rate FiO2 08/01/24 20:46 70 17 140/77 08/01/24 17:15 97.0 96 97.0 08/01/24 08:00 Room Air* 0 21 Physical Exam NAD right nephrostomy tube draining Labs/Diagnostic Data Labs Test 08/01/24 16:43 07/31/24 10:30 07/31/24 06:03 07/30/24 13:07 Range/Units POC Glucose 97 70-106 mg/dl Urine Color Light-orange Yellow Urine Clarity Turbid H Clear Urine pH 6.0 5.0-9.0 Urine Specific [place] 1.019 1.001-1.035 Urine Protein 1+ H Negative Urine Ketones Trace Negative Urine Blood 2+ H Negative /uL Urine Nitrite Negative Negative Urine Bilirubin Negative Negative Urine Urobilinogen Normal Negative mg/dL Urine Leukocyte Esterase 3+ Negative /uL Urine RBC 23 0 - 4 /hpf Urine Microscopic WBC 390 H 0-5 /HPF Urine Squamous Epithelial Cells Few <5 /hpf Urine Bacteria Many H None Seen /hpf Urine Mucus Moderate None Seen Urine Glucose Normal Normal mg/dL Urine Opiates Screen Neg NEGATIVE Urine Fentanyl Screen Neg NEGATIVE Urine Barbiturates Screen Neg NEGATIVE Urine Phencyclidine Screen Neg NEGATIVE Urine Amphetamines Screen Pos NEGATIVE Urine Benzodiazepines Screen Neg NEGATIVE Urine Cocaine Screen Neg NEGATIVE Urine Cannabinoids Screen Pos NEGATIVE White Blood Count 8.8 # 4.4-10.8 10^3/uL Red Blood Count 5.08 4.0-5.20 10^6/uL Hemoglobin 13.8 12.2-16.2 g/dL Hematocrit 41.4 # 36.0-46.0 % Mean Corpuscular Volume 81.6 80.0-100.0 fL Mean Corpuscular Hemoglobin 27.2 L 28.0-32.0 pg Mean Corpuscular Hemoglobin Concent 33.4 32.0-36.0 g/dL Red Cell Distribution Width 15.6 H 11.8-14.3 % Platelet Count 327 140-450 10^3/uL Mean Platelet Volume 9.1 6.9-10.8 fL Neutrophils (%) (Auto) 66.4 37.0-80.0 % Lymphocytes (%) (Auto) 22.9 10.0-50.0 % Monocytes (%) (Auto) 9.1 0.0-12.0 % Eosinophils (%) (Auto) 1.2 0.0-7.0 % Basophils (%) (Auto) 0.4 0.0-2.0 % Neutrophils # (Auto) 5.8 1.6-8.6 10 ^3/uL Lymphocytes # (Auto) 2.0 0.4-5.4 10 ^3/uL Monocytes # (Auto) 0.8 0-1.3 10 ^3/uL Eosinophils # (Auto) 0.1 0-0.8 10 ^3/uL Basophils # (Auto) 0 0-0.2 10 ^3/uL Nucleated Red Blood Cells 0.0 % Sodium Level 141 136-145 mmol/L Potassium Level 4.0 3.5-5.1 mmol/L Chloride Level 102 98-107 mmol/L Carbon Dioxide Level 29 20-31 mmol/L Anion Gap 10 5-15 Blood Urea Nitrogen 10 9-23 mg/dL Creatinine 1.08 H 0.550-1.02 mg/dL Glomerular Filtration Rate Calc 62 >90 mL/min BUN/Creatinine Ratio 9.3 L 10.0-20.0 Serum Glucose 99 74-106 mg/dL Calcium Level 10.1 8.7-10.4 mg/dL Total Bilirubin 0.3 0.2-1.0 mg/dL Aspartate Amino Transferase (AST) 13 <34 U/L Alanine Aminotransferase (ALT) 11 7-40 U/L Alkaline Phosphatase 132 H 46-116 U/L Total Protein 7.1 5.7-8.2 g/dL Albumin 4.0 3.2-4.8 g/dL Prothrombin Time 11.1 9.3-11.8 sec Prothrombin Time INR 1.05 0.9-1.15 Activated Partial Thromboplast Time 29.2 24.5-34.5 SEC Lactic Acid Level 1.5 0.4-2.0 mmol/L Microbiology Date/Time Source Procedure Growth Status 07/30/24 13:07 Blood Blood Culture - Preliminary NO GROWTH AFTER 48 HOURS OF INCUBATION. Resulted Assessment Right proximal ureteral stone, 7 mm Right PNT in situ Plan/Recommendation Right ESWL, possible stent placement TBA Plan discussed with: Patient, Other JAYLEN HAZEL MD Aug 01, 2024 22:28
[2024-08-02] VITALS (11 sets, daily range): BP systolic 112–171; BP diastolic 74–105; PULSE 63–127; RESP 16–21; TEMP 97.7–98.9; O2SAT 91–100
[2024-08-02] MEDS ORDERED: MIDAZOLAM HCL 2MG/2ML 2ml VIAL (1mg/ml) ONE (14:02)
[2024-08-02] MEDS ORDERED: LIDOCAINE 2%HCL (LOCAL ANESTH.) INJ 20ML MDV ONE (14:02)
[2024-08-02] MEDS ORDERED: fentaNYL CITRATE 100 MCG/2 ML VL ONE (14:02)
[2024-08-02] MEDS ORDERED: IODIXANOL 320MG/ML 100ML BTL IV ONE (14:03)
--- NOTE | 2024-08-02 15:26 | DVH ---
XY CHANGE PERC. DRAIN W CONTRAST, HISTORY: Nephrostomy tube exchange and repositioning due to infection. PROCEDURE: Informed consent was obtained. The patient was placed on the fluoroscopic table in a prone position and IV sedation administered. The right flank was prepped with chlorhexidine which was allo wed to dry and draped in the usual sterile fashion. Time out was performed. and the soft tissues infi ltrated with 1% lidocaine local anesthetic. An antegrade nephrostogram was performed to confirm posit ion of the previous nephrostomy tube. The tube was cut and a glidewire was inserted through the neph rostomy tube into the ureter. The prior nephrostomy tube was removed, and a new 8.5 Fr multipurpose d rainage catheter was advanced into the renal pelvis/proximal ureter over a wire. Completion antegrade nephrostogram demonstrates appropriate position of the new nephrostomy tube in the renal pelvis. The catheter was secured in place and connected to gravity drainage. A sterile dressing was applied. No immediate complication was identified. DAP 452 FLUOROSCOPY TIME: 2.8 minutes. CONTRAST USED: 20 mL . SEDATION: Dr. Vanessa Reyes was personally responsible for the administration of moderate sedation during the procedure performed, including the use of an independent trained observer who had no other duties during the procedure. The drugs utilized were IV fentanyl and versed (see nursing log for details). The total time of supervision by the attending physician was approximately 30 minutes. FINDINGS: The old nephrostomy tube had been retracted partially out of the kidney. Exchange and repos ition for a new 8.5 Fr nephrostomy tube into the renal pelvis and proximal ureter due to a small jeff l pelvis. Contrast visualized to end at the distal ureter suggesting the stone is in the distal uret er. IMPRESSION: Old nephrostomy tube had been retracted partially out of the kidney. Exchange and reposition for a new 8.5 Fr nephrostomy tube into the renal pelvis and proximal ureter d ue to a small renal pelvis. Contrast visualized to end at the distal ureter suggesting the stone is in the distal ureter. PLAN: Routine catheter care.
--- NOTE | 2024-08-02 16:23 | DVHPN2 ---
Subjective ED patient is currently in label pinker for replacement of malfunctioning right nephrostomy tube. Reviewed: Care Plan Changes from previous H/P or p: No Changes Musculoskeletal: other (Right flank pain) Objective Vitals Vital Signs Date Time Temp Pulse Resp B/P (MAP) Pulse Ox O2 Delivery O2 Flow Rate FiO2 08/02/24 15:37 89 21 163/105 (124) 98 08/02/24 14:52 98.0 98.0 08/02/24 08:00 Room Air* 0 21 Intake/Output Intake and Output 08/02/24 07:00 Intake Total 1520 ml Output Total 170 ml Balance 1350 ml Intake Oral 1470 ml IV Total 50 ml Output Urine Total 170 ml # Voids 5 Medications Current Medications Medications Dose Ordered Sig/Yarelis Route Start Time Stop Time Status Last Admin Dose Admin Acetaminophen/ Hydrocodone Bitart 1 tab Q4HP PRN PO 07/30/24 15:00 Ondansetron HCl 4 mg Q4HP PRN IV 07/30/24 15:00 07/30/24 15:14 4 MG Acetaminophen 650 mg Q6HP PRN PO 07/30/24 15:00 Morphine Sulfate 2 mg Q4HPRN PRN IV 07/30/24 15:00 UNV Diagnostic Test (Pha) 1 strip ACHS 07/30/24 17:00 08/02/24 11:50 1 STRIP Insulin Human Regular ACHS SC 07/30/24 17:00 Dextrose 50 ml UD PRN IV 07/30/24 15:00 Hydrochlorothiazide 25 mg DAILY PO 07/31/24 10:00 08/01/24 08:48 25 MG Pantoprazole Sodium 40 mg DAILY PO 07/31/24 10:00 08/01/24 08:47 40 MG Tamsulosin HCl 0.4 mg DAILY PO 07/31/24 10:00 08/01/24 08:47 0.4 MG Patient Own Medication 1 tab DAILY PO 07/31/24 10:00 UNV Ceftriaxone Sodium 50 ml @ 100 mls/hr DAILY@09 IV 07/31/24 09:00 08/02/24 09:26 100 MLS/HR Hydralazine HCl 10 mg Q6HP PRN IV 07/30/24 18:00 Hydromorphone HCl 0.5 mg Q4HPRN PRN IV 07/30/24 21:00 08/02/24 15:16 0.5 MG Laboratory Results Laboratory Tests 07/31/24 06:03 Urinalysis Test 07/31/24 10:30 Urine Color Light-orange (Yellow) Urine Clarity Turbid (Clear) H Urine pH 6.0 (5.0-9.0) Urine Specific [place] 1.019 (1.001-1.035) Urine Protein 1+ (Negative) H Urine Ketones Trace (Negative) Urine Blood 2+ /uL (Negative) H Urine Nitrite Negative (Negative) Urine Bilirubin Negative (Negative) Urine Urobilinogen Normal mg/dL (Negative) Urine Leukocyte Esterase 3+ /uL (Negative) Urine RBC 23 /hpf (0 - 4) Urine Microscopic WBC 390 /HPF (0-5) H Urine Squamous Epithelial Cells Few /hpf (<5) Urine Bacteria Many /hpf (None Seen) H Urine Mucus Moderate (None Seen) Urine Glucose Normal mg/dL (Normal) Microbiology Microbiology Date/Time Source Procedure Growth Status 07/30/24 13:07 Blood Blood Culture - Preliminary NO GROWTH AFTER 72 HOURS OF INCUBATION. Resulted Assessment/Plan Assessment/Plan 49-year-old female with a known history of hypertension, chronic tobacco use disorder, chronic marijuana use, chronic alcoholism, diabetes mellitus type 2, history of recurrent kidney stone status post right nephrostomy tube placement presented to the hospital with a right flank pain found to have 1. Malfunctioning right nephrostomy tube status post replacement of percutaneous nephrostomy tube 2. Right ureteric stone pending cystoscopy and ESWL 3. Hypertension 4. Diabetes mellitus type 2 5. Chronic alcoholism 6. Chronic marijuana use 7. Chronic tobacco use disorder 8. Morbid obesity classI -pain meds as needed -recheck CBC, BMP discharge plan per Urology Plan discussed with: Other Date of Service: Aug 02, 2024 Billing Provider: TERELL FARAH MD Common Visit Codes: [id number] INP/OBS CARE(MOD) TERELL FARAH MD Aug 02, 2024 16:23
[2024-08-02] MEDS: HYDROmorphone HCL 2 MG/ML VL/or syr IV ONE (17:39)
[2024-08-02] MEDS: METOPROLOL TARTRATE 25 MG TAB PO ONE (17:50)
[2024-08-02] MEDS: METOPROLOL TARTRATE 25 MG TAB PO SCH (23:00)
[2024-08-03] VITALS (9 sets, daily range): BP systolic 101–143; BP diastolic 56–82; PULSE 55–120; RESP 14–18; TEMP 97.5–98.8; O2SAT 93–97
[2024-08-03] MEDS ORDERED: KETAMINE 50mg/ML 1ml syringe ONE (12:02)
[2024-08-03] MEDS ORDERED: MIDAZOLAM HCL 2MG/2ML 2ml VIAL (1mg/ml) ONE (12:02)
[2024-08-03] MEDS ORDERED: LIDOCAINE 1% INJ PF 5ML AMP ONE (12:02)
[2024-08-03] MEDS ORDERED: ONDANSETRON HCL 4 MG/2 ML VIAL ONE (12:02)
[2024-08-03] MEDS ORDERED: SODIUM CHLORIDE LOCK 10 ML ONE (12:02)
[2024-08-03] MEDS ORDERED: PROPOFOL 10 MG/ML 20 ML IV ONE (12:02)
[2024-08-03] MEDS ORDERED: fentaNYL CITRATE 100 MCG/2 ML VL ONE ×2 (12:02→13:48)
[2024-08-03] MEDS ORDERED: MORPHINE SULFATE INJ 2 MG/ml SYRG IV PRN (12:15)
[2024-08-03] MEDS ORDERED: METOCLOPRAMIDE HCL 5MG/ml INJ 2ml VIAL IV ONE (12:15)
[2024-08-03] MEDS ORDERED: ACCU-CHEK COMFORT CURVE STRIP VI ONE (12:15)
[2024-08-03] MEDS ORDERED: MORPHINE SULFATE 4 MG/ML SYR/VIAL IV PRN (12:15)
[2024-08-03] MEDS ORDERED: HYDROmorphone HCL 2 MG/ML VL/or syr IV PRN ×2 (12:15)
[2024-08-03] MEDS ORDERED: KETOROLAC TROMETH 30 MG/ML 1ML VIAL IV ONE (12:15)
[2024-08-03] MEDS ORDERED: ceFAZolin 2 GM/D5W50ml 50 ML IV ONE (13:11)
--- NOTE | 2024-08-03 14:17 | DVHNC2 ---
Procedure - OPERATIVE REPORT Pre-op. Diagnosis: Right proximal ureteral stone Right PNT in situ Right hydronephrosis Right flank pain Obesity, morbid Post-op. Diagnosis: Right mid/distal ureteral stone Right Percutaneous Nephrostomy, in situ Operation: Extracorporeal Shockwave Lithotripsy Right nephrostogram Anesthesia: General Indications: Patient was found to have symptomatic Urolithiasis. Patient is here to undergo ESWL therapy. Informed Consent: The procedure was explained to the patient. It's risks include but not limited to infection, bleeding, and damage to the kidney. Patient fully understood and signed the consent. Other options such as watchful waiting, Ureteroscopy, Percutaneous surgery and open surgery were also discussed. Details of Procedure: Under satisfactory anesthesia, the patient was positioned on the lithotripsy table in prone position in order to appropriately treat the stone in the pelvic inlet location. Using fluoroscopy the stone was localized via contrast injection into the nephrostomy tube. Starting at low energy levels, shockwave treatment was commenced. The energy level was gradually increased and stone was fragmented. Once the treatment was completed, patient was then repositioned and taken off the lithotripsy table and sent to recovery room in stable condition. Specimens: None JAYLEN HAZEL MD Aug 03, 2024 14:16
[2024-08-03] MEDS ORDERED: SUGAMMADEX 200mg/2ml Vial (100MG/ML) IV ONE (14:22)
[2024-08-03 15:21] LABS: Basophils # (auto) 0.1 10 ^3/uL (0-0.2); Basophils % (auto) 0.5 % (0.0-2.0); Eosinophils # (auto) 0.4 10 ^3/uL (0-0.8); Eosinophils % (auto) 2.4 % (0.0-7.0); Hematocrit 40.1 % (36.0-46.0); Hemoglobin 13.2 g/dL (12.2-16.2); Lymphocytes # (auto) 3.3 10 ^3/uL (0.4-5.4); Lymphocytes % (auto) 21.6 % (10.0-50.0); Mean Corpuscular Hgb Conc. 32.9 g/dL (32.0-36.0); Monocytes # (auto) 1.4 10 ^3/uL (0-1.3); Neutrophils # (auto) 10.1 10 ^3/uL (1.6-8.6); Neutrophils % (auto) 66.5 % (37.0-80.0); Nucleated Red Blood Cells % 0.1 %; Platelet Count (auto) 282 10^3/uL (140-450); Red Cell Distribution Width 15.4 % (11.8-14.3); White Blood Cell 15.2 10^3/uL (4.4-10.8)
[2024-08-03 15:30] LABS: Chloride 101 mmol/L (98-107); Potassium 3.6 mmol/L (3.5-5.1); Sodium 138 mmol/L (136-145)
[2024-08-03 15:31] LABS: Anion Gap 10 (5-15); Carbon Dioxide 27 mmol/L (20-31)
[2024-08-03 15:32] LABS: Calcium 10.2 mg/dL (8.7-10.4)
[2024-08-03 15:36] LABS: Blood Urea Nitrogen 17 mg/dL (9-23); Glucose 103 mg/dL (74-106)
--- NOTE | 2024-08-03 18:04 | DVHPN2 ---
Subjective Patient is status post nephrostomy tube placement by IR yesterday, today she is going for cystoscopy with ESWL of the right ureteric stone. Reviewed: Care Plan Changes from previous H/P or p: No Changes Musculoskeletal: other (Right flank pain) Objective Vitals Vital Signs Date Time Temp Pulse Resp B/P (MAP) Pulse Ox O2 Delivery O2 Flow Rate FiO2 08/03/24 17:41 75 17 121/79 08/03/24 17:00 97.5 96 97.5 08/03/24 14:56 Room Air 97 08/03/24 07:55 0 Intake/Output Intake and Output 08/03/24 07:00 Intake Total 550 ml Balance 550 ml Intake Oral 500 ml IV Total 50 ml # Voids 3 Medications Current Medications Medications Dose Ordered Sig/Yarelis Route Start Time Stop Time Status Last Admin Dose Admin Acetaminophen/ Hydrocodone Bitart 1 tab Q4HP PRN PO 07/30/24 15:00 Ondansetron HCl 4 mg Q4HP PRN IV 07/30/24 15:00 08/02/24 17:03 4 MG Acetaminophen 650 mg Q6HP PRN PO 07/30/24 15:00 Morphine Sulfate 2 mg Q4HPRN PRN IV 07/30/24 15:00 UNV Diagnostic Test (Pha) 1 strip ACHS 07/30/24 17:00 08/03/24 17:32 1 STRIP Insulin Human Regular ACHS SC 07/30/24 17:00 Dextrose 50 ml UD PRN IV 07/30/24 15:00 Hydrochlorothiazide 25 mg DAILY PO 07/31/24 10:00 08/01/24 08:48 25 MG Pantoprazole Sodium 40 mg DAILY PO 07/31/24 10:00 08/01/24 08:47 40 MG Tamsulosin HCl 0.4 mg DAILY PO 07/31/24 10:00 08/01/24 08:47 0.4 MG Patient Own Medication 1 tab DAILY PO 07/31/24 10:00 UNV Ceftriaxone Sodium 50 ml @ 100 mls/hr DAILY@09 IV 07/31/24 09:00 08/03/24 08:36 100 MLS/HR Hydralazine HCl 10 mg Q6HP PRN IV 07/30/24 18:00 Hydromorphone HCl 0.5 mg Q4HPRN PRN IV 07/30/24 21:00 08/03/24 17:41 0.5 MG Metoprolol Tartrate 25 mg BID PO 08/02/24 22:00 08/02/24 23:00 25 MG Laboratory Results Laboratory Tests 08/03/24 15:00 Chemistry Test 08/03/24 15:00 Calcium Level 10.2 mg/dL (8.7-10.4) Urinalysis Test 07/31/24 10:30 Urine Color Light-orange (Yellow) Urine Clarity Turbid (Clear) H Urine pH 6.0 (5.0-9.0) Urine Specific [place] 1.019 (1.001-1.035) Urine Protein 1+ (Negative) H Urine Ketones Trace (Negative) Urine Blood 2+ /uL (Negative) H Urine Nitrite Negative (Negative) Urine Bilirubin Negative (Negative) Urine Urobilinogen Normal mg/dL (Negative) Urine Leukocyte Esterase 3+ /uL (Negative) Urine RBC 23 /hpf (0 - 4) Urine Microscopic WBC 390 /HPF (0-5) H Urine Squamous Epithelial Cells Few /hpf (<5) Urine Bacteria Many /hpf (None Seen) H Urine Mucus Moderate (None Seen) Urine Glucose Normal mg/dL (Normal) Microbiology Microbiology Date/Time Source Procedure Growth Status 07/30/24 13:07 Blood Blood Culture - Preliminary NO GROWTH AFTER 72 HOURS OF INCUBATION. Resulted Assessment/Plan Assessment/Plan 49-year-old female with a known history of hypertension, chronic tobacco use disorder, chronic marijuana use, chronic alcoholism, diabetes mellitus type 2, history of recurrent kidney stone status post right nephrostomy tube placement presented to the hospital with a right flank pain found to have 1. Malfunctioning right nephrostomy tube status post replacement of percutaneous nephrostomy tube 2. Right ureteric stone pending cystoscopy and ESWL 3. Hypertension 4. Diabetes mellitus type 2 5. Chronic alcoholism 6. Chronic marijuana use 7. Chronic tobacco use disorder 8. Morbid obesity classI -pain meds as needed -recheck CBC, BMP discharge plan per Urology Plan discussed with: Other Date of Service: Aug 03, 2024 Billing Provider: TERELL FARAH MD Common Visit Codes: [id number] INP/OBS CARE(MOD) TERELL FARAH MD Aug 03, 2024 18:04
[2024-08-04] VITALS (8 sets, daily range): BP systolic 114–133; BP diastolic 54–85; PULSE 53–102; RESP 17–20; TEMP 97.6–98.3; O2SAT 95–100
[2024-08-04] MEDS: HYDROcodone-ACET 5/325MG TAB PO PRN (08:58)
--- NOTE | 2024-08-04 16:37 | DVHPN2 ---
Subjective Patient is status post nephrostomy tube placement by IR yesterday, status post cystoscopy with a ESWL of the right ureteric stone. Reviewed: Care Plan Changes from previous H/P or p: No Changes Musculoskeletal: other (Right flank pain) Objective Vitals Vital Signs Date Time Temp Pulse Resp B/P (MAP) Pulse Ox O2 Delivery O2 Flow Rate FiO2 08/04/24 15:14 61 15 102/58 08/04/24 13:00 97.8 100 97.8 08/04/24 08:00 Room Air* 0 21 Intake/Output Intake and Output 08/04/24 07:00 Intake Total 500 ml Balance 500 ml Intake Oral 350 ml IV Total 150 ml # Voids 4 Medications Current Medications Medications Dose Ordered Sig/Yarelis Route Start Time Stop Time Status Last Admin Dose Admin Acetaminophen/ Hydrocodone Bitart 1 tab Q4HP PRN PO 07/30/24 15:00 Ondansetron HCl 4 mg Q4HP PRN IV 07/30/24 15:00 08/02/24 17:03 4 MG Acetaminophen 650 mg Q6HP PRN PO 07/30/24 15:00 Morphine Sulfate 2 mg Q4HPRN PRN IV 07/30/24 15:00 UNV Diagnostic Test (Pha) 1 strip ACHS 07/30/24 17:00 08/04/24 11:23 1 STRIP Insulin Human Regular ACHS SC 07/30/24 17:00 Dextrose 50 ml UD PRN IV 07/30/24 15:00 Hydrochlorothiazide 25 mg DAILY PO 07/31/24 10:00 08/04/24 08:59 25 MG Pantoprazole Sodium 40 mg DAILY PO 07/31/24 10:00 08/04/24 08:59 40 MG Tamsulosin HCl 0.4 mg DAILY PO 07/31/24 10:00 08/04/24 08:58 0.4 MG Patient Own Medication 1 tab DAILY PO 07/31/24 10:00 UNV Ceftriaxone Sodium 50 ml @ 100 mls/hr DAILY@09 IV 07/31/24 09:00 08/04/24 08:59 100 MLS/HR Hydralazine HCl 10 mg Q6HP PRN IV 07/30/24 18:00 Hydromorphone HCl 0.5 mg Q4HPRN PRN IV 07/30/24 21:00 08/04/24 14:44 0.5 MG Metoprolol Tartrate 25 mg BID PO 08/02/24 22:00 08/04/24 08:59 25 MG Docusate Sodium 100 mg HS PO 08/04/24 22:00 Laboratory Results Laboratory Tests 08/03/24 15:00 Urinalysis Test 07/31/24 10:30 Urine Color Light-orange (Yellow) Urine Clarity Turbid (Clear) H Urine pH 6.0 (5.0-9.0) Urine Specific [place] 1.019 (1.001-1.035) Urine Protein 1+ (Negative) H Urine Ketones Trace (Negative) Urine Blood 2+ /uL (Negative) H Urine Nitrite Negative (Negative) Urine Bilirubin Negative (Negative) Urine Urobilinogen Normal mg/dL (Negative) Urine Leukocyte Esterase 3+ /uL (Negative) Urine RBC 23 /hpf (0 - 4) Urine Microscopic WBC 390 /HPF (0-5) H Urine Squamous Epithelial Cells Few /hpf (<5) Urine Bacteria Many /hpf (None Seen) H Urine Mucus Moderate (None Seen) Urine Glucose Normal mg/dL (Normal) Microbiology Microbiology Date/Time Source Procedure Growth Status 07/30/24 13:07 Blood Blood Culture - Final NO GROWTH AFTER 5 DAYS OF INCUBATION. Complete Assessment/Plan Assessment/Plan 49-year-old female with a known history of hypertension, chronic tobacco use disorder, chronic marijuana use, chronic alcoholism, diabetes mellitus type 2, history of recurrent kidney stone status post right nephrostomy tube placement presented to the hospital with a right flank pain found to have 1. Malfunctioning right nephrostomy tube status post replacement of percutaneous nephrostomy tube 2. Right ureteric stone pending cystoscopy and ESWL 3. Hypertension 4. Diabetes mellitus type 2 5. Chronic alcoholism 6. Chronic marijuana use 7. Chronic tobacco use disorder 8. Morbid obesity classI -pain meds as needed , -recheck CBC, BMP discharge plan per Urology once hematuria clears up. Plan discussed with: Patient My Orders Orders - TERELL FARAH MD Procedure Category Date Status Time Docusate Sodium PHA 08/04/24 In Process Capsule (Colace 22:00 Date of Service: Aug 04, 2024 Billing Provider: TERELL FARAH MD Common Visit Codes: [id number] INP/OBS CARE(MOD) TERELL FARAH MD Aug 04, 2024 16:37
[2024-08-04] MEDS: DOCUSATE SOD 100 MG CAP PO SCH (21:03)
[2024-08-05 01:00] VITALS: BP 119/72; PULSE 61; RESP 17; TEMP 98.6; O2SAT 95
[2024-08-05 05:00] VITALS: BP 122/77; PULSE 60; RESP 18; TEMP 99; O2SAT 95
[2024-08-05 08:00] VITALS: PULSE 75
[2024-08-05 09:32] VITALS: BP 133/82; PULSE 71; RESP 16; TEMP 98.6; O2SAT 96
[2024-08-05] MEDS ORDERED: CEFD300C2 PO (13:41)
[2024-08-05] MEDS ORDERED: HYDR-4902 PO (13:41)
[2024-08-05] MEDS ORDERED: NALO4SPR2 (13:43)
--- NOTE | 2024-08-05 13:44 | DVHDS2 ---
Discharge Summary Date of Admission Jul 30, 2024 at 14:59 Date of Discharge: Aug 05, 2024 Labs/Diagnostic Data: Laboratory Results Test 08/05/24 11:55 08/03/24 15:00 07/31/24 10:30 07/31/24 06:03 POC Glucose 97 mg/dl (70-106) White Blood Count 15.2 10^3/uL (4.4-10.8) Red Blood Count 4.90 10^6/uL (4.0-5.20) Hemoglobin 13.2 g/dL (12.2-16.2) Hematocrit 40.1 % (36.0-46.0) Mean Corpuscular Volume 82.0 fL (80.0-100.0) Mean Corpuscular Hemoglobin 27.0 pg (28.0-32.0) Mean Corpuscular Hemoglobin Concent 32.9 g/dL (32.0-36.0) Red Cell Distribution Width 15.4 % (11.8-14.3) Platelet Count 282 10^3/uL (140-450) Mean Platelet Volume 8.7 fL (6.9-10.8) Neutrophils (%) (Auto) 66.5 % (37.0-80.0) Lymphocytes (%) (Auto) 21.6 % (10.0-50.0) Monocytes (%) (Auto) 9.0 % (0.0-12.0) Eosinophils (%) (Auto) 2.4 % (0.0-7.0) Basophils (%) (Auto) 0.5 % (0.0-2.0) Neutrophils # (Auto) 10.1 10 ^3/uL (1.6-8.6) Lymphocytes # (Auto) 3.3 10 ^3/uL (0.4-5.4) Monocytes # (Auto) 1.4 10 ^3/uL (0-1.3) Eosinophils # (Auto) 0.4 10 ^3/uL (0-0.8) Basophils # (Auto) 0.1 10 ^3/uL (0-0.2) Nucleated Red Blood Cells 0.1 % Sodium Level 138 mmol/L (136-145) Potassium Level 3.6 mmol/L (3.5-5.1) Chloride Level 101 mmol/L (98-107) Carbon Dioxide Level 27 mmol/L (20-31) Anion Gap 10 (5-15) Blood Urea Nitrogen 17 mg/dL (9-23) Creatinine 1.42 mg/dL (0.550-1.02) Glomerular Filtration Rate Calc 45 mL/min (>90) BUN/Creatinine Ratio 12.0 (10.0-20.0) Serum Glucose 103 mg/dL (74-106) Calcium Level 10.2 mg/dL (8.7-10.4) Urine Color Light-orange (Yellow) Urine Clarity Turbid (Clear) Urine pH 6.0 (5.0-9.0) Urine Specific [place] 1.019 (1.001-1.035) Urine Protein 1+ (Negative) Urine Ketones Trace (Negative) Urine Blood 2+ /uL (Negative) Urine Nitrite Negative (Negative) Urine Bilirubin Negative (Negative) Urine Urobilinogen Normal mg/dL (Negative) Urine Leukocyte Esterase 3+ /uL (Negative) Urine RBC 23 /hpf (0 - 4) Urine Microscopic WBC 390 /HPF (0-5) Urine Squamous Epithelial Cells Few /hpf (<5) Urine Bacteria Many /hpf (None Seen) Urine Mucus Moderate (None Seen) Urine Glucose Normal mg/dL (Normal) Urine Opiates Screen Neg (NEGATIVE) Urine Fentanyl Screen Neg (NEGATIVE) Urine Barbiturates Screen Neg (NEGATIVE) Urine Phencyclidine Screen Neg (NEGATIVE) Urine Amphetamines Screen Pos (NEGATIVE) Urine Benzodiazepines Screen Neg (NEGATIVE) Urine Cocaine Screen Neg (NEGATIVE) Urine Cannabinoids Screen Pos (NEGATIVE) Total Bilirubin 0.3 mg/dL (0.2-1.0) Aspartate Amino Transferase (AST) 13 U/L (<34) Alanine Aminotransferase (ALT) 11 U/L (7-40) Alkaline Phosphatase 132 U/L (46-116) Total Protein 7.1 g/dL (5.7-8.2) Albumin 4.0 g/dL (3.2-4.8) Test 07/30/24 13:07 Prothrombin Time 11.1 sec (9.3-11.8) Prothrombin Time INR 1.05 (0.9-1.15) Activated Partial Thromboplast Time 29.2 SEC (24.5-34.5) Lactic Acid Level 1.5 mmol/L (0.4-2.0) Other Laboratory Tests 6/24/25 15:00 Brief Hx & Hospital Course: 49-year-old female with a known history of hypertension, chronic tobacco use disorder, chronic marijuana use, chronic alcoholism, diabetes mellitus type 2, history of recurrent kidney stone status post right nephrostomy tube placement presented to the hospital with a right flank pain found to have a functioning right nephrostomy tube. Patient was seen by IR status post replacement of percutaneous nephrostomy tube. Patient's hematuria resolved. She was taken to urology: Surgery in which patient underwent cystoscopy with a ESWL of right ureteric stone. Postoperatively patient did fairly well. Patient is cleared by Urology to be discharged. Patient will be discharged on p.o. antibiotics. Patient will be given pain medications. Patient needs to follow up with the PCP in one week follow up with the Urology in one week. Currently understand verbalized understanding and agreeable to plan. Complete alcohol sedation has been as marijuana and tobacco cessation counseling has been discussed. Patient is being discharged under stable condition with close follow up as an outpatient with the Urology. Condition at Discharge: Stable Final Diagnosis/Problems List 49-year-old female with a known history of hypertension, chronic tobacco use disorder, chronic marijuana use, chronic alcoholism, diabetes mellitus type 2, history of recurrent kidney stone status post right nephrostomy tube placement presented to the hospital with a right flank pain found to have 1. Malfunctioning right nephrostomy tube status post replacement of percutaneous nephrostomy tube 2. Right ureteric stone pending cystoscopy and ESWL 3. Hypertension 4. Diabetes mellitus type 2 5. Chronic alcoholism 6. Chronic marijuana use 7. Chronic tobacco use disorder 8. Morbid obesity classI Discharge Disposition: Home SNF Discharge Will this Physician continue t: No Discharge Instruct/Medications Diet: Cardiac 2g Na,low cholest Activity: See Comment Activity comment: No driving, no signing of legal documents, no planning on heavy machinery while on narcotics. Follow Up/Referral: Follow up with the PCP in 1-2 weeks Follow up with Dr William HAZEL in one week Medications: Cefdinir and Graham as prescribed Discharge Statement: "Patient was advised to return to the ER or call 911 if any headaches, dizziness, shortness of breath, chest pain, abdominal pain, bleeding, fevers, or worsening of medical condition. Patient was counseled about treatment plan, medications, possible side effects, patientverbalized understanding. All questions were answered to the best of my ability. This discharge took greater then 30 minutes in planning, reviewing documentation, counseling the patient, and discussing with other team members." ASSESSMENT ASSESSMENT Assessment 49-year-old female with a known history of hypertension, chronic tobacco use disorder, chronic marijuana use, chronic alcoholism, diabetes mellitus type 2, history of recurrent kidney stone status post right nephrostomy tube placement presented to the hospital with a right flank pain found to have 1. Malfunctioning right nephrostomy tube status post replacement of percutaneous nephrostomy tube 2. Right ureteric stone pending cystoscopy and ESWL 3. Hypertension 4. Diabetes mellitus type 2 5. Chronic alcoholism 6. Chronic marijuana use 7. Chronic tobacco use disorder 8. Morbid obesity classI Date of Service: Aug 05, 2024 Billing Provider: TERELL FARAH MD Common Visit Codes: [id number] DISCH DAY >30min TERELL FARAH MD Aug 05, 2024 13:44
[2024-08-05 14:13] VITALS: BP 129/94; PULSE 63; RESP 17; TEMP 98; O2SAT 98
[2024-08-05 17:00] VITALS: BP 136/95; PULSE 95; RESP 18; TEMP 98.4; O2SAT 94
== END 2024-08-05 19:52 | disposition home or self-care (01) | DRG 446 ==
LOC: EDBD 11:37 → ER 11:37 → OVERFLOW 14:59 → TELE-WESTW 07-31 16:59
PROVIDERS: ADMIT Internal Medicine; ATTEND Internal Medicine
PROC: 0T25X0Z Change Drainage Device in Kidney, External Approach (ICD-10-PCS; 2024-08-02)
PROC: 0TF6XZZ Fragmentation in Right Ureter, External Approach (ICD-10-PCS; 2024-08-03)
PROC: BT141ZZ Fluoroscopy of Kidneys, Ureters and Bladder using Low Osmolar Contrast (ICD-10-PCS; 2024-08-03)
PROC: 0TC68ZZ Extirpation of Matter from Right Ureter, Via Natural or Artificial Opening Endoscopic (ICD-10-PCS; principal; 2024-08-03 13:28)
DX: N99.528 Other complication of incontinent external stoma of urinary tract (principal); N17.0 Acute kidney failure with tubular necrosis; N13.2 Hydronephrosis with renal and ureteral calculous obstruction; E11.9 Type 2 diabetes mellitus without complications; E66.01 Morbid (severe) obesity due to excess calories; I16.0 Hypertensive urgency; I10 Essential (primary) hypertension; Z68.32 Body mass index [BMI] 32.0-32.9, adult; F10.20 Alcohol dependence, uncomplicated; E87.6 Hypokalemia; K21.9 Gastro-esophageal reflux disease without esophagitis; F17.210 Nicotine dependence, cigarettes, uncomplicated; F12.90 Cannabis use, unspecified, uncomplicated; I25.2 Old myocardial infarction; Z88.8 Allergy status to other drugs, medicaments and biological substances; Z90.49 Acquired absence of other specified parts of digestive tract; Z87.442 Personal history of urinary calculi; Z83.3 Family history of diabetes mellitus; Y83.8 Other surgical procedures as the cause of abnormal reaction of the patient, or of later complication, without mention of misadventure at the time of the procedure
CPT/HCPCS: 36415; 50435; 74176; 75984; 80048; 80053; 80307; 81001; 82962; 83605; 85025; 85610; 85730; 87040; 96365; 96375; 99152; A4344; G0378; J2250; J2405; J2704; Q9967